=== PATIENT | male | born 1965 | race Caucasian/White ===

== ENCOUNTER 2018-06-07 11:35 | Inpatient (IN) | payer OTHER ==
[2018-06-07 12:41] VITALS: BMI 30.2
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
[2018-06-07] MEDS ORDERED: MAGNESIUM HYDROX 2400MG/30ML ORAL SUSPENSION 30 ML CUP PO PRN (17:07)
[2018-06-07] MEDS ORDERED: IBUPROFEN 400 MG TABLET (FP) PO PRN (17:07)
[2018-06-07] MEDS ORDERED: MAGNESIUM CITRATE 300 ML BOTTLE PO PRN (17:07)
[2018-06-07] MEDS ORDERED: MENTHOL/PHENOL 1 EACH UD MM PRN (17:07)
[2018-06-07] MEDS ORDERED: ACETAMINOPHEN 325 MG TABLET (FP) PO PRN (17:07)
[2018-06-07] MEDS ORDERED: chlordiazePOXIDE HCL 25 MG CAPSULE PO PRN (17:07)
[2018-06-07] MEDS ORDERED: P-EPHED 60MG/TRIPROLIDI 2.5MG TABLET PO PRN (17:07)
[2018-06-07] MEDS ORDERED: MAG HYDROX/AL HYDROX/SIMETH 30 ML UNIT-DOSE CUP PO PRN (17:07)
[2018-06-07] MEDS ORDERED: guaiFENesin/D-METHORPHAN HB 10 ML UNIT-DOSE CUPS PO PRN (17:07)
[2018-06-07] MEDS ORDERED: LOPERAMIDE HCL 2 MG CAPSULE PO PRN (17:07)
[2018-06-07] MEDS ORDERED: hydrOXYzine PAMOATE 50 MG CAPSULE (FP) PO PRN (17:07)
[2018-06-07] MEDS ORDERED: METHADONE HCL 10 MG TABLET (FOR DETOX USE ONLY) PO ONE ×2 (17:30→23:00)
[2018-06-07] MEDS ORDERED: chlordiazePOXIDE HCL 25 MG CAPSULE PO ONE (17:30)
[2018-06-07] MEDS: chlordiazePOXIDE HCL 25 MG CAPSULE PO SCH ×2 (19:59→22:38)
[2018-06-07] MEDS ORDERED: MELATONIN 5 MG TABLETS PO PRN (22:00)
[2018-06-07] MEDS: THIAMINE HCL 100 MG TABLET (FP) PO SCH (22:38)
[2018-06-08] MEDS: chlordiazePOXIDE HCL 25 MG CAPSULE PO SCH ×4 (06:22→22:22)
[2018-06-08] MEDS ORDERED: METHADONE HCL 10 MG TABLET (FOR DETOX USE ONLY) PO SCH (10:00)
[2018-06-08] MEDS: PRENATAL VITAMINS W/ FOLIC ACID TABLET (FP) PO SCH (10:08)
[2018-06-08] MEDS: HYDROCHLOROTHIAZIDE 25 MG TABLET (FP) PO SCH (10:09)
[2018-06-08] MEDS: NICOTINE POLACRILEX 4 MG GUM BC PRN (10:09)
--- NOTE | 2018-06-08 10:12 | PN ---
S CIWA - CIWA Score Nausea/Vomitin-No Nausea/No Vomiting Muscle Tremors: 4-Moderate,w/Arms Extend Anxiety: 4-Mod. Anxious/Guarded Agitation: 4-Moderately Restless Paroxysmal Sweats: 1-Minimal Palms Moist Orientation: 0-Oriented Tacttile Disturbances: 0-None Auditory Disturbances: 0-None Visual Disturbances: 0-None Headache: 0-None Present CIWA-Ar Total Score: 13 BHS COWS - Scale Resting Pulse: 0= [place] 80 or Below Sweatin= Chills/Flushing Restless Observation: 3= Extraneous Movement Pupil Size: 0= Normal to Room Light Bone or Joint Aches: 1= Mild Discomfort Runny Nose/ Eye Tearin= None GI Upset > 30mins: 0= None Tremor Observation of Outstretched Hands: 2= Slight Tremor Visible Yawning Observation: 2= >3x During Session Anxiety or Irritability: 2=Irritable/Anxious Goose Flesh Skin: 0=Smooth Skin COWS Score: 11 S Progress Note (SOAP) Subjective: ANXIETY,SWEATS,FATIGUE. Objective: 06/08/18 10:12 Vital Signs 06/08/18 06/08/18 06/08/18 03:29 06:30 06:46 Temperature 96.9 F L Pulse Rate 59 L Respiratory 18 18 18 Rate Blood Pressure 118/72 06/08/18 09:15 Temperature 97.2 F L Pulse Rate 58 L Respiratory 18 Rate Blood Pressure 108/67 OTHER LABS PENDING Assessment: 06/08/18 10:12 WITHDRAWAL SX Plan: CONTINUE DETOX
[2018-06-08 10:34] LABS: HEMATOCRIT 37.4 % (35.4-49); HEMOGLOBIN 12.3 GM/dL (11.7-16.9); MCH 29.4 pg (25.7-33.7); MEAN CELL VOLUME 89.2 fl (80-96); MEAN PLT VOLUME 9.9 fl (7.5-11.1); PLATELET COUNT 215 K/MM3 (134-434); RDW 13.1 % (11.9-15.9); WHITE BLOOD COUNT 6.5 K/mm3 (4.0-10.0)
[2018-06-08 10:34] LABS: URINE APPEARANCE CLEAR; URINE BILIRUBIN NEGATIVE (<2.0 mg/dL); URINE COLOR LTYELLOW; URINE GLUCOSE (UA) NEGATIVE (NEGATIVE); URINE KETONE NEGATIVE (NEGATIVE); URINE LEUK ESTERASE NEGATIVE (NEGATIVE); URINE NITRITE NEGATIVE (NEGATIVE); URINE PROTEIN NEGATIVE (NEGATIVE); URINE UROBILINOGEN NEGATIVE mg/dL (0.2-1.0)
[2018-06-08 10:42] LABS: ALBUMIN 3.4 g/dl (3.4-5.0); ALK PHOS 73 U/L (45-117); ANION GAP 6 MMOL/L (8-16); BILIRUBIN,TOTAL 0.2 mg/dL (0.2-1.0); BLOOD UREA NITROGEN 21 mg/dL (7-18); CALCIUM 8.7 mg/dL (8.5-10.1); CHLORIDE 104 mmol/L (98-107); CO2 32 mmol/L (21-32); CREATININE 0.9 mg/dL (0.7-1.3); GLUCOSE,RANDOM 117 mg/dL (74-106); POTASSIUM 4.3 mmol/L (3.5-5.1); SGOT/AST 16 U/L (15-37); SGPT/ALT 23 U/L (12-78); SODIUM 142 mmol/L (136-145); TOT PROT 7.1 g/dl (6.4-8.2)
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
[2018-06-08] MEDS ORDERED: PATIENT'S OWN MEDICATION (NON-FORMULARY) (Zolpidem Tartrate [Ambien] 10 MG) PO SCH (22:00)
[2018-06-08] MEDS: THIAMINE HCL 100 MG TABLET (FP) PO SCH (22:22)
[2018-06-08] MEDS: QUEtiapine FUMARATE 25 MG TABLET (FP) PO SCH (22:22)
[2018-06-08] MEDS: ZOLPIDEM TARTRATE 10 MG TABLET (PARK CARE ONLY) PO PRN (22:23)
[2018-06-09] MEDS: chlordiazePOXIDE HCL 25 MG CAPSULE PO SCH ×2 (05:41→10:02)
[2018-06-09] MEDS: PRENATAL VITAMINS W/ FOLIC ACID TABLET (FP) PO SCH (10:01)
[2018-06-09] MEDS: METHADONE HCL 5 MG TABLET (FOR DETOX USE ONLY) PO SCH (10:01)
[2018-06-09] MEDS: NICOTINE POLACRILEX 4 MG GUM BC PRN (10:02)
[2018-06-09] MEDS: HYDROCHLOROTHIAZIDE 25 MG TABLET (FP) PO SCH (10:02)
[2018-06-09] MEDS: LIDOCAINE 5% TOPICAL PATCH TP SCH (11:41)
--- NOTE | 2018-06-09 11:54 | PN ---
S CIWA - CIWA Score Nausea/Vomitin Muscle Tremors: 3 Anxiety: 3 Agitation: 3 Paroxysmal Sweats: 3 Orientation: 0-Oriented Tacttile Disturbances: 1-Very Mild Itch/Numbness Auditory Disturbances: 0-None Visual Disturbances: 0-None Headache: 1-Very Mild CIWA-Ar Total Score: 17 BHS COWS - Scale Resting Pulse: 0= [place] 80 or Below Sweatin= Chills/Flushing Restless Observation: 3= Extraneous Movement Pupil Size: 0= Normal to Room Light Bone or Joint Aches: 2= Severe Diffuse Aches Runny Nose/ Eye Tearin= Runny Nose/Eyes GI Upset > 30mins: 2= Nausea/Diarrhea Tremor Observation of Outstretched Hands: 2= Slight Tremor Visible Yawning Observation: 1= 1-2x During Session Anxiety or Irritability: 2=Irritable/Anxious Goose Flesh Skin: 0=Smooth Skin COWS Score: 15 S Progress Note (SOAP) Subjective: Tremor, back pain, interrupted sleep, body ache, teary eyes Objective: 06/09/18 11:52 Last Vital Signs Temp Pulse Resp BP Pulse Ox 97.2 F L 76 18 121/82 06/09/18 09:19 06/09/18 09:19 06/09/18 09:19 06/09/18 09:19 Laboratory Last Values WBC 6.5 K/mm3 (4.0-10.0) 06/08/18 08:00 RBC 4.20 M/mm3 (4.00-5.60) 06/08/18 08:00 Hgb 12.3 GM/dL (11.7-16.9) 06/08/18 08:00 Hct 37.4 % (35.4-49) 06/08/18 08:00 MCV 89.2 fl (80-96) 06/08/18 08:00 MCH 29.4 pg (25.7-33.7) 06/08/18 08:00 MCHC 33.0 g/dl (32.0-35.9) 06/08/18 08:00 RDW 13.1 % (11.9-15.9) 06/08/18 08:00 Plt Count 215 K/MM3 (134-434) 06/08/18 08:00 MPV 9.9 fl (7.5-11.1) 06/08/18 08:00 Sodium 142 mmol/L (136-145) 06/08/18 08:00 Potassium 4.3 mmol/L (3.5-5.1) 06/08/18 08:00 Chloride 104 mmol/L (98-107) 06/08/18 08:00 Carbon Dioxide 32 mmol/L (21-32) 06/08/18 08:00 Anion Gap 6 MMOL/L (8-16) L 06/08/18 08:00 BUN 21 mg/dL (7-18) H 06/08/18 08:00 Creatinine 0.9 mg/dL (0.7-1.3) 06/08/18 08:00 Creat Clearance w eGFR > 60 (>60) 06/08/18 08:00 Random Glucose 117 mg/dL (74-106) H 06/08/18 08:00 Calcium 8.7 mg/dL (8.5-10.1) 06/08/18 08:00 Total Bilirubin 0.2 mg/dL (0.2-1.0) 06/08/18 08:00 AST 16 U/L (15-37) 06/08/18 08:00 ALT 23 U/L (12-78) 06/08/18 08:00 Alkaline Phosphatase 73 U/L (45-117) 06/08/18 08:00 Total Protein 7.1 g/dl (6.4-8.2) 06/08/18 08:00 Albumin 3.4 g/dl (3.4-5.0) 06/08/18 08:00 Urine Color Ltyellow 06/08/18 08:20 Urine Appearance Clear 06/08/18 08:20 Urine pH 6.0 (5.0-8.0) 06/08/18 08:20 Ur Specific [place] 1.019 (1.001-1.035) 06/08/18 08:20 Urine Protein Negative (NEGATIVE) 06/08/18 08:20 Urine Glucose (UA) Negative (NEGATIVE) 06/08/18 08:20 Urine Ketones Negative (NEGATIVE) 06/08/18 08:20 Urine Blood Negative (NEGATIVE) 06/08/18 08:20 Urine Nitrite Negative (NEGATIVE) 06/08/18 08:20 Urine Bilirubin Negative (<2.0 mg/dL) 06/08/18 08:20 Urine Urobilinogen Negative mg/dL (0.2-1.0) 06/08/18 08:20 Ur Leukocyte Esterase Negative (NEGATIVE) 06/08/18 08:20 RPR Titer Nonreactive (NONREACTIVE) 06/08/18 08:00 HIV 1&2 Antibody Screen Negative 06/08/18 08:00 HIV P24 Antigen Negative 06/08/18 08:00 Labs reviewed Assessment: 06/09/18 11:53 Withdrawal sxs Plan: Continue detox Encouraged PO water hydration
[2018-06-09] MEDS: chlordiazePOXIDE 5 MG CAPSULE PO SCH ×2 (17:26→22:09)
[2018-06-09] MEDS: LIDOCAINE PATCH REMOVAL MC SCH (22:09)
[2018-06-09] MEDS: THIAMINE HCL 100 MG TABLET (FP) PO SCH (22:09)
[2018-06-09] MEDS: ZOLPIDEM TARTRATE 10 MG TABLET (PARK CARE ONLY) PO PRN (22:09)
[2018-06-09] MEDS: QUEtiapine FUMARATE 25 MG TABLET (FP) PO SCH (22:09)
[2018-06-10] MEDS: chlordiazePOXIDE 5 MG CAPSULE PO SCH ×2 (06:07→10:12)
[2018-06-10] MEDS: PRENATAL VITAMINS W/ FOLIC ACID TABLET (FP) PO SCH (10:11)
[2018-06-10] MEDS: METHADONE HCL 5 MG TABLET (FOR DETOX USE ONLY) PO SCH (10:11)
[2018-06-10] MEDS: HYDROCHLOROTHIAZIDE 25 MG TABLET (FP) PO SCH (10:11)
[2018-06-10] MEDS: LIDOCAINE 5% TOPICAL PATCH TP SCH (10:14)
--- NOTE | 2018-06-10 10:39 | PN ---
BHS Progress Note (SOAP) Subjective: BACK ACHE, HOT/COLD SWEATS,TREMORS. Objective: 06/10/18 10:39 Vital Signs 06/10/18 06/10/18 06/10/18 03:19 06:06 06:30 Temperature 96.9 F L Pulse Rate 62 Respiratory 18 20 18 Rate Blood Pressure 108/68 06/10/18 09:39 Temperature 96.8 F L Pulse Rate 78 Respiratory 18 Rate Blood Pressure 104/66 Laboratory Tests 06/08/18 06/08/18 06/08/18 08:00 08:00 08:00 WBC 6.5 RBC 4.20 Hgb 12.3 Hct 37.4 MCV 89.2 MCH 29.4 MCHC 33.0 RDW 13.1 Plt Count 215 MPV 9.9 Sodium 142 Potassium 4.3 Chloride 104 Carbon Dioxide 32 Anion Gap 6 L BUN 21 H Creatinine 0.9 Creat Clearance w eGFR > 60 Random Glucose 117 H Calcium 8.7 Total Bilirubin 0.2 AST 16 ALT 23 Alkaline Phosphatase 73 Total Protein 7.1 Albumin 3.4 Urine Color Urine Appearance Urine pH Ur Specific [place] Urine Protein Urine Glucose (UA) Urine Ketones Urine Blood Urine Nitrite Urine Bilirubin Urine Urobilinogen Ur Leukocyte Esterase RPR Titer HIV 1&2 Antibody Screen Negative HIV P24 Antigen Negative 06/08/18 06/08/18 08:00 08:20 WBC RBC Hgb Hct MCV MCH MCHC RDW Plt Count MPV Sodium Potassium Chloride Carbon Dioxide Anion Gap BUN Creatinine Creat Clearance w eGFR Random Glucose Calcium Total Bilirubin AST ALT Alkaline Phosphatase Total Protein Albumin Urine Color Ltyellow Urine Appearance Clear Urine pH 6.0 Ur Specific [place] 1.019 Urine Protein Negative Urine Glucose (UA) Negative Urine Ketones Negative Urine Blood Negative Urine Nitrite Negative Urine Bilirubin Negative Urine Urobilinogen Negative Ur Leukocyte Esterase Negative RPR Titer Nonreactive HIV 1&2 Antibody Screen HIV P24 Antigen Assessment: 06/10/18 10:39 WITHDRAWAL SX Plan: CONTINUE DETOX MOTRIN PRN
--- NOTE | 2018-06-10 11:25 | EKG ---
Test Reason : Blood Pressure : / mmHG Vent. Rate : 060 BPM Atrial Rate : 060 BPM P-R Int : 132 ms QRS Dur : 086 ms QT Int : 456 ms P-R-T Axes : 040 030 044 degrees QTc Int : 456 ms NORMAL SINUS RHYTHM NORMAL ECG NO PREVIOUS ECGS AVAILABLE Confirmed by LLOYD RATLIFF MD ([id number]) on 06/10/2018 11:25:22 AM Referred By: Confirmed By:LLOYD RATLIFF MD
[2018-06-10] MEDS: NICOTINE POLACRILEX 4 MG GUM BC PRN (11:32)
[2018-06-10] MEDS: chlordiazePOXIDE HCL 10 MG CAPSULE PO SCH ×2 (17:19→22:15)
[2018-06-10] MEDS: THIAMINE HCL 100 MG TABLET (FP) PO SCH (22:15)
[2018-06-10] MEDS: QUEtiapine FUMARATE 25 MG TABLET (FP) PO SCH (22:16)
[2018-06-10] MEDS: ZOLPIDEM TARTRATE 10 MG TABLET (PARK CARE ONLY) PO PRN (22:16)
[2018-06-10] MEDS: LIDOCAINE PATCH REMOVAL MC SCH (23:18)
[2018-06-11] MEDS: chlordiazePOXIDE HCL 10 MG CAPSULE PO SCH ×2 (05:08→10:02)
[2018-06-11] MEDS ORDERED: METHADONE HCL 10 MG TABLET (FOR DETOX USE ONLY) PO SCH (10:00)
[2018-06-11] MEDS: PRENATAL VITAMINS W/ FOLIC ACID TABLET (FP) PO SCH (10:02)
[2018-06-11] MEDS: HYDROCHLOROTHIAZIDE 25 MG TABLET (FP) PO SCH (10:02)
[2018-06-11] MEDS: LIDOCAINE 5% TOPICAL PATCH TP SCH (10:02)
--- NOTE | 2018-06-11 11:45 | PN ---
S Progress Note (SOAP) Subjective: DECREASED ANXIETY, SWEATS, TREMORS. DETOX TAPER PROCEEDING WELL. Objective: 06/11/18 11:44 Vital Signs 06/11/18 06/11/18 06:19 10:02 Temperature 98.1 F 97.3 F L Pulse Rate 60 73 Respiratory 18 18 Rate Blood Pressure 100/55 122/77 Laboratory Tests 06/08/18 06/08/18 06/08/18 08:00 08:00 08:00 WBC 6.5 RBC 4.20 Hgb 12.3 Hct 37.4 MCV 89.2 MCH 29.4 MCHC 33.0 RDW 13.1 Plt Count 215 MPV 9.9 Sodium 142 Potassium 4.3 Chloride 104 Carbon Dioxide 32 Anion Gap 6 L BUN 21 H Creatinine 0.9 Creat Clearance w eGFR > 60 Random Glucose 117 H Calcium 8.7 Total Bilirubin 0.2 AST 16 ALT 23 Alkaline Phosphatase 73 Total Protein 7.1 Albumin 3.4 Urine Color Urine Appearance Urine pH Ur Specific [place] Urine Protein Urine Glucose (UA) Urine Ketones Urine Blood Urine Nitrite Urine Bilirubin Urine Urobilinogen Ur Leukocyte Esterase RPR Titer HIV 1&2 Antibody Screen Negative HIV P24 Antigen Negative 06/08/18 06/08/18 08:00 08:20 WBC RBC Hgb Hct MCV MCH MCHC RDW Plt Count MPV Sodium Potassium Chloride Carbon Dioxide Anion Gap BUN Creatinine Creat Clearance w eGFR Random Glucose Calcium Total Bilirubin AST ALT Alkaline Phosphatase Total Protein Albumin Urine Color Ltyellow Urine Appearance Clear Urine pH 6.0 Ur Specific [place] 1.019 Urine Protein Negative Urine Glucose (UA) Negative Urine Ketones Negative Urine Blood Negative Urine Nitrite Negative Urine Bilirubin Negative Urine Urobilinogen Negative Ur Leukocyte Esterase Negative RPR Titer Nonreactive HIV 1&2 Antibody Screen HIV P24 Antigen Assessment: 06/11/18 11:44 DECREASED WITHDRAWAL SX Plan: CONTINUE DETOX.
[2018-06-11] MEDS: THIAMINE HCL 100 MG TABLET (FP) PO SCH (21:37)
[2018-06-11] MEDS: QUEtiapine FUMARATE 25 MG TABLET (FP) PO SCH (21:37)
[2018-06-11] MEDS: LIDOCAINE PATCH REMOVAL MC SCH (22:48)
[2018-06-12] MEDS ORDERED: METHADONE HCL 5 MG TABLET (FOR DETOX USE ONLY) PO SCH (06:00)
[2018-06-12 06:01] VITALS: BP 101/57; PULSE 61; TEMP 97.2
--- NOTE | 2018-06-12 15:50 | DS ---
[facility] Detox Discharge Summary Admission Date: 06/07/18 Discharge Date: 06/12/18 - History Present History: Alcohol Dependence, Opioid Dependence Additional Comments: DETOX COMPLETED. - Physical Exam Results Vital Signs: Vital Signs Temperature 97.2 F L 06/12/18 06:00 Pulse Rate 61 06/12/18 06:00 Respiratory Rate 18 06/12/18 06:00 Blood Pressure 101/57 06/12/18 06:00 O2 Sat by Pulse Oximetry (%) Pertinent Admission Physical Exam Findings: WITHDRAWAL SX Laboratory Tests 06/08/18 06/08/18 06/08/18 08:00 08:00 08:00 WBC 6.5 RBC 4.20 Hgb 12.3 Hct 37.4 MCV 89.2 MCH 29.4 MCHC 33.0 RDW 13.1 Plt Count 215 MPV 9.9 Sodium 142 Potassium 4.3 Chloride 104 Carbon Dioxide 32 Anion Gap 6 L BUN 21 H Creatinine 0.9 Creat Clearance w eGFR > 60 Random Glucose 117 H Calcium 8.7 Total Bilirubin 0.2 AST 16 ALT 23 Alkaline Phosphatase 73 Total Protein 7.1 Albumin 3.4 Urine Color Urine Appearance Urine pH Ur Specific [place] Urine Protein Urine Glucose (UA) Urine Ketones Urine Blood Urine Nitrite Urine Bilirubin Urine Urobilinogen Ur Leukocyte Esterase RPR Titer HIV 1&2 Antibody Screen Negative HIV P24 Antigen Negative 06/08/18 06/08/18 08:00 08:20 WBC RBC Hgb Hct MCV MCH MCHC RDW Plt Count MPV Sodium Potassium Chloride Carbon Dioxide Anion Gap BUN Creatinine Creat Clearance w eGFR Random Glucose Calcium Total Bilirubin AST ALT Alkaline Phosphatase Total Protein Albumin Urine Color Ltyellow Urine Appearance Clear Urine pH 6.0 Ur Specific [place] 1.019 Urine Protein Negative Urine Glucose (UA) Negative Urine Ketones Negative Urine Blood Negative Urine Nitrite Negative Urine Bilirubin Negative Urine Urobilinogen Negative Ur Leukocyte Esterase Negative RPR Titer Nonreactive HIV 1&2 Antibody Screen HIV P24 Antigen - Treatment Hospital Course: Detox Protocol Followed, Detoxed Safely, Responded well, Discharged Condition Good - Medication Discharge Medications: Ambulatory Orders Hydrochlorothiazide [Hctz -] 25 mg PO DAILY 06/07/18 Quetiapine Fumarate [Seroquel -] 25 mg PO HS 06/07/18 Zolpidem Tartrate [Ambien] 10 mg PO HS 06/07/18 - Diagnosis (1) HTN (hypertension) Status: Chronic Qualifiers: Hypertension type: essential hypertension Qualified Code(s): I10 - Essential (primary) hypertension (2) Alcohol dependence with uncomplicated withdrawal Status: Acute (3) Nicotine dependence Status: Chronic Qualifiers: Nicotine product type: cigarettes Substance use status: in withdrawal Qualified Code(s): F17.213 - Nicotine dependence, cigarettes, with withdrawal (4) Obesity (BMI 30.0-34.9) Status: Chronic (5) Opioid dependence with withdrawal Status: Acute - AMA Did Patient Leave Against Medical Advice: No
== END 2018-06-12 07:17 | disposition home or self-care (01) | DRG 773 ==
LOC: YASAS 11:35 → Y3N 16:41
PROC: HZ2ZZZZ Detoxification Services for Substance Abuse Treatment (ICD-10-PCS; principal; 2018-06-07)
DX: F10.230 Alcohol dependence with withdrawal, uncomplicated (principal); F11.23 Opioid dependence with withdrawal; F17.213 Nicotine dependence, cigarettes, with withdrawal; F43.10 Post-traumatic stress disorder, unspecified; F19.24 Other psychoactive substance dependence with psychoactive substance-induced mood disorder; F31.9 Bipolar disorder, unspecified; F20.9 Schizophrenia, unspecified; G47.00 Insomnia, unspecified; I10 Essential (primary) hypertension; M54.5 Low back pain; G89.29 Other chronic pain; H18.9 Unspecified disorder of cornea; Z87.828 Personal history of other (healed) physical injury and trauma; E66.9 Obesity, unspecified; Z68.30 Body mass index [BMI] 30.0-30.9, adult; Z91.5 Personal history of self-harm
CPT/HCPCS: 36415; 80053; 81003; 85027; 86593; 87389; 93005; 93010

== ENCOUNTER 2018-08-02 13:24 | Inpatient (IN) | payer OTHER ==
[2018-08-02 15:40] VITALS: BMI 30.4
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
[2018-08-02] MEDS ORDERED: IBUPROFEN 400 MG TABLET (FP) PO PRN (18:12)
[2018-08-02] MEDS ORDERED: MAGNESIUM CITRATE 300 ML BOTTLE PO PRN (18:12)
[2018-08-02] MEDS ORDERED: chlordiazePOXIDE HCL 25 MG CAPSULE PO PRN (18:12)
[2018-08-02] MEDS ORDERED: MAG HYDROX/AL HYDROX/SIMETH 30 ML UNIT-DOSE CUP PO PRN (18:12)
[2018-08-02] MEDS ORDERED: ACETAMINOPHEN 325 MG TABLET (FP) PO PRN (18:12)
[2018-08-02] MEDS ORDERED: MENTHOL/PHENOL 1 EACH UD MM PRN (18:12)
[2018-08-02] MEDS ORDERED: MAGNESIUM HYDROX 2400MG/30ML ORAL SUSPENSION 30 ML CUP PO PRN (18:12)
[2018-08-02] MEDS ORDERED: LOPERAMIDE HCL 2 MG CAPSULE PO PRN (18:12)
[2018-08-02] MEDS ORDERED: chlordiazePOXIDE HCL 25 MG CAPSULE PO ONE (18:30)
[2018-08-02] MEDS ORDERED: METHADONE HCL 10 MG TABLET (FOR DETOX USE ONLY) PO ONE ×2 (18:45→23:00)
[2018-08-02] MEDS ORDERED: MELATONIN 5 MG TABLETS PO PRN (22:00)
[2018-08-02] MEDS: chlordiazePOXIDE HCL 25 MG CAPSULE PO SCH (22:19)
[2018-08-02] MEDS: THIAMINE HCL 100 MG TABLET (FP) PO SCH (22:19)
[2018-08-02 23:27] LABS: URINE APPEARANCE TURBID; URINE BILIRUBIN NEGATIVE (<2.0 mg/dL); URINE COLOR YELLOW; URINE GLUCOSE (UA) NEGATIVE (NEGATIVE); URINE KETONE NEGATIVE (NEGATIVE); URINE LEUK ESTERASE NEGATIVE (NEGATIVE); URINE NITRITE NEGATIVE (NEGATIVE); URINE PROTEIN NEGATIVE (NEGATIVE)
[2018-08-03] MEDS: chlordiazePOXIDE HCL 25 MG CAPSULE PO SCH ×4 (05:58→22:34)
[2018-08-03] MEDS ORDERED: METHADONE HCL 10 MG TABLET (FOR DETOX USE ONLY) PO SCH (10:00)
[2018-08-03 10:16] LABS: HEMATOCRIT 38.4 % (35.4-49); HEMOGLOBIN 13.1 GM/dL (11.7-16.9); MCH 30.3 pg (25.7-33.7); PLATELET COUNT 147 K/MM3 (134-434); RBC 4.31 M/mm3 (4.00-5.60); WHITE BLOOD COUNT 6.1 K/mm3 (4.0-10.0)
[2018-08-03] MEDS: PRENATAL VITAMINS W/ FOLIC ACID TABLET (FP) PO SCH (10:39)
[2018-08-03 11:02] LABS: ALBUMIN 3.4 g/dl (3.4-5.0); ALK PHOS 51 U/L (45-117); ANION GAP 10 MMOL/L (8-16); BILIRUBIN,TOTAL 0.3 mg/dL (0.2-1); BLOOD UREA NITROGEN 16 mg/dL (7-18); CALCIUM 8.5 mg/dL (8.5-10.1); CHLORIDE 106 mmol/L (98-107); CO2 27 mmol/L (21-32); CREATININE 0.9 mg/dL (0.55-1.3); GLUCOSE,RANDOM 95 mg/dL (74-106); POTASSIUM 4.2 mmol/L (3.5-5.1); SGOT/AST 14 U/L (15-37); SGPT/ALT 22 U/L (13-61); SODIUM 143 mmol/L (136-145); TOT PROT 6.3 g/dl (6.4-8.2)
--- NOTE | 2018-08-03 11:39 | PN ---
S CIWA - CIWA Score Nausea/Vomitin-No Nausea/No Vomiting Muscle Tremors: 1-None Visible, but Webb Anxiety: 2 Agitation: 2 Paroxysmal Sweats: 2 Orientation: 0-Oriented Tacttile Disturbances: 0-None Auditory Disturbances: 0-None Visual Disturbances: 0-None Headache: 0-None Present CIWA-Ar Total Score: 7 S COWS - Scale Resting Pulse: 0= [place] 80 or Below Sweatin=Flushed/Facial Moisture Restless Observation: 1= Difficult to Sit Still Pupil Size: 0= Normal to Room Light Bone or Joint Aches: 0= None Runny Nose/ Eye Tearin= None GI Upset > 30mins: 0= None Tremor Observation of Outstretched Hands: 1= Tremor Webb, Not Seen Yawning Observation: 0= None Anxiety or Irritability: 2=Irritable/Anxious Goose Flesh Skin: 0=Smooth Skin COWS Score: 6 S Progress Note (SOAP) Subjective: PATIENT C/O ANXIETY, RESTLESS, CHILLS AND SWEATING. Objective: 08/03/18 11:38 Vital Signs Temperature 98.2 F 08/03/18 09:38 Pulse Rate 63 08/03/18 09:38 Respiratory Rate 18 08/03/18 09:38 Blood Pressure 109/67 08/03/18 09:38 O2 Sat by Pulse Oximetry (%) Laboratory Tests 08/02/18 08/03/18 08/03/18 21:31 08:00 08:00 WBC 6.1 RBC 4.31 Hgb 13.1 Hct 38.4 MCV 89.0 MCH 30.3 MCHC 34.0 RDW 15.0 D Plt Count 147 D MPV 11.0 D Sodium 143 Potassium 4.2 Chloride 106 Carbon Dioxide 27 Anion Gap 10 BUN 16 Creatinine 0.9 Creat Clearance w eGFR > 60 Random Glucose 95 Calcium 8.5 Total Bilirubin 0.3 AST 14 L ALT 22 Alkaline Phosphatase 51 Total Protein 6.3 L Albumin 3.4 Urine Color Yellow Urine Appearance Turbid Urine pH 5.0 Ur Specific [place] 1.030 Urine Protein Negative Urine Glucose (UA) Negative Urine Ketones Negative Urine Blood Negative Urine Nitrite Negative Urine Bilirubin Negative Urine Urobilinogen 2.0 Ur Leukocyte Esterase Negative PE: ALERT AND ORIENTED SKIN WARM AND MOIST EXT MILD TREMORS FELT, NO EDEMA, FULL ROM AMB AD ALEXANDRO Assessment: 08/03/18 11:39 WITHDRAWAL SYNDROME Plan: CONTINUE DETOX ORDERED ENCOURAGE ORAL FLUIDS CONTINUE TO MONITOR CLINICALLY
--- NOTE | 2018-08-03 12:25 | EKG ---
Test Reason : Blood Pressure : / mmHG Vent. Rate : 074 BPM Atrial Rate : 074 BPM P-R Int : 126 ms QRS Dur : 080 ms QT Int : 388 ms P-R-T Axes : 018 037 046 degrees QTc Int : 430 ms NORMAL SINUS RHYTHM NORMAL ECG WHEN COMPARED WITH ECG OF 07-JUN-2018 19:31, NO SIGNIFICANT CHANGE WAS FOUND Confirmed by MARIAH BRADLEY MD ([id number]) on 08/03/2018 12:24:49 PM Referred By: Confirmed By:MARIAH BRADLEY MD
[2018-08-03] MEDS: NICOTINE POLACRILEX 2 MG GUM BC PRN (13:03)
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
[2018-08-03] MEDS: THIAMINE HCL 100 MG TABLET (FP) PO SCH (22:34)
[2018-08-04] MEDS: chlordiazePOXIDE HCL 25 MG CAPSULE PO SCH ×3 (05:22→17:42)
--- NOTE | 2018-08-04 10:34 | PN ---
[facility] CIWA - CIWA Score Nausea/Vomitin-No Nausea/No Vomiting Muscle Tremors: 3 Anxiety: 2 Agitation: 2 Paroxysmal Sweats: 1-Minimal Palms Moist Orientation: 0-Oriented Tacttile Disturbances: 0-None Auditory Disturbances: 0-None Visual Disturbances: 0-None Headache: 0-None Present CIWA-Ar Total Score: 8 [facility] COWS - Scale Resting Pulse: 0= [place] 80 or Below Sweatin= Chills/Flushing Restless Observation: 1= Difficult to Sit Still Pupil Size: 0= Normal to Room Light Bone or Joint Aches: 1= Mild Discomfort Runny Nose/ Eye Tearin= Nasal Congestion GI Upset > 30mins: 1= Stomach Cramp Tremor Observation of Outstretched Hands: 2= Slight Tremor Visible Yawning Observation: 1= 1-2x During Session Anxiety or Irritability: 1=Feels Anxious/Irritable Goose Flesh Skin: 0=Smooth Skin COWS Score: 9 S Progress Note (SOAP) Subjective: sweat tremor trouble sleep at night anxiety restlessnes Objective: 08/04/18 10:35 Vital Signs Temperature 97.7 F 08/04/18 09:29 Pulse Rate 64 08/04/18 09:29 Respiratory Rate 16 08/04/18 09:29 Blood Pressure 133/81 08/04/18 09:29 O2 Sat by Pulse Oximetry (%) Laboratory Last Values WBC 6.1 K/mm3 (4.0-10.0) 08/03/18 08:00 RBC 4.31 M/mm3 (4.00-5.60) 08/03/18 08:00 Hgb 13.1 GM/dL (11.7-16.9) 08/03/18 08:00 Hct 38.4 % (35.4-49) 08/03/18 08:00 MCV 89.0 fl (80-96) 08/03/18 08:00 MCH 30.3 pg (25.7-33.7) 08/03/18 08:00 MCHC 34.0 g/dl (32.0-35.9) 08/03/18 08:00 RDW 15.0 % (11.9-15.9) D 08/03/18 08:00 Plt Count 147 K/MM3 (134-434) D 08/03/18 08:00 MPV 11.0 fl (7.5-11.1) D 08/03/18 08:00 Sodium 143 mmol/L (136-145) 08/03/18 08:00 Potassium 4.2 mmol/L (3.5-5.1) 08/03/18 08:00 Chloride 106 mmol/L (98-107) 08/03/18 08:00 Carbon Dioxide 27 mmol/L (21-32) 08/03/18 08:00 Anion Gap 10 MMOL/L (8-16) 08/03/18 08:00 BUN 16 mg/dL (7-18) 08/03/18 08:00 Creatinine 0.9 mg/dL (0.55-1.3) 08/03/18 08:00 Creat Clearance w eGFR > 60 (>60) 08/03/18 08:00 Random Glucose 95 mg/dL (74-106) 08/03/18 08:00 Calcium 8.5 mg/dL (8.5-10.1) 08/03/18 08:00 Total Bilirubin 0.3 mg/dL (0.2-1) 08/03/18 08:00 AST 14 U/L (15-37) L 08/03/18 08:00 ALT 22 U/L (13-61) 08/03/18 08:00 Alkaline Phosphatase 51 U/L (45-117) 08/03/18 08:00 Total Protein 6.3 g/dl (6.4-8.2) L 08/03/18 08:00 Albumin 3.4 g/dl (3.4-5.0) 08/03/18 08:00 Urine Color Yellow 08/02/18 21:31 Urine Appearance Turbid 08/02/18 21: Urine pH 5.0 (5.0-8.0) 08/02/18 21:31 Ur Specific [place] 1.030 (1.010-1.035) 08/02/18 21: Urine Protein Negative (NEGATIVE) 08/02/18 21: Urine Glucose (UA) Negative (NEGATIVE) 08/02/18 21: Urine Ketones Negative (NEGATIVE) 08/02/18 21: Urine Blood Negative (NEGATIVE) 08/02/18 21: Urine Nitrite Negative (NEGATIVE) 08/02/18 21:31 Urine Bilirubin Negative (<2.0 mg/dL) 08/02/18 21:31 Urine Urobilinogen 2.0 mg/dL (0.2-1.0) 08/02/18 21:31 Ur Leukocyte Esterase Negative (NEGATIVE) 08/02/18 21:31 RPR Titer Nonreactive (NONREACTIVE) 08/03/18 08:00 lab noted Assessment: 08/04/18 10:35 withdrawal sx Plan: continue detox
[2018-08-04] MEDS: PRENATAL VITAMINS W/ FOLIC ACID TABLET (FP) PO SCH (10:37)
[2018-08-04] MEDS: METHADONE HCL 5 MG TABLET (FOR DETOX USE ONLY) PO SCH (10:39)
[2018-08-04] MEDS: THIAMINE HCL 100 MG TABLET (FP) PO SCH (22:07)
[2018-08-04] MEDS: chlordiazePOXIDE 5 MG CAPSULE PO SCH (22:07)
[2018-08-05] MEDS: chlordiazePOXIDE 5 MG CAPSULE PO SCH ×3 (05:49→17:53)
[2018-08-05] MEDS: PRENATAL VITAMINS W/ FOLIC ACID TABLET (FP) PO SCH (10:20)
[2018-08-05] MEDS: METHADONE HCL 5 MG TABLET (FOR DETOX USE ONLY) PO SCH (10:21)
[2018-08-05] MEDS: NICOTINE POLACRILEX 2 MG GUM BC PRN (11:49)
--- NOTE | 2018-08-05 12:26 | PN ---
[facility] Progress Note (SOAP) Subjective: sweat tremor restlessness body aches joints pain back pain Objective: 08/05/18 12:25 Vital Signs Temperature 98.1 F 08/05/18 09:19 Pulse Rate 72 08/05/18 09:19 Respiratory Rate 20 08/05/18 09:19 Blood Pressure 120/66 08/05/18 09:19 O2 Sat by Pulse Oximetry (%) Laboratory Last Values WBC 6.1 K/mm3 (4.0-10.0) 08/03/18 08:00 RBC 4.31 M/mm3 (4.00-5.60) 08/03/18 08:00 Hgb 13.1 GM/dL (11.7-16.9) 08/03/18 08:00 Hct 38.4 % (35.4-49) 08/03/18 08:00 MCV 89.0 fl (80-96) 08/03/18 08:00 MCH 30.3 pg (25.7-33.7) 08/03/18 08:00 MCHC 34.0 g/dl (32.0-35.9) 08/03/18 08:00 RDW 15.0 % (11.9-15.9) D 08/03/18 08:00 Plt Count 147 K/MM3 (134-434) D 08/03/18 08:00 MPV 11.0 fl (7.5-11.1) D 08/03/18 08:00 Sodium 143 mmol/L (136-145) 08/03/18 08:00 Potassium 4.2 mmol/L (3.5-5.1) 08/03/18 08:00 Chloride 106 mmol/L (98-107) 08/03/18 08:00 Carbon Dioxide 27 mmol/L (21-32) 08/03/18 08:00 Anion Gap 10 MMOL/L (8-16) 08/03/18 08:00 BUN 16 mg/dL (7-18) 08/03/18 08:00 Creatinine 0.9 mg/dL (0.55-1.3) 08/03/18 08:00 Creat Clearance w eGFR > 60 (>60) 08/03/18 08:00 Random Glucose 95 mg/dL (74-106) 08/03/18 08:00 Calcium 8.5 mg/dL (8.5-10.1) 08/03/18 08:00 Total Bilirubin 0.3 mg/dL (0.2-1) 08/03/18 08:00 AST 14 U/L (15-37) L 08/03/18 08:00 ALT 22 U/L (13-61) 08/03/18 08:00 Alkaline Phosphatase 51 U/L (45-117) 08/03/18 08:00 Total Protein 6.3 g/dl (6.4-8.2) L 08/03/18 08:00 Albumin 3.4 g/dl (3.4-5.0) 08/03/18 08:00 Urine Color Yellow 08/02/18 21: Urine Appearance Turbid 08/02/18 21: Urine pH 5.0 (5.0-8.0) 08/02/18 21: Ur Specific [place] 1.030 (1.010-1.035) 08/02/18 21:31 Urine Protein Negative (NEGATIVE) 08/02/18 21: Urine Glucose (UA) Negative (NEGATIVE) 08/02/18 21: Urine Ketones Negative (NEGATIVE) 08/02/18 21: Urine Blood Negative (NEGATIVE) 08/02/18 21: Urine Nitrite Negative (NEGATIVE) 08/02/18 21: Urine Bilirubin Negative (<2.0 mg/dL) 08/02/18 21: Urine Urobilinogen 2.0 mg/dL (0.2-1.0) 08/02/18 21: Ur Leukocyte Esterase Negative (NEGATIVE) 08/02/18 21: RPR Titer Nonreactive (NONREACTIVE) 08/03/18 08:00 lab noted Assessment: 08/05/18 12:26 withdrawal sx Plan: continue detox
[2018-08-05] MEDS: THIAMINE HCL 100 MG TABLET (FP) PO SCH (22:08)
[2018-08-05] MEDS: chlordiazePOXIDE HCL 10 MG CAPSULE PO SCH (22:08)
[2018-08-06] MEDS: chlordiazePOXIDE HCL 10 MG CAPSULE PO SCH ×3 (06:07→17:51)
[2018-08-06] MEDS ORDERED: METHADONE HCL 10 MG TABLET (FOR DETOX USE ONLY) PO SCH (10:00)
[2018-08-06] MEDS: PRENATAL VITAMINS W/ FOLIC ACID TABLET (FP) PO SCH (11:03)
--- NOTE | 2018-08-06 13:32 | DS ---
[facility] Detox Discharge Summary Admission Date: 08/02/18 Discharge Date: 08/06/18 - History Present History: Alcohol Dependence, Opioid Dependence Additional Comments: 52 years old male admitted on 08/02/18 for alcohol and opiate withdrawal sx insists to leave the detox unit with his roommate date of 04/18/69 patient is alert oriented x 3 no acute distress denies suicidal denies homocidal no self destructive behavior Pertinent Past History: patient agrees to consider revelation - Physical Exam Results Vital Signs: Vital Signs Temperature 96.6 F L 08/06/18 09:42 Pulse Rate 89 08/06/18 09:42 Respiratory Rate 18 08/06/18 09:42 Blood Pressure 124/83 08/06/18 09:42 O2 Sat by Pulse Oximetry (%) Pertinent Admission Physical Exam Findings: alcohol and opiate withdrawal sx Vital Signs Temperature 96.6 F L 08/06/18 09:42 Pulse Rate 89 08/06/18 09:42 Respiratory Rate 18 08/06/18 09:42 Blood Pressure 124/83 08/06/18 09:42 O2 Sat by Pulse Oximetry (%) Laboratory Last Values WBC 6.1 K/mm3 (4.0-10.0) 08/03/18 08:00 RBC 4.31 M/mm3 (4.00-5.60) 08/03/18 08:00 Hgb 13.1 GM/dL (11.7-16.9) 08/03/18 08:00 Hct 38.4 % (35.4-49) 08/03/18 08:00 MCV 89.0 fl (80-96) 08/03/18 08:00 MCH 30.3 pg (25.7-33.7) 08/03/18 08:00 MCHC 34.0 g/dl (32.0-35.9) 08/03/18 08:00 RDW 15.0 % (11.9-15.9) D 08/03/18 08:00 Plt Count 147 K/MM3 (134-434) D 08/03/18 08:00 MPV 11.0 fl (7.5-11.1) D 08/03/18 08:00 Sodium 143 mmol/L (136-145) 08/03/18 08:00 Potassium 4.2 mmol/L (3.5-5.1) 08/03/18 08:00 Chloride 106 mmol/L (98-107) 08/03/18 08:00 Carbon Dioxide 27 mmol/L (21-32) 08/03/18 08:00 Anion Gap 10 MMOL/L (8-16) 08/03/18 08:00 BUN 16 mg/dL (7-18) 08/03/18 08:00 Creatinine 0.9 mg/dL (0.55-1.3) 08/03/18 08:00 Creat Clearance w eGFR > 60 (>60) 08/03/18 08:00 Random Glucose 95 mg/dL (74-106) 08/03/18 08:00 Calcium 8.5 mg/dL (8.5-10.1) 08/03/18 08:00 Total Bilirubin 0.3 mg/dL (0.2-1) 08/03/18 08:00 AST 14 U/L (15-37) L 08/03/18 08:00 ALT 22 U/L (13-61) 08/03/18 08:00 Alkaline Phosphatase 51 U/L (45-117) 08/03/18 08:00 Total Protein 6.3 g/dl (6.4-8.2) L 08/03/18 08:00 Albumin 3.4 g/dl (3.4-5.0) 08/03/18 08:00 Urine Color Yellow 08/02/18 21: Urine Appearance Turbid 08/02/18 21: Urine pH 5.0 (5.0-8.0) 08/02/18 21: Ur Specific [place] 1.030 (1.010-1.035) 08/02/18 21: Urine Protein Negative (NEGATIVE) 08/02/18 21: Urine Glucose (UA) Negative (NEGATIVE) 08/02/18 21: Urine Ketones Negative (NEGATIVE) 08/02/18 21: Urine Blood Negative (NEGATIVE) 08/02/18: Urine Nitrite Negative (NEGATIVE) 08/02/18 21: Urine Bilirubin Negative (<2.0 mg/dL) 08/02/18 21: Urine Urobilinogen 2.0 mg/dL (0.2-1.0) 08/02/18 21: Ur Leukocyte Esterase Negative (NEGATIVE) 08/02/18 21:31 RPR Titer Nonreactive (NONREACTIVE) 08/03/18 08:00 lab noted - Treatment Hospital Course: Detox Protocol Followed, Responded well Patient has Accepted a Rehab Referral to: kathya - Medication Discharge Medications: Ambulatory Orders NK [No Known Home Medication] 08/02/18 - Diagnosis (1) Alcohol dependence with uncomplicated withdrawal Current Visit: Yes Status: Acute (2) Opioid dependence with withdrawal Current Visit: Yes Status: Acute (3) Nicotine dependence Current Visit: Yes Status: Acute Qualifiers: Nicotine product type: cigarettes Substance use status: in withdrawal Qualified Code(s): F17.213 - Nicotine dependence, cigarettes, with withdrawal (4) HTN (hypertension) Current Visit: Yes Status: Chronic Qualifiers: Hypertension type: essential hypertension Qualified Code(s): I10 - Essential (primary) hypertension - AMA Did Patient Leave Against Medical Advice: Yes
[2018-08-06] MEDS: THIAMINE HCL 100 MG TABLET (FP) PO SCH (22:31)
[2018-08-07] MEDS ORDERED: METHADONE HCL 5 MG TABLET (FOR DETOX USE ONLY) PO SCH (06:00)
[2018-08-07 08:02] VITALS: BP 105/63; PULSE 62; TEMP 98.1
[2018-08-07] MEDS: NICOTINE POLACRILEX 2 MG GUM BC PRN (10:31)
[2018-08-07] MEDS: PRENATAL VITAMINS W/ FOLIC ACID TABLET (FP) PO SCH (10:31)
--- NOTE | 2018-08-07 12:56 | DS ---
[facility] Detox Discharge Summary Admission Date: 08/02/18 Discharge Date: 08/07/18 - History Present History: Alcohol Dependence, Opioid Dependence Additional Comments: 52 years old male admitted on 08/02/18 for alcohol and opiate withdrawal sx completed detox regimen tolerated well denies withdrawal sx alert oriented x 3 no acute distress aftercare revelation - Physical Exam Results Vital Signs: Vital Signs Temperature 98.1 F 08/07/18 08:02 Pulse Rate 62 08/07/18 08:02 Respiratory Rate 20 08/07/18 08:02 Blood Pressure 105/63 08/07/18 08:02 O2 Sat by Pulse Oximetry (%) Pertinent Admission Physical Exam Findings: alcohol and opaite withdrawal st Vital Signs Temperature 98.1 F 08/07/18 08:02 Pulse Rate 62 08/07/18 08:02 Respiratory Rate 20 08/07/18 08:02 Blood Pressure 105/63 08/07/18 08:02 O2 Sat by Pulse Oximetry (%) Laboratory Last Values WBC 6.1 K/mm3 (4.0-10.0) 08/03/18 08:00 RBC 4.31 M/mm3 (4.00-5.60) 08/03/18 08:00 Hgb 13.1 GM/dL (11.7-16.9) 08/03/18 08:00 Hct 38.4 % (35.4-49) 08/03/18 08:00 MCV 89.0 fl (80-96) 08/03/18 08:00 MCH 30.3 pg (25.7-33.7) 08/03/18 08:00 MCHC 34.0 g/dl (32.0-35.9) 08/03/18 08:00 RDW 15.0 % (11.9-15.9) D 08/03/18 08:00 Plt Count 147 K/MM3 (134-434) D 08/03/18 08:00 MPV 11.0 fl (7.5-11.1) D 08/03/18 08:00 Sodium 143 mmol/L (136-145) 08/03/18 08:00 Potassium 4.2 mmol/L (3.5-5.1) 08/03/18 08:00 Chloride 106 mmol/L (98-107) 08/03/18 08:00 Carbon Dioxide 27 mmol/L (21-32) 08/03/18 08:00 Anion Gap 10 MMOL/L (8-16) 08/03/18 08:00 BUN 16 mg/dL (7-18) 08/03/18 08:00 Creatinine 0.9 mg/dL (0.55-1.3) 08/03/18 08:00 Creat Clearance w eGFR > 60 (>60) 08/03/18 08:00 Random Glucose 95 mg/dL (74-106) 08/03/18 08:00 Calcium 8.5 mg/dL (8.5-10.1) 08/03/18 08:00 Total Bilirubin 0.3 mg/dL (0.2-1) 08/03/18 08:00 AST 14 U/L (15-37) L 08/03/18 08:00 ALT 22 U/L (13-61) 08/03/18 08:00 Alkaline Phosphatase 51 U/L (45-117) 08/03/18 08:00 Total Protein 6.3 g/dl (6.4-8.2) L 08/03/18 08:00 Albumin 3.4 g/dl (3.4-5.0) 08/03/18 08:00 Urine Color Yellow 08/02/18 21: Urine Appearance Turbid 08/02/18 21: Urine pH 5.0 (5.0-8.0) 08/02/18 21:31 Ur Specific [place] 1.030 (1.010-1.035) 08/02/18 21:31 Urine Protein Negative (NEGATIVE) 08/02/18 21: Urine Glucose (UA) Negative (NEGATIVE) 08/02/18 21:31 Urine Ketones Negative (NEGATIVE) 08/02/18 21: Urine Blood Negative (NEGATIVE) 08/02/18 21: Urine Nitrite Negative (NEGATIVE) 08/02/18 21: Urine Bilirubin Negative (<2.0 mg/dL) 08/02/18 21: Urine Urobilinogen 2.0 mg/dL (0.2-1.0) 08/02/18 21:31 Ur Leukocyte Esterase Negative (NEGATIVE) 08/02/18 21: RPR Titer Nonreactive (NONREACTIVE) 08/03/18 08:00 lab noted - Treatment Hospital Course: Detox Protocol Followed, Detoxed Safely, Responded well, Discharged Condition Good, Rehab Referral Accepted Patient has Accepted a Rehab Referral to: kathya - Medication Discharge Medications: Ambulatory Orders NK [No Known Home Medication] 08/02/18 - Diagnosis (1) Alcohol dependence with uncomplicated withdrawal Status: Acute (2) Opioid dependence with withdrawal Status: Acute (3) Nicotine dependence Status: Acute Qualifiers: Nicotine product type: cigarettes Substance use status: in withdrawal Qualified Code(s): F17.213 - Nicotine dependence, cigarettes, with withdrawal (4) HTN (hypertension) Status: Chronic Qualifiers: Hypertension type: essential hypertension Qualified Code(s): I10 - Essential (primary) hypertension - AMA Did Patient Leave Against Medical Advice: No
== END 2018-08-07 12:28 | disposition other institution (70) | DRG 773 ==
LOC: YASAS 13:24 → Y6N 17:14
PROC: HZ2ZZZZ Detoxification Services for Substance Abuse Treatment (ICD-10-PCS; principal; 2018-08-02)
PROC: HZ2ZZZZ Detoxification Services for Substance Abuse Treatment (ICD-10-PCS; 2018-08-02)
DX: F11.23 Opioid dependence with withdrawal (principal); F10.230 Alcohol dependence with withdrawal, uncomplicated; F14.20 Cocaine dependence, uncomplicated; F12.10 Cannabis abuse, uncomplicated; F17.213 Nicotine dependence, cigarettes, with withdrawal; F19.24 Other psychoactive substance dependence with psychoactive substance-induced mood disorder; I10 Essential (primary) hypertension; H54.40 Blindness, one eye, unspecified eye; E66.9 Obesity, unspecified; Z68.30 Body mass index [BMI] 30.0-30.9, adult; Z91.19 Patient's noncompliance with other medical treatment and regimen; Z91.5 Personal history of self-harm
CPT/HCPCS: 36415; 80053; 81003; 85027; 86593; 93005; 93010

== ENCOUNTER 2018-08-07 12:34 | Inpatient (IN) | payer OTHER ==
--- NOTE | 2018-08-07 12:51 | HP ---
[facility] Rehab Assess/Revision - Admission History Admitted to Rehab from: [facility] Date of Admission to Rehab: 08/07/18 - Findings Detox History & Physical reviewed: Yes Concur with findings: Yes Comments/Additional Findings: trasnferred from detox to rehab admission as per protocol Inpatient Rehab Admission - Initial Determination Are CD services needed?: Yes Free of communicable disease: Yes Not in need of hospitalization: Yes - Rehab Admission Criteria Previous failed treatment: Yes Poor recovery environment: Yes Comorbidities: Yes Lacks judgement: No Patient is meeting Inpatient Rehab admission criteria:: Yes
[2018-08-07] MEDS ORDERED: MAG HYDROX/AL HYDROX/SIMETH 30 ML UNIT-DOSE CUP PO PRN (12:52)
[2018-08-07] MEDS ORDERED: guaiFENesin/D-METHORPHAN HB 10 ML UNIT-DOSE CUPS PO PRN (12:52)
[2018-08-07] MEDS ORDERED: MAGNESIUM CITRATE 300 ML BOTTLE PO PRN (12:52)
[2018-08-07] MEDS ORDERED: NICOTINE POLACRILEX 2 MG GUM BUC PRN (12:52)
[2018-08-07] MEDS ORDERED: NICOTINE 14 MG/24 HOURS TOPICAL PATCH TD PRN (12:52)
[2018-08-07] MEDS ORDERED: ACETAMINOPHEN 325 MG TABLET (FP) PO PRN (12:52)
[2018-08-07] MEDS ORDERED: P-EPHED 60MG/TRIPROLIDI 2.5MG TABLET PO PRN (12:52)
[2018-08-07] MEDS ORDERED: MAGNESIUM HYDROX 2400MG/30ML ORAL SUSPENSION 30 ML CUP PO PRN (12:52)
[2018-08-07] MEDS ORDERED: MENTHOL/PHENOL 1 EACH UD MM PRN (12:52)
[2018-08-07] MEDS ORDERED: LOPERAMIDE HCL 2 MG CAPSULE PO PRN (12:52)
[2018-08-07] MEDS ORDERED: IBUPROFEN 400 MG TABLET (FP) PO PRN (12:52)
[2018-08-07 13:40] VITALS: BMI 32.5
[2018-08-07] MEDS: THIAMINE HCL 100 MG TABLET (FP) PO SCH (21:56)
[2018-08-07] MEDS ORDERED: MELATONIN 5 MG TABLETS PO PRN (22:00)
[2018-08-08] MEDS ORDERED: PRENATAL VITAMINS W/ FOLIC ACID TABLET (FP) PO SCH (10:00)
[2018-08-08] MEDS ORDERED: CYCLOBENZAPRINE HCL 10 MG TABLET (FP) PO PRN (13:24)
--- NOTE | 2018-08-08 13:25 | PN ---
[facility] Progress Note Note: Vital Signs Temperature 97.4 F L 08/08/18 06:58 Pulse Rate 74 08/08/18 09:30 Respiratory Rate 18 08/08/18 09:30 Blood Pressure 126/70 08/08/18 09:30 O2 Sat by Pulse Oximetry (%) Patient c/o of cold sweats chills, completed opid detox at [facility]. Reports was in [facility] at [facility] which also has a suboxone program Patient currently stable, no distress, anxious ambulatory skin tact mild protracted withdrawal sx Plan: felxeril prn vistrail prn increase fluids patient to follow up with counselor to link to [facility] upon d/c
[2018-08-08] MEDS: hydrOXYzine PAMOATE 50 MG CAPSULE (FP) PO PRN (14:38)
[2018-08-08] MEDS: THIAMINE HCL 100 MG TABLET (FP) PO SCH (22:47)
[2018-08-09] MEDS: hydrOXYzine PAMOATE 50 MG CAPSULE (FP) PO PRN (02:24)
[2018-08-09 07:08] VITALS: BP 122/73; PULSE 72; TEMP 97.8
--- NOTE | 2018-08-09 08:56 | PN ---
[facility] Progress Note Note: Patient decided to sign out today AMA despite strong recommendations to complete stabilization.He will address his issues on outpatient basis.See staff noted for details.
== END 2018-08-09 09:30 | disposition left against medical advice (07) | DRG 770 ==
LOC: YASAS 12:34 → Y3W 12:37
PROVIDERS: ADMIT Psychiatry & Neurology Psychiatry; ATTEND Psychiatry & Neurology Psychiatry
PROC: HZ42ZZZ Group Counseling for Substance Abuse Treatment, Cognitive-Behavioral (ICD-10-PCS; principal; 2018-08-07)
DX: F11.20 Opioid dependence, uncomplicated (principal); F10.20 Alcohol dependence, uncomplicated; F17.210 Nicotine dependence, cigarettes, uncomplicated; I10 Essential (primary) hypertension; M54.5 Low back pain

== ENCOUNTER 2018-11-03 08:43 | Inpatient (IN) | payer OTHER ==
[2018-11-03 10:23] VITALS: BMI 30.4
--- NOTE | 2018-11-03 10:36 | HP ---
COWS - Scale Resting Pulse: 1= [place] 81-100 Sweatin= Chills/Flushing Restless Observation: 3= Extraneous Movement Pupil Size: 1= Pupils >than Normal Bone or Joint Aches: 2= Severe Diffuse Aches Runny Nose/ Eye Tearin= Runny Nose/Eyes GI Upset > 30mins: 3= Vomiting/Diarrhea Tremor Observation: 2= Slight Tremor Visible Yawning Observation: 2= >3x During Session Anxiety or Irritability: 2=Irritable/Anxious Goose Flesh Skin: 0=Smooth Skin COWS Score: 19 CIWA Score - Admission Criteria [facility]ASAS Guidelines: Admission for Medically Managed Detox: Requires at least one of the followin. CIWA greater than 12 2. Seizures within the past 24 hours 3. Delirium tremens within the past 24 hours 4. Hallucinations within the past 24 hours 5. Acute intervention needed for co occurring medical disorder 6. Acute intervention needed for co occurring psychiatric disorder 7. Severe withdrawal that cannot be handled at a lower level of care (continued vomiting, continued diarrhea, abnormal vital signs) requiring intravenous medication and/or fluids 8. Admission ROS [facility] - [facility] Chief Complaint: i needhelp to stop using heroin and cocaine Allergies/Adverse Reactions: Allergies Allergy/AdvReac Type Severity Reaction Status Date / Time No Known Allergies Allergy Verified 11/03/18 11:17 History of Present Illness: this 53 years old male with heroin and cocaine dependence,seeking detox, withdrawal symptom,seen in [place] last night, last detox [facility] 08/02/18 to 08/07/18,rehab 08/07/18 to 08/09/18 hypertension no med hepatitis c treated longest period of sobriety 4 years Exam Limitations: No Limitations - Ebola screening Have you traveled outside of the country in the last 21 days: No (N) Have you had contact with anyone from an Ebola affected area: No Have you been sick,other than usual withdrawal symptoms: No Do you have a fever: No - Review of Systems Constitutional: Chills, Loss of Appetite, Malaise, Night Sweats, Changes in sleep, Weakness, Unintentional Wgt. Loss EENT: reports: Tearing, Nose Congestion Respiratory: reports: No Symptoms reported Cardiac: reports: No Symptoms Reported GI: reports: Diarrhea, Nausea, Vomiting, Abdominal cramping : reports: No Symptoms Reported Musculoskeletal: reports: Back Pain, Joint Pain, Muscle Pain Integumentary: reports: Dryness Neuro: reports: Headache, Tremors Endocrine: reports: No Symptoms Reported Hematology: reports: No Symptoms Reported Psychiatric: reports: No Sypmtoms Reported, Judgement Intact, Mood/Affect Appropiate, Orientated x3 Other Systems: Reviewed and Negative Patient History - Patient Medical History Hx Anemia: No Hx Asthma: No Hx Chronic Obstructive Pulmonary Disease (COPD): No Hx Cancer: No Hx Cardiac Disorders: No Hx Congestive Heart Failure: No Hx Hypertension: Yes (nomed) Hx Hypercholesterolemia: No Hx Pacemaker: No HX Cerebrovascular Accident: No Hx Seizures: No Hx Dementia: No Hx Diabetes: No Hx Gastrointestinal Disorders: No Hx Liver Disease: No Hx Genitourinary Disorders: No Hx Sexually Transmitted Disorders: No Hx Renal Disease (ESRD): No Hx Thyroid Disease: No Hx Human Immunodeficiency Virus (HIV): No (2018 negative) Hx Hepatitis C: No Hx Depression: No Hx Suicide Attempt: No Hx Bipolar Disorder: Yes (no med) Hx Schizophrenia: Yes (no med) Other Medical History: no suicidal,no homicidal - Patient Surgical History Past Surgical History: No Hx Neurologic Surgery: No Hx Cataract Extraction: No Hx Cardiac Surgery: No Hx Lung Surgery: No Hx Breast Surgery: No Hx Breast Biopsy: No Hx Abdominal Surgery: No Hx Appendectomy: No Hx Cholecystectomy: No Hx Genitourinary Surgery: No Hx Section: No Hx Orthopedic Surgery: No Anesthesia Reaction: No - PPD History Previous Implant?: Yes Documented Results: Negative w/proof Date: 06/09/18 Results: 0 mm PPD to be Administered?: No - Smoking Cessation Smoking history: Never smoked Have you smoked in the past 12 months: No Hx Chewing Tobacco Use: No - Substance & Tx. History Hx Alcohol Use: No Substance Use Type: Cocaine, Heroin Hx Substance Use Treatment: Yes ([facility] 08/02/18 to 08/07/18,rehab 08/02/18 to 04/17) - Substances Abused Heroin Route: Injection Frequency: Daily Amount used: 6 bags Age of first use: 17 Date of Last Use: 11/02/18 Cocaine Route: Injection Frequency: Daily Amount used: 200$ Age of first use: 17 Date of Last Use: 11/02/18 Family Disease History - Family Disease History Family Disease History: Diabetes: Father (), Mother (), Sister ( two - living ), Heart Disease: Sister, Other: Father, Mother, Brother (six - living - healthy), Sister, Daughter ( in MVA) Admission Physical Exam [facility] - Vital Signs Vital Signs: Vital Signs - 24 hr 11/03/18 10:20 Temperature 98.6 F Pulse Rate 86 Respiratory 18 Rate Blood Pressure 118/67 - Physical General Appearance: Yes: Moderate Distress, Tremorous, Irritable, Sweating, Anxious HEENTM: Yes: Normal ENT Inspection, FELI, Pharynx Normal Respiratory: Yes: Lungs Clear, Normal Breath Sounds, No Respiratory Distress Neck: Yes: Within Normal Limits, Supple, Trachea in good position Breast: Yes: Within Normal Limits Cardiology: Yes: Within Normal Limits, Regular Rhythm, Regular Rate, S1, S2 Abdominal: Yes: Within Normal Limits, Normal Bowel Sounds, Non Tender, Soft Genitourinary: Yes: Within Normal Limits Back: Yes: Muscle Spasm Musculoskeletal: Yes: full range of Motion, Back pain, Muscle Pain Extremities: Yes: Normal Range of Motion, Non-Tender, Tremors Neurological: Yes: chuck splitter II-XII NML intact, Fully Oriented, Alert, Motor Strength 5/5 Integumentary: Yes: Dry, Track Tobias Lymphatic: Yes: Within Normal Limits - Diagnostic (1) Opioid dependence with withdrawal Current Visit: No Status: Acute (2) Insomnia Current Visit: No Status: Acute (3) Cocaine dependence Current Visit: No Status: Chronic Qualifiers: Substance use status: uncomplicated Qualified Code(s): F14.20 - Cocaine dependence, uncomplicated (4) HTN (hypertension) Current Visit: No Status: Chronic Qualifiers: Hypertension type: essential hypertension Qualified Code(s): I10 - Essential (primary) hypertension (5) Lower back pain Current Visit: No Status: Chronic Qualifiers: Chronicity: chronic (6) Weight loss Current Visit: Yes Status: Acute Cleared for Admission [facility] - Detox or Rehab [facility] Level of Care: Medically Managed Detox Regimen/Protocol: Methadone [facility] Breath Alcohol Content Breath Alcohol Content: 0 Urine Drug Screen - Results Drug Screen Negative: No Urine Drug Screen Results: THC-Marijuana, FREDDIE-Cocaine, OPI-Opiates, FEN-Fentanyl
[2018-11-03] MEDS ORDERED: MAGNESIUM HYDROX 2400MG/30ML ORAL SUSPENSION 30 ML CUP PO PRN (10:45)
[2018-11-03] MEDS ORDERED: MAG HYDROX/AL HYDROX/SIMETH 30 ML UNIT-DOSE CUP PO PRN (10:45)
[2018-11-03] MEDS ORDERED: IBUPROFEN 400 MG TABLET (FP) PO PRN (10:45)
[2018-11-03] MEDS ORDERED: P-EPHED 60MG/TRIPROLIDI 2.5MG TABLET PO PRN (10:45)
[2018-11-03] MEDS ORDERED: LOPERAMIDE HCL 2 MG CAPSULE PO PRN (10:45)
[2018-11-03] MEDS ORDERED: MAGNESIUM CITRATE 300 ML BOTTLE PO PRN (10:45)
[2018-11-03] MEDS ORDERED: MENTHOL/PHENOL 1 EACH UD MM PRN (10:45)
[2018-11-03] MEDS ORDERED: guaiFENesin/D-METHORPHAN HB 10 ML UNIT-DOSE CUPS PO PRN (10:45)
[2018-11-03] MEDS ORDERED: ACETAMINOPHEN 325 MG TABLET (FP) PO PRN (10:45)
[2018-11-03] MEDS ORDERED: METHADONE HCL 10 MG TABLET (FOR DETOX USE ONLY) PO ONE ×2 (12:00→23:00)
[2018-11-03] MEDS: CYCLOBENZAPRINE HCL 10 MG TABLET (FP) PO PRN (12:35)
[2018-11-03] MEDS: diazePAM 5 MG TABLET PO PRN ×2 (12:36→22:40)
[2018-11-03] MEDS ORDERED: MELATONIN 5 MG TABLETS PO PRN (22:00)
[2018-11-03] MEDS: THIAMINE HCL 100 MG TABLET (FP) PO SCH (22:38)
[2018-11-03] MEDS: cloNIDine HCL 0.1 MG TABLET PO SCH (22:38)
[2018-11-04] MEDS ORDERED: METHADONE HCL 10 MG TABLET (FOR DETOX USE ONLY) PO ONE (10:00)
[2018-11-04 10:07] LABS: HEMATOCRIT 37.4 % (35.4-49); MCH 30.4 pg (25.7-33.7); MCHC 34.7 g/dl (32.0-35.9); MEAN CELL VOLUME 87.6 fl (80-96); MEAN PLT VOLUME 10.1 fl (7.5-11.1); PLATELET COUNT 194 K/MM3 (134-434); RBC 4.27 M/mm3 (4.00-5.60); RDW 14.7 % (11.9-15.9); WHITE BLOOD COUNT 3.8 K/mm3 (4.0-10.0)
[2018-11-04 10:38] LABS: ALBUMIN 3.1 g/dl (3.4-5.0); ALK PHOS 57 U/L (45-117); ANION GAP 7 MMOL/L (8-16); BILIRUBIN,TOTAL 0.4 mg/dL (0.2-1); BLOOD UREA NITROGEN 16 mg/dL (7-18); CALCIUM 8.4 mg/dL (8.5-10.1); CHLORIDE 103 mmol/L (98-107); CO2 29 mmol/L (21-32); CREATININE 1.1 mg/dL (0.55-1.3); GLUCOSE,RANDOM 101 mg/dL (74-106); POTASSIUM 4.4 mmol/L (3.5-5.1); SGOT/AST 67 U/L (15-37); SGPT/ALT 73 U/L (13-61); SODIUM 138 mmol/L (136-145); TOT PROT 6.5 g/dl (6.4-8.2)
[2018-11-04] MEDS: PRENATAL VITAMINS W/ FOLIC ACID TABLET (FP) PO SCH (10:39)
[2018-11-04] MEDS: diazePAM 5 MG TABLET PO PRN ×2 (10:40→22:23)
[2018-11-04] MEDS: cloNIDine HCL 0.1 MG TABLET PO SCH ×2 (10:41→22:24)
--- NOTE | 2018-11-04 13:21 | PN ---
[facility] COWS - Scale Resting Pulse: 0= [place] 80 or Below Sweatin= Chills/Flushing Restless Observation: 1= Difficult to Sit Still Pupil Size: 0= Normal to Room Light Bone or Joint Aches: 2= Severe Diffuse Aches Runny Nose/ Eye Tearin= None GI Upset > 30mins: 2= Nausea/Diarrhea Tremor Observation of Outstretched Hands: 2= Slight Tremor Visible Yawning Observation: 0= None Anxiety or Irritability: 2=Irritable/Anxious Goose Flesh Skin: 3=Piloerection COWS Score: 13 [facility] Progress Note (SOAP) Subjective: Sweating, Tremors, Diarrhea, Body Aches. Objective: PATIENT A & O X 3. IN NO ACUTE DISTRESS. 11/04/18 13:19 Vital Signs Temperature 97.5 F L 11/04/18 13:10 Pulse Rate 67 11/04/18 13:10 Respiratory Rate 18 11/04/18 13:10 Blood Pressure 115/54 L 11/04/18 13:10 O2 Sat by Pulse Oximetry (%) Laboratory Tests 11/04/18 11/04/18 11/04/18 07:00 07:00 07:00 WBC 3.8 L RBC 4.27 Hgb 13.0 Hct 37.4 MCV 87.6 MCH 30.4 MCHC 34.7 RDW 14.7 Plt Count 194 D MPV 10.1 Sodium 138 Potassium 4.4 Chloride 103 Carbon Dioxide 29 Anion Gap 7 L BUN 16 Creatinine 1.1 Creat Clearance w eGFR > 60 Random Glucose 101 Calcium 8.4 L Total Bilirubin 0.4 AST 67 H ALT 73 H Alkaline Phosphatase 57 Total Protein 6.5 Albumin 3.1 L RPR Titer Nonreactive LABS NOTED. Assessment: 11/04/18 13:20 WITHDRAWAL SYMPTOMS. Plan: CONTINUE DETOX. INCREASE DAILY PO FLUID INTAKE. PRN IMMODIUM FOR DIARRHEA.
[2018-11-04] MEDS: THIAMINE HCL 100 MG TABLET (FP) PO SCH (22:23)
--- NOTE | 2018-11-05 09:28 | PN ---
S CIWA - CIWA Score Nausea/Vomitin Muscle Tremors: 2 Anxiety: 2 Agitation: 2 Paroxysmal Sweats: 1-Minimal Palms Moist Orientation: 0-Oriented Tacttile Disturbances: 1-Very Mild Itch/Numbness Auditory Disturbances: 1-Very Mild Visual Disturbances: 0-None Headache: 2-Mild CIWA-Ar Total Score: 13 [facility] COWS - Scale Resting Pulse: 0= [place] 80 or Below Sweatin= Chills/Flushing Restless Observation: 3= Extraneous Movement Pupil Size: 1= Pupils >than Normal Bone or Joint Aches: 2= Severe Diffuse Aches Runny Nose/ Eye Tearin= Nasal Congestion GI Upset > 30mins: 2= Nausea/Diarrhea Tremor Observation of Outstretched Hands: 2= Slight Tremor Visible Yawning Observation: 1= 1-2x During Session Anxiety or Irritability: 2=Irritable/Anxious Goose Flesh Skin: 0=Smooth Skin COWS Score: 15 [facility] Progress Note (SOAP) Subjective: alert,irritable,anxious,interrupted sleep,tremor,pain in the body and back Objective: 11/05/18 09:26 Vital Signs Temperature 98.2 F 11/05/18 09:15 Pulse Rate 59 L 11/05/18 09:15 Respiratory Rate 18 11/05/18 09:15 Blood Pressure 101/52 L 11/05/18 09:15 O2 Sat by Pulse Oximetry (%) Laboratory Last Values WBC 3.8 K/mm3 (4.0-10.0) L 11/04/18 07:00 RBC 4.27 M/mm3 (4.00-5.60) 11/04/18 07:00 Hgb 13.0 GM/dL (11.7-16.9) 11/04/18 07:00 Hct 37.4 % (35.4-49) 11/04/18 07:00 MCV 87.6 fl (80-96) 11/04/18 07:00 MCH 30.4 pg (25.7-33.7) 11/04/18 07:00 MCHC 34.7 g/dl (32.0-35.9) 11/04/18 07:00 RDW 14.7 % (11.9-15.9) 11/04/18 07:00 Plt Count 194 K/MM3 (134-434) D 11/04/18 07:00 MPV 10.1 fl (7.5-11.1) 11/04/18 07:00 Sodium 138 mmol/L (136-145) 11/04/18 07:00 Potassium 4.4 mmol/L (3.5-5.1) 11/04/18 07:00 Chloride 103 mmol/L (98-107) 11/04/18 07:00 Carbon Dioxide 29 mmol/L (21-32) 11/04/18 07:00 Anion Gap 7 MMOL/L (8-16) L 11/04/18 07:00 BUN 16 mg/dL (7-18) 11/04/18 07:00 Creatinine 1.1 mg/dL (0.55-1.3) 11/04/18 07:00 Creat Clearance w eGFR > 60 (>60) 11/04/18 07:00 Random Glucose 101 mg/dL (74-106) 11/04/18 07:00 Calcium 8.4 mg/dL (8.5-10.1) L 11/04/18 07:00 Total Bilirubin 0.4 mg/dL (0.2-1) 11/04/18 07:00 AST 67 U/L (15-37) H 11/04/18 07:00 ALT 73 U/L (13-61) H 11/04/18 07:00 Alkaline Phosphatase 57 U/L (45-117) 11/04/18 07:00 Total Protein 6.5 g/dl (6.4-8.2) 11/04/18 07:00 Albumin 3.1 g/dl (3.4-5.0) L 11/04/18 07:00 RPR Titer Nonreactive (NONREACTIVE) 11/04/18 07:00 Assessment: 11/05/18 09:26 withdrawal symptom Plan: continue detox
[2018-11-05] MEDS ORDERED: METHADONE HCL 5 MG TABLET (FOR DETOX USE ONLY) PO ONE (10:00)
[2018-11-05] MEDS: cloNIDine HCL 0.1 MG TABLET PO SCH ×2 (10:25→22:51)
[2018-11-05] MEDS: PRENATAL VITAMINS W/ FOLIC ACID TABLET (FP) PO SCH (10:25)
[2018-11-05] MEDS: THIAMINE HCL 100 MG TABLET (FP) PO SCH (22:48)
[2018-11-05] MEDS: diazePAM 5 MG TABLET PO PRN (22:49)
[2018-11-06] MEDS ORDERED: METHADONE HCL 5 MG TABLET (FOR DETOX USE ONLY) PO ONE (10:00)
[2018-11-06] MEDS: CYCLOBENZAPRINE HCL 10 MG TABLET (FP) PO PRN (10:41)
[2018-11-06] MEDS: cloNIDine HCL 0.1 MG TABLET PO SCH ×3 (10:41→23:10)
[2018-11-06] MEDS: diazePAM 5 MG TABLET PO PRN (10:41)
[2018-11-06] MEDS: PRENATAL VITAMINS W/ FOLIC ACID TABLET (FP) PO SCH (10:41)
--- NOTE | 2018-11-06 16:55 | PN ---
[facility] Progress Note (SOAP) Subjective: Body Aches, Sweating, Tremors. Objective: PATIENT A & O X 2 (UNCERTAIN ABOUT CURRENT DAY / DATE). IN NO ACUTE DISTRESS. 11/06/18 16:53 Vital Signs Temperature 98.0 F 11/06/18 12:49 Pulse Rate 59 L 11/06/18 12:49 Respiratory Rate 18 11/06/18 12:49 Blood Pressure 105/52 L 11/06/18 12:49 O2 Sat by Pulse Oximetry (%) Laboratory Tests 11/04/18 11/04/18 11/04/18 07:00 07:00 07:00 WBC 3.8 L RBC 4.27 Hgb 13.0 Hct 37.4 MCV 87.6 MCH 30.4 MCHC 34.7 RDW 14.7 Plt Count 194 D MPV 10.1 Sodium 138 Potassium 4.4 Chloride 103 Carbon Dioxide 29 Anion Gap 7 L BUN 16 Creatinine 1.1 Creat Clearance w eGFR > 60 Random Glucose 101 Calcium 8.4 L Total Bilirubin 0.4 AST 67 H ALT 73 H Alkaline Phosphatase 57 Total Protein 6.5 Albumin 3.1 L RPR Titer Nonreactive LABS NOTED. Assessment: 11/06/18 16:54 WITHDRAWAL SYMPTOMS. Plan: CONTINUE DETOX. INCREASE DAILY PO FLUID INTAKE.
[2018-11-06] MEDS: hydrOXYzine PAMOATE 50 MG CAPSULE (FP) PO PRN (17:26)
[2018-11-06] MEDS: THIAMINE HCL 100 MG TABLET (FP) PO SCH (23:10)
[2018-11-07] MEDS ORDERED: METHADONE HCL 10 MG TABLET (FOR DETOX USE ONLY) PO ONE (10:00)
[2018-11-07] MEDS: cloNIDine HCL 0.1 MG TABLET PO SCH ×2 (10:56→22:16)
[2018-11-07] MEDS: PRENATAL VITAMINS W/ FOLIC ACID TABLET (FP) PO SCH (10:56)
[2018-11-07] MEDS ORDERED: TRIMETHOBENZAMIDE HCL 200MG/2ML INJ IM PRN (13:09)
--- NOTE | 2018-11-07 14:58 | PN ---
[facility] Progress Note (SOAP) Subjective: Body Aches, Vomiting, diarrhea. Objective: PATIENT A & O X 3, OBSERVED AMBULATING ON UNIT. IN NO ACUTE DISTRESS. 11/07/18 14:56 Vital Signs Temperature 98.2 F 11/07/18 13:52 Pulse Rate 69 11/07/18 13:52 Respiratory Rate 16 11/07/18 13:52 Blood Pressure 101/55 L 11/07/18 13:52 O2 Sat by Pulse Oximetry (%) Laboratory Tests 11/04/18 11/04/18 11/04/18 07:00 07:00 07:00 WBC 3.8 L RBC 4.27 Hgb 13.0 Hct 37.4 MCV 87.6 MCH 30.4 MCHC 34.7 RDW 14.7 Plt Count 194 D MPV 10.1 Sodium 138 Potassium 4.4 Chloride 103 Carbon Dioxide 29 Anion Gap 7 L BUN 16 Creatinine 1.1 Creat Clearance w eGFR > 60 Random Glucose 101 Calcium 8.4 L Total Bilirubin 0.4 AST 67 H ALT 73 H Alkaline Phosphatase 57 Total Protein 6.5 Albumin 3.1 L RPR Titer Nonreactive LABS NOTED. Assessment: 11/07/18 14:56 WITHDRAWAL SYMPTOMS. Plan: CONTINUE DETOX. INCREASE DAILY PO FLUID INTAKE. PRN IMMODIUM PO FOR DIARRHEA. PRN TIGAN IM FOR VOMITING. PATIENT SCHEDULED FOR D/C TOMORROW.
[2018-11-07] MEDS: CYCLOBENZAPRINE HCL 10 MG TABLET (FP) PO PRN (22:16)
[2018-11-07] MEDS: hydrOXYzine PAMOATE 50 MG CAPSULE (FP) PO PRN (22:17)
[2018-11-07] MEDS: THIAMINE HCL 100 MG TABLET (FP) PO SCH (23:19)
[2018-11-08] MEDS ORDERED: METHADONE HCL 5 MG TABLET (FOR DETOX USE ONLY) PO ONE (06:00)
[2018-11-08 06:29] VITALS: PULSE 59
[2018-11-08 09:10] VITALS: BP 118/71; TEMP 98.4
--- NOTE | 2018-11-08 09:12 | DS ---
[facility] Detox Discharge Summary Admission Date: 11/03/18 Discharge Date: 11/08/18 - History Present History: Alcohol Dependence, Cannabis Dependence, Cocaine Dependence, Opioid Dependence - Physical Exam Results Vital Signs: Vital Signs Temperature 98.4 F 11/08/18 09:09 Pulse Rate 59 L 11/08/18 09:09 Respiratory Rate 18 11/08/18 09:09 Blood Pressure 118/71 11/08/18 09:09 O2 Sat by Pulse Oximetry (%) - Treatment Hospital Course: Detox Protocol Followed, Detoxed Safely, Responded well, Discharged Condition Good, Rehab Referral Accepted - Medication Discharge Medications: Ambulatory Orders NK [No Known Home Medication] 08/02/18 - Diagnosis (1) Weight loss Current Visit: Yes Status: Acute (2) Alcohol dependence with uncomplicated withdrawal Current Visit: Yes Status: Chronic (3) Insomnia Current Visit: No Status: Acute (4) Nicotine dependence Current Visit: Yes Status: Chronic Qualifiers: Nicotine product type: cigarettes Substance use status: uncomplicated Qualified Code(s): F17.210 - Nicotine dependence, cigarettes, uncomplicated (5) Non-compliant patient Current Visit: No Status: Acute (6) Opioid dependence with withdrawal Current Visit: Yes Status: Chronic (7) Post traumatic stress disorder (PTSD) Current Visit: No Status: Acute (8) Substance induced mood disorder Current Visit: No Status: Acute (9) Cannabis abuse, uncomplicated Current Visit: Yes Status: Chronic (10) Cocaine dependence Current Visit: Yes Status: Chronic Qualifiers: Substance use status: uncomplicated Qualified Code(s): F14.20 - Cocaine dependence, uncomplicated (11) Corneal abnormality Current Visit: No Status: Chronic (12) HTN (hypertension) Current Visit: Yes Status: Chronic Qualifiers: Hypertension type: essential hypertension Qualified Code(s): I10 - Essential (primary) hypertension (13) Lower back pain Current Visit: Yes Status: Chronic Qualifiers: Chronicity: chronic Back pain laterality: unspecified (14) Obesity (BMI 30.0-34.9) Current Visit: No Status: Chronic - AMA Did Patient Leave Against Medical Advice: No (referred to [facility] rehab)
== END 2018-11-08 10:50 | disposition home or self-care (01) | DRG 773 ==
LOC: YASAS 08:43 → Y6N 11:51
PROVIDERS: ADMIT Neuromusculoskeletal Medicine & OMM; ATTEND Neuromusculoskeletal Medicine & OMM
PROC: HZ2ZZZZ Detoxification Services for Substance Abuse Treatment (ICD-10-PCS; principal; 2018-11-03)
DX: F11.23 Opioid dependence with withdrawal (principal); F10.230 Alcohol dependence with withdrawal, uncomplicated; F14.20 Cocaine dependence, uncomplicated; F12.10 Cannabis abuse, uncomplicated; F17.210 Nicotine dependence, cigarettes, uncomplicated; F43.10 Post-traumatic stress disorder, unspecified; F19.24 Other psychoactive substance dependence with psychoactive substance-induced mood disorder; I10 Essential (primary) hypertension; G47.00 Insomnia, unspecified; M54.5 Low back pain; G89.29 Other chronic pain; H18.899 Other specified disorders of cornea, unspecified eye; E66.9 Obesity, unspecified; Z68.30 Body mass index [BMI] 30.0-30.9, adult; Z91.19 Patient's noncompliance with other medical treatment and regimen
CPT/HCPCS: 36415; 80053; 85027; 86593; J0735

== ENCOUNTER 2019-03-30 14:33 | Inpatient (IN) | payer OTHER ==
[2019-03-30 15:40] VITALS: BMI 29.5
--- NOTE | 2019-03-30 19:59 | HP ---
COWS - Scale Resting Pulse: 0= [place] 80 or Below Sweatin=Flushed/Facial Moisture Restless Observation: 1= Difficult to Sit Still Pupil Size: 1= Pupils >than Normal Bone or Joint Aches: 4=Acute Joint/Muscle Pain Runny Nose/ Eye Tearin= Runny Nose/Eyes GI Upset > 30mins: 2= Nausea/Diarrhea (diarrhea) Tremor Observation: 2= Slight Tremor Visible Yawning Observation: 1= 1-2x During Session Anxiety or Irritability: 4=Extreme Anxiety Goose Flesh Skin: 0=Smooth Skin COWS Score: 19 CIWA Score Nausea/Vomitin-Mild Nausea/No Vomiting Muscle Tremors: 4-Moderate,w/Arms Extend Anxiety: 4-Mod. Anxious/Guarded Agitation: 4-Moderately Restless Paroxysmal Sweats: 3 Orientation: 0-Oriented Tacttile Disturbances: 0-None Auditory Disturbances: 0-None Visual Disturbances: 0-None Headache: 4-Moderately Severe CIWA-Ar Total Score: 20 - Admission Criteria OASAS Guidelines: Admission for Medically Managed Detox: Requires at least one of the followin. CIWA greater than 12 2. Seizures within the past 24 hours 3. Delirium tremens within the past 24 hours 4. Hallucinations within the past 24 hours 5. Acute intervention needed for co occurring medical disorder 6. Acute intervention needed for co occurring psychiatric disorder 7. Severe withdrawal that cannot be handled at a lower level of care (continued vomiting, continued diarrhea, abnormal vital signs) requiring intravenous medication and/or fluids 8. Admission ROS [facility] Chief Complaint: Heroin and alcohol withdrawal symptoms Allergies/Adverse Reactions: Allergies Allergy/AdvReac Type Severity Reaction Status Date / Time No Known Allergies Allergy Verified 03/30/19 15:36 History of Present Illness: 53 years old male with a long history of alcohol and Heroin dependence is seeking admission to detox. Patient has been in previous detox multiple times and reports 3 years of sobriety. He has history of hypertension, depression and anxiety. He denies suicide attempt and suicidal ideation at this time. Exam Limitations: No Limitations - Ebola screening Have you traveled outside of the country in the last 21 days: No (N) Have you had contact with anyone from an Ebola affected area: No Do you have a fever: No - Review of Systems Constitutional: Chills, Loss of Appetite, Malaise, Night Sweats, Changes in sleep, Weakness EENT: reports: Nose Congestion Respiratory: reports: No Symptoms reported Cardiac: reports: No Symptoms Reported GI: reports: Diarrhea, Poor Appetite, Poor Fluid Intake, Abdominal cramping : reports: No Symptoms Reported Musculoskeletal: reports: Back Pain, Joint Pain, Muscle Pain Integumentary: reports: Dryness, Flushing Neuro: reports: Headache, Tremors Endocrine: reports: No Symptoms Reported Hematology: reports: No Symptoms Reported Psychiatric: reports: Anxious, Depressed Other Systems: Reviewed and Negative Patient History - Patient Medical History Hx Anemia: No Hx Asthma: No Hx Chronic Obstructive Pulmonary Disease (COPD): No Hx Cancer: No Hx Cardiac Disorders: No Hx Congestive Heart Failure: No Hx Hypertension: Yes (Not on medication) Hx Hypercholesterolemia: No Hx Pacemaker: No HX Cerebrovascular Accident: No Hx Seizures: No Hx Dementia: No Hx Diabetes: No Hx Gastrointestinal Disorders: No Hx Liver Disease: No Hx Genitourinary Disorders: No Hx Sexually Transmitted Disorders: No Hx Renal Disease (ESRD): No Hx Thyroid Disease: No Hx Human Immunodeficiency Virus (HIV): No (Negative 2017) Hx Hepatitis C: No Hx Depression: No Hx Suicide Attempt: No Hx Bipolar Disorder: Yes (Not on medicatyion) Hx Schizophrenia: Yes (Not on medication) Other Medical History: Anxiety - Not on medication - Patient Surgical History Past Surgical History: No Hx Neurologic Surgery: No Hx Cataract Extraction: No Hx Cardiac Surgery: No Hx Lung Surgery: No Hx Abdominal Surgery: No Hx Appendectomy: No Hx Cholecystectomy: No Hx Genitourinary Surgery: No Hx Section: No Hx Orthopedic Surgery: No Anesthesia Reaction: No - PPD History Previous Implant?: Yes Documented Results: Negative w/proof Implanted On Prior [facility] Admission?: Yes Date: 06/09/18 Results: 0 mm PPD to be Administered?: No - Reproductive History Patient is a Female of Child Bearing Age (11 -55 yrs old): No (male) - Smoking Cessation Smoking history: Current every day smoker Have you smoked in the past 12 months: Yes Aproximately how many cigarettes per day: 5 Hx Chewing Tobacco Use: No Initiated information on smoking cessation: Yes 'Breaking Loose' booklet given: 03/30/19 - Substance & Tx. History Hx Alcohol Use: Yes Hx Substance Use: Yes Substance Use Type: Alcohol, Cocaine, Heroin, Marijuana, Opiates Hx Substance Use Treatment: Yes ([facility]) - Substances abused Alcohol Substance route: Oral Frequency: Daily Amount used: vodka- 3 pts Age of first use: 19 Date of last use: 03/29/19 Heroin Substance route: Inhalation Frequency: Daily Amount used: 7 bags Age of first use: 23 Date of last use: 03/29/19 Crack Substance route: Smoking Frequency: Daily Amount used: $200 Age of first use: 22 Date of last use: 03/29/19 Marijuana/Hashish Substance route: Smoking Frequency: Daily Amount used: $5 Age of first use: 19 Date of last use: 03/29/19 Family Disease History - Family Disease History Family Disease History: Diabetes: Father (), Mother (), Sister ( two - living ), Heart Disease: Sister, Other: Father, Mother, Brother (six - living - healthy), Sister, Daughter ( in MVA) Admission Physical Exam [facility] - Vital Signs Vital Signs: Vital Signs - 24 hr 03/30/19 03/30/19 15:36 18:43 Temperature 97.6 F 97.6 F Pulse Rate 59 L 59 L Respiratory 18 18 Rate Blood Pressure 127/85 127/85 - Physical General Appearance: Yes: Moderate Distress, Tremorous, Irritable, Anxious HEENTM: Yes: Within Normal Limits Respiratory: Yes: Lungs Clear, Normal Breath Sounds, No Respiratory Distress Neck: Yes: Supple Breast: Yes: Breast Exam Deferred Cardiology: Yes: Regular Rhythm, Regular Rate Abdominal: Yes: Normal Bowel Sounds Genitourinary: Yes: Within Normal Limits Back: Yes: Normal Inspection Musculoskeletal: Yes: Within Normal Limits Extremities: Yes: Tremors Neurological: Yes: Alert, Normal Mood/Affect Integumentary: Yes: Warm Lymphatic: Yes: Within Normal Limits Cleared for Admission [facility] - Detox or Rehab [facility] Level of Care: Medically Managed Detox Regimen/Protocol: Methadone/Librium Breathalyzer - Breathalyzer Breathalyzer: 0 Urine Drug Screen - Test Device Lot number: [id number] Expiration date: 11/28/20 - Control Is test valid?: Yes - Results Drug screen NEGATIVE: No Urine drug screen results: THC-Marijuana, FREDDIE-Cocaine, FEN-Fentanyl, MOP-Opiates , BZO-Benzodiazepines Inpatient Rehab Admission - Rehab Decision to Admit Inpatient rehab admission?: No
[2019-03-30] MEDS ORDERED: MENTHOL/PHENOL 1 EACH UD MM PRN (20:06)
[2019-03-30] MEDS ORDERED: NICOTINE POLACRILEX 2 MG GUM BUC PRN (20:06)
[2019-03-30] MEDS ORDERED: chlordiazePOXIDE HCL 25 MG CAPSULE PO PRN (20:06)
[2019-03-30] MEDS ORDERED: IBUPROFEN 400 MG TABLET (FP) PO PRN (20:06)
[2019-03-30] MEDS ORDERED: BISMUTH SUBSALICYLATE 524 MG/30 ML UD PO PRN (20:06)
[2019-03-30] MEDS ORDERED: MAGNESIUM HYDROX 2400MG/30ML ORAL SUSPENSION 30 ML CUP PO PRN (20:06)
[2019-03-30] MEDS ORDERED: MAGNESIUM CITRATE 300 ML BOTTLE PO PRN (20:06)
[2019-03-30] MEDS ORDERED: cloNIDine HCL 0.1 MG TABLET PO PRN (20:06)
[2019-03-30] MEDS ORDERED: hydrOXYzine PAMOATE 25 MG CAPSULE (FP) PO PRN (20:06)
[2019-03-30] MEDS ORDERED: MELATONIN 5 MG TABLETS PO PRN (20:06)
[2019-03-30] MEDS ORDERED: METHOCARBAMOL 500 MG TABLET PO PRN (20:06)
[2019-03-30] MEDS ORDERED: MAG HYDROX/AL HYDROX/SIMETH 30 ML UNIT-DOSE CUP PO PRN (20:06)
[2019-03-30] MEDS ORDERED: ACETAMINOPHEN 325 MG TABLET (FP) PO PRN ×2 (20:06)
[2019-03-30] MEDS ORDERED: THIAMINE HCL 100 MG TABLET (FP) PO SCH (22:00)
[2019-03-30] MEDS: chlordiazePOXIDE HCL 25 MG CAPSULE PO SCH (22:52)
[2019-03-30] MEDS ORDERED: METHADONE HCL 10 MG TABLET (FOR DETOX USE ONLY) PO ONE (23:00)
[2019-03-31] MEDS: chlordiazePOXIDE HCL 25 MG CAPSULE PO SCH ×2 (05:13→10:03)
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
[2019-03-31 09:20] VITALS: BP 109/75; PULSE 55; TEMP 96.3
[2019-03-31] MEDS ORDERED: PRENATAL VITAMINS W/ FOLIC ACID TABLET (FP) PO SCH (10:00)
[2019-03-31] MEDS ORDERED: METHADONE HCL 10 MG TABLET (FOR DETOX USE ONLY) PO ONE (10:00)
[2019-03-31] MEDS ORDERED: NICOTINE 14 MG/24 HOURS TOPICAL PATCH TD SCH (10:00)
[2019-03-31 10:31] LABS: HEMATOCRIT 36.8 % (35.4-49); HEMOGLOBIN 12.4 GM/dL (11.7-16.9); MCH 30.2 pg (25.7-33.7); MCHC 33.6 g/dl (32.0-35.9); MEAN CELL VOLUME 89.9 fl (80-96); MEAN PLT VOLUME 10.9 fl (7.5-11.1); PLATELET COUNT 108 K/MM3 (134-434); RDW 15.8 % (11.9-15.9); WHITE BLOOD COUNT 6.8 K/mm3 (4.0-10.0)
[2019-03-31 10:59] LABS: ALBUMIN 3.3 g/dl (3.4-5.0); BILIRUBIN,TOTAL 0.3 mg/dL (0.2-1); BLOOD UREA NITROGEN 16.8 mg/dL (7-18); CALCIUM 8.6 mg/dL (8.5-10.1); CREATININE 0.9 mg/dL (0.55-1.3); POTASSIUM 4.2 mmol/L (3.5-5.1); TOT PROT 6.2 g/dl (6.4-8.2)
--- NOTE | 2019-03-31 16:47 | EKG ---
Test Reason : Blood Pressure : / mmHG Vent. Rate : 051 BPM Atrial Rate : 051 BPM P-R Int : 140 ms QRS Dur : 086 ms QT Int : 450 ms P-R-T Axes : 038 024 024 degrees QTc Int : 414 ms SINUS BRADYCARDIA OTHERWISE NORMAL ECG WHEN COMPARED WITH ECG OF 02-AUG-2018 19:24, NO SIGNIFICANT CHANGE WAS FOUND Confirmed by LLOYD RATLIFF MD ([id number]) on 03/31/2019 4:46:46 PM Referred By: Confirmed By:LLOYD RATLIFF MD
--- NOTE | 2019-03-31 18:01 | PN ---
S CIWA - CIWA Score Nausea/Vomitin-No Nausea/No Vomiting Muscle Tremors: 2 Anxiety: 3 Agitation: 3 Paroxysmal Sweats: 2 Orientation: 0-Oriented Tacttile Disturbances: 2-Mild Itch/Numbness/Burn Auditory Disturbances: 2-Mild Harshness/Frighten Visual Disturbances: 0-None Headache: 0-None Present CIWA-Ar Total Score: 14 BHS COWS - Scale Resting Pulse: 0= [place] 80 or Below Sweatin= Chills/Flushing Restless Observation: 1= Difficult to Sit Still Pupil Size: 0= Normal to Room Light Bone or Joint Aches: 2= Severe Diffuse Aches Runny Nose/ Eye Tearin= None GI Upset > 30mins: 0= None Tremor Observation of Outstretched Hands: 2= Slight Tremor Visible Yawning Observation: 1= 1-2x During Session Anxiety or Irritability: 2=Irritable/Anxious Goose Flesh Skin: 3=Piloerection COWS Score: 12 BHS Progress Note (SOAP) Subjective: Tremors, Sweating, Body Aches, Anxious. Objective: PATIENT A & O X 3, OBSERVED AMBULATING ON UNIT UNASSISTED. IN NO ACUTE DISTRESS. 03/31/19 18:00 Vital Signs Temperature 96.3 F L 03/31/19 09:20 Pulse Rate 55 L 03/31/19 09:20 Respiratory Rate 18 03/31/19 09:20 Blood Pressure 109/75 03/31/19 09:20 O2 Sat by Pulse Oximetry (%) Laboratory Tests 03/31/19 03/31/19 03/31/19 07:00 07:00 07:00 WBC 6.8 RBC 4.10 Hgb 12.4 Hct 36.8 MCV 89.9 MCH 30.2 MCHC 33.6 RDW 15.8 Plt Count 108 L D MPV 10.9 Sodium 141 Potassium 4.2 Chloride 108 H Carbon Dioxide 29 Anion Gap 3 L BUN 16.8 Creatinine 0.9 Est GFR (CKD-EPI)AfAm 113.41 Est GFR (CKD-EPI)NonAf 97.85 Random Glucose 96 Calcium 8.6 Total Bilirubin 0.3 AST 14 L ALT 16 Alkaline Phosphatase 74 Total Protein 6.2 L Albumin 3.3 L RPR Titer Nonreactive LABS NOTED. Assessment: 03/31/19 18:00 WITHDRAWAL SYMPTOMS. Plan: CONTINUE DETOX.
--- NOTE | 2019-03-31 18:03 | DS ---
[facility] Detox Discharge Summary Admission Date: 03/30/19 Discharge Date: 03/31/19 - History Present History: Alcohol Dependence, Cannabis Dependence, Cocaine Dependence, Opioid Dependence Additional Comments: DESPITE EFFORTS BY PIT HOIST OPERATOR AND BY NURSING STAFF TO ADDRESS PATIENT'S MEDICAL NEEDS / CONCERNS, PATIENT DOES NOT WISH TO REMAIN TO COMPLETE DETOX REGIMEN. RISKS OF LEAVING DETOX UNIT AGAINST MEDICAL ADVICE AND PRIOR TO COMPLETION OF DETOX REGIMEN EXPLAINED TO PATIENT. PATIENT ADVISED TO GO IMMEDIATELY TO NEAREST ER SHOULD ANY INTOLERABLE WITHDRAWAL / DETOX SYMPTOMS DEVELOP AT ANY TIME. PATIENT VERBALIZED UNDERSTANDING OF ALL INFORMATION / RECOMMENDATIONS PRESENTED TO HIM PRIOR TO DEPARTURE FROM DETOX UNIT. PATIENT LEFT DETOX UNIT IN STABLE MEDICAL CONDITION. Pertinent Past History: HTN, Depression, Anxiety, Bipolar Disorder, Schizoaffective Disorder, Post- Traumatic Stress Disorder, Nicotine Dependence, History Of Corneal Abnormality, History Of Lower Back Pain. - Physical Exam Results Vital Signs: Vital Signs Temperature 96.3 F L 03/31/19 09:20 Pulse Rate 55 L 03/31/19 09:20 Respiratory Rate 18 03/31/19 09:20 Blood Pressure 109/75 03/31/19 09:20 O2 Sat by Pulse Oximetry (%) Pertinent Admission Physical Exam Findings: WITHDRAWAL SYMPTOMS. Laboratory Tests 03/31/19 03/31/19 03/31/19 07:00 07:00 07:00 WBC 6.8 RBC 4.10 Hgb 12.4 Hct 36.8 MCV 89.9 MCH 30.2 MCHC 33.6 RDW 15.8 Plt Count 108 L D MPV 10.9 Sodium 141 Potassium 4.2 Chloride 108 H Carbon Dioxide 29 Anion Gap 3 L BUN 16.8 Creatinine 0.9 Est GFR (CKD-EPI)AfAm 113.41 Est GFR (CKD-EPI)NonAf 97.85 Random Glucose 96 Calcium 8.6 Total Bilirubin 0.3 AST 14 L ALT 16 Alkaline Phosphatase 74 Total Protein 6.2 L Albumin 3.3 L RPR Titer Nonreactive LABS NOTED. - Treatment Hospital Course: Detoxed Safely - Medication Discharge Medications: Ambulatory Orders NK [No Known Home Medication] 08/02/18 - Diagnosis (1) Post traumatic stress disorder (PTSD) Status: Chronic (2) Schizoaffective disorder Status: Chronic Qualifiers: Schizoaffective disorder type: unspecified Qualified Code(s): F25.9 - Schizoaffective disorder, unspecified (3) Bipolar disorder Status: Ruled-out Qualifiers: Active/Remission status: remission status unspecified Qualified Code(s): F31.9 - Bipolar disorder, unspecified (4) Alcohol dependence with uncomplicated withdrawal Status: Acute (5) Cannabis dependence Status: Acute (6) Cocaine dependence Status: Acute Qualifiers: Substance use status: uncomplicated Qualified Code(s): F14.20 - Cocaine dependence, uncomplicated (7) Opioid dependence with withdrawal Status: Acute (8) Corneal abnormality Status: Chronic (9) HTN (hypertension) Status: Chronic Qualifiers: Hypertension type: essential hypertension Qualified Code(s): I10 - Essential (primary) hypertension (10) Lower back pain Status: Chronic Qualifiers: Chronicity: chronic Back pain laterality: unspecified Sciatica presence: unspecified whether sciatica present Qualified Code(s): M54.5 - Low back pain ; G89.29 - Other chronic pain (11) Nicotine dependence Status: Chronic Qualifiers: Nicotine product type: cigarettes Substance use status: uncomplicated Qualified Code(s): F17.210 - Nicotine dependence, cigarettes, uncomplicated (12) Obesity (BMI 30.0-34.9) Status: Chronic - AMA Did Patient Leave Against Medical Advice: Yes (PATIENT DID NOT WISH TO REMAIN TO COMPLETE DETOX REGIMEN.)
[2019-03-31] MEDS ORDERED: chlordiazePOXIDE HCL 25 MG CAPSULE PO SCH (23:00)
[2019-04-01] MEDS ORDERED: METHADONE HCL 10 MG TABLET (FOR DETOX USE ONLY) PO ONE (10:00)
[2019-04-01] MEDS ORDERED: chlordiazePOXIDE HCL 10 MG CAPSULE PO SCH (23:00)
[2019-04-01] MEDS ORDERED: chlordiazePOXIDE HCL 10 MG CAPSULE PO PRN (23:00)
[2019-04-02] MEDS ORDERED: METHADONE HCL 10 MG TABLET (FOR DETOX USE ONLY) PO ONE (10:00)
[2019-04-02] MEDS ORDERED: chlordiazePOXIDE HCL 10 MG CAPSULE PO SCH (23:00)
[2019-04-03] MEDS ORDERED: METHADONE HCL 5 MG TABLET (FOR DETOX USE ONLY) PO ONE (06:00)
== END 2019-03-31 11:46 | disposition left against medical advice (07) | DRG 770 ==
LOC: YASAS 14:33 → Y3N 18:50
PROVIDERS: ADMIT Surgery; ATTEND Surgery
PROC: HZ2ZZZZ Detoxification Services for Substance Abuse Treatment (ICD-10-PCS; principal; 2019-03-30)
DX: F11.23 Opioid dependence with withdrawal (principal); F10.230 Alcohol dependence with withdrawal, uncomplicated; F14.20 Cocaine dependence, uncomplicated; F12.20 Cannabis dependence, uncomplicated; F17.210 Nicotine dependence, cigarettes, uncomplicated; F43.10 Post-traumatic stress disorder, unspecified; F25.9 Schizoaffective disorder, unspecified; F31.9 Bipolar disorder, unspecified; I10 Essential (primary) hypertension; M54.5 Low back pain; G89.29 Other chronic pain; E66.9 Obesity, unspecified; Z68.29 Body mass index [BMI] 29.0-29.9, adult
CPT/HCPCS: 36415; 80053; 85027; 86593; 93005; 93010; J0735

== ENCOUNTER 2019-09-13 19:00 | Inpatient (IN) | payer OTHER ==
[2019-09-14] MEDS ORDERED: MENTHOL/PHENOL 1 EACH UD MM PRN (00:24)
[2019-09-14] MEDS ORDERED: MAG HYDROX/AL HYDROX/SIMETH 30 ML UNIT-DOSE CUP PO PRN (00:24)
[2019-09-14] MEDS ORDERED: MAGNESIUM CITRATE 300 ML BOTTLE PO PRN (00:24)
[2019-09-14] MEDS ORDERED: guaiFENesin 200 MG/10 ML 10 ML UNIT-DOSE CUPS PO PRN (00:24)
[2019-09-14] MEDS ORDERED: LOPERAMIDE HCL 2 MG CAPSULE PO PRN (00:24)
[2019-09-14] MEDS ORDERED: IBUPROFEN 400 MG TABLET (FP) PO PRN (00:24)
[2019-09-14] MEDS ORDERED: P-EPHED 60MG/TRIPROLIDI 2.5MG TABLET PO PRN (00:24)
[2019-09-14] MEDS ORDERED: MAGNESIUM HYDROX 2400MG/30ML ORAL SUSPENSION 30 ML CUP PO PRN (00:24)
[2019-09-14] MEDS ORDERED: ACETAMINOPHEN 325 MG TABLET (FP) PO PRN (00:24)
--- NOTE | 2019-09-14 00:25 | HP ---
[facility] Rehab Assess/Revision - Admission History Admitted to Rehab from: [facility]ond[facility] Pe[facility] Date of Admission to Rehab: 09/13/2019 - Vital signs Vital Signs: Vital Signs Period Temp Pulse Resp BP Sys/Rodgers Pulse Ox Last 24 Hr 98.2 F 62 18 153/96 - Findings Detox History & Physical reviewed: Yes Concur with findings: Yes Inpatient Rehab Admission - Rehab Decision to Admit Inpatient rehab admission?: Yes - Initial Determination Are CD services needed?: Yes Free of communicable disease: Yes Not in need of hospitalization: Yes - Rehab Admission Criteria Previous failed treatment: Yes Poor recovery environment: Yes Comorbidities: Yes Lacks judgement: No Patient is meeting Inpatient Rehab admission criteria:: Yes
[2019-09-14] MEDS: PRENATAL VITAMINS W/ FOLIC ACID TABLET (FP) PO SCH (09:56)
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
[2019-09-14] MEDS: THIAMINE HCL 100 MG TABLET (FP) PO SCH (21:25)
[2019-09-14] MEDS: MELATONIN 5 MG TABLETS PO PRN (21:25)
[2019-09-14] MEDS ORDERED: SUVOREXANT 10 MG TABLET PO PRN (22:00)
[2019-09-15] MEDS: PRENATAL VITAMINS W/ FOLIC ACID TABLET (FP) PO SCH (10:06)
[2019-09-15] MEDS: THIAMINE HCL 100 MG TABLET (FP) PO SCH (22:02)
--- NOTE | 2019-09-16 10:20 | PN ---
[facility] Progress Note Note: Patient admitted to rehab. Last 3 admissions reviewed: no concerns about patient safety noted. Orders, home medications, problem list reviewed. Stable; will continue to monitor. Vital Signs Period Temp Pulse Resp BP Sys/Rodgers Pulse Ox Last 24 Hr 98 F 54 18-18 146/85
[2019-09-16] MEDS: PRENATAL VITAMINS W/ FOLIC ACID TABLET (FP) PO SCH (10:42)
[2019-09-16] MEDS: THIAMINE HCL 100 MG TABLET (FP) PO SCH (21:03)
[2019-09-16] MEDS: MELATONIN 5 MG TABLETS PO PRN (21:03)
[2019-09-17] MEDS: PRENATAL VITAMINS W/ FOLIC ACID TABLET (FP) PO SCH (10:03)
[2019-09-17] MEDS: THIAMINE HCL 100 MG TABLET (FP) PO SCH (21:43)
[2019-09-17] MEDS: MELATONIN 5 MG TABLETS PO PRN (21:48)
[2019-09-18] MEDS: PRENATAL VITAMINS W/ FOLIC ACID TABLET (FP) PO SCH (10:30)
[2019-09-18] MEDS: MELATONIN 5 MG TABLETS PO PRN (21:04)
[2019-09-18] MEDS: THIAMINE HCL 100 MG TABLET (FP) PO SCH (21:04)
[2019-09-19] MEDS: PRENATAL VITAMINS W/ FOLIC ACID TABLET (FP) PO SCH (09:47)
--- NOTE | 2019-09-19 11:31 | PN ---
BHS COWS - Scale Resting Pulse: 0= [place] 80 or Below Sweatin= Chills/Flushing Restless Observation: 0= Sits Still Pupil Size: 0= Normal to Room Light Bone or Joint Aches: 2= Severe Diffuse Aches Runny Nose/ Eye Tearin= Runny Nose/Eyes GI Upset > 30mins: 0= None Tremor Observation of Outstretched Hands: 0= None Yawning Observation: 0= None Anxiety or Irritability: 1=Feels Anxious/Irritable Goose Flesh Skin: 0=Smooth Skin COWS Score: 6 BHS Progress Note (SOAP) Subjective: Others' Prescriptions Patient Name: Lance Pacheco Date: 1965 Address: [address] [place] [id number] Sex: Male Rx Written Rx Dispensed Drug Quantity Days Supply Prescriber Name 01/14/2019 01/14/2019 oxycodone-acetaminophen 5-325 mg tab 15 4 [facility] Patient Name: Lance Avery Date: 1965 Address: [address] [place] [address] Sex: Male Rx Written Rx Dispensed Drug Quantity Days Supply Prescriber Name 12/11/2018 12/11/2018 buprenorphine-naloxone 2-0.5 mg sl film 2 2 Roderick Barrera MD 12/11/2018 12/11/2018 buprenorphine-naloxone 2-0.5 mg sl film 1 1 Roderick Barrera MD 12/11/2018 12/11/2018 buprenorphine-naloxone 2-0.5 mg sl film 4 2 Roderick Barrera MD 12/11/2018 12/11/2018 buprenorphine-naloxone 2-0.5 mg sl film 3 1 Roderick Barrera MD Patient is currently in Rehab for Opiod dependence. States sniffing one bundle daily. Completed detox at [facility] on 09/14/19. Requesting to start suboxone MAT as he was treated with suboxone in past. Istop reviewed. Last date he received suboxone 12/11/2018 as noted above. Patient c/o opiod cravings, chills, night sweats and muscle cramps. Objective: 09/19/19 11:44 Vital Signs Temperature 97.5 F L 09/19/19 07:26 Pulse Rate 56 L 09/19/19 07:26 Respiratory Rate 18 09/19/19 07:26 Blood Pressure 141/90 09/19/19 07:26 O2 Sat by Pulse Oximetry (%) PE: alert and oriented x 3 skin warm, + facial/forehead moisture +perrla, eoms intact bl car s1s2, rrr resp cta bl ext full rom, amb ad licha no tremors mildly restless, denies si/hi Assessment: 09/19/19 11:46 suboxone mat opiod dependence Plan: Patient connected to [facility] will start Suboxone 2mg sl bid continue rehab services and monitor clinically
[2019-09-19] MEDS: BUPRENORPHINE/NALOXONE 2 MG/0.5 MG FILM PACKET SL SCH ×2 (12:34→21:22)
[2019-09-19] MEDS: THIAMINE HCL 100 MG TABLET (FP) PO SCH (21:21)
[2019-09-19] MEDS: MELATONIN 5 MG TABLETS PO PRN (21:21)
[2019-09-20] MEDS: PRENATAL VITAMINS W/ FOLIC ACID TABLET (FP) PO SCH (09:54)
[2019-09-20] MEDS: BUPRENORPHINE/NALOXONE 2 MG/0.5 MG FILM PACKET SL SCH ×2 (09:54→21:40)
[2019-09-20] MEDS: NICOTINE 21 MG/24 HOURS TOPICAL PATCH TD SCH (14:46)
[2019-09-20] MEDS: THIAMINE HCL 100 MG TABLET (FP) PO SCH (21:38)
[2019-09-20] MEDS: NICOTINE POLACRILEX 2 MG GUM BUC PRN (21:41)
[2019-09-21] MEDS: NICOTINE POLACRILEX 2 MG GUM BUC PRN ×3 (06:17→21:55)
[2019-09-21] MEDS: NICOTINE 21 MG/24 HOURS TOPICAL PATCH TD SCH (09:34)
[2019-09-21] MEDS: PRENATAL VITAMINS W/ FOLIC ACID TABLET (FP) PO SCH (09:34)
[2019-09-21] MEDS: BUPRENORPHINE/NALOXONE 2 MG/0.5 MG FILM PACKET SL SCH ×2 (09:34→21:55)
[2019-09-21] MEDS: THIAMINE HCL 100 MG TABLET (FP) PO SCH (21:55)
[2019-09-21] MEDS: MELATONIN 5 MG TABLETS PO PRN (21:55)
[2019-09-22 07:03] VITALS: BP 122/75; PULSE 66; TEMP 98
--- NOTE | 2019-09-22 09:33 | DS ---
[facility] Rehab Discharge Summary - [facility] Rehab Discharge Summary Admission Date: 09/13/19 Discharge Date: 09/22/19 - History Present History: Cannabis dependence, Cocaine dependence, Opioid dependence Pertinent Past History: 53 year old with opioid dependence without withdrawals. He denies alcohol use. He is using up to 1 bundle of heroin daily, just relapsed 6 months ago due to stress at home and problems. He just overdose yesterday and given narcan at the emergency room at [facility]. He wants to enter detox to stop and decrease his risk of . He smokes 1ppd for many years, smoked today. PMH: None Psurg:None He is domiciled and has family support systems. 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 Patient will go to [facility] for aftercare) Hospital Course: patient attended groups, has 1:1 with counselor, was seen by psychiatric service , was adherent to his medication regimen and treatment plan. Started on suboxone. - Medication Discharge Medications: Ambulatory Orders Naloxone HCl [Narcan] 4 mg NS ASDIR PRN #1 spray 09/09/19 - Medication-Assisted Treatment (MAT) Medication Prescribed: Buprenorphine ([facility]) - Discharge Instructions Diet, activity, other medical instructions: Diet: as tolerated Activity: as tolerated Other medical instructions: Please follow up with aftercare - Diagnosis (1) Alcohol dependence with uncomplicated withdrawal Status: Chronic (2) Cannabis dependence Status: Chronic (3) Cocaine dependence Status: Chronic Qualifiers: Substance use status: uncomplicated Qualified Code(s): F14.20 - Cocaine dependence, uncomplicated - Follow-up Referral Minutes to complete discharge: 20 - AMA Did Patient Leave Against Medical Advice: No
[2019-09-22] MEDS: BUPRENORPHINE/NALOXONE 2 MG/0.5 MG FILM PACKET SL SCH (09:48)
[2019-09-22] MEDS: PRENATAL VITAMINS W/ FOLIC ACID TABLET (FP) PO SCH (09:48)
[2019-09-22] MEDS: NICOTINE 21 MG/24 HOURS TOPICAL PATCH TD SCH (09:48)
[2019-09-22] MEDS: NICOTINE POLACRILEX 2 MG GUM BUC PRN (09:49)
== END 2019-09-22 10:00 | disposition home or self-care (01) | DRG 772 ==
LOC: YASAS 19:00 → Y3W 19:06
PROVIDERS: ADMIT Neuromusculoskeletal Medicine & OMM; ATTEND Neuromusculoskeletal Medicine & OMM
PROC: HZ42ZZZ Group Counseling for Substance Abuse Treatment, Cognitive-Behavioral (ICD-10-PCS; principal; 2019-09-13)
DX: F11.20 Opioid dependence, uncomplicated (principal); F10.20 Alcohol dependence, uncomplicated; F14.20 Cocaine dependence, uncomplicated; F12.20 Cannabis dependence, uncomplicated; F17.210 Nicotine dependence, cigarettes, uncomplicated; F43.10 Post-traumatic stress disorder, unspecified; F19.24 Other psychoactive substance dependence with psychoactive substance-induced mood disorder; F19.282 Other psychoactive substance dependence with psychoactive substance-induced sleep disorder; I10 Essential (primary) hypertension; H54.40 Blindness, one eye, unspecified eye; M54.5 Low back pain; E66.9 Obesity, unspecified; Z68.29 Body mass index [BMI] 29.0-29.9, adult

== ENCOUNTER 2019-11-01 13:29 | Inpatient (IN) | payer OTHER ==
[2019-11-01 16:49] VITALS: BMI 31.9
--- NOTE | 2019-11-01 17:59 | HP ---
"CIWA Score Nausea/Vomitin-Mild Nausea/No Vomiting Muscle Tremors: 1-None Visible, but [place] Anxiety: 3 Agitation: 3 Paroxysmal Sweats: 2 Orientation: 0-Oriented Tacttile Disturbances: 0-None Auditory Disturbances: 0-None Visual Disturbances: 0-None Headache: 2-Mild CIWA-Ar Total Score: 12 - Admission Criteria OASAS Guidelines: Admission for Medically Managed Detox: Requires at least one of the followin. CIWA greater than 12 2. Seizures within the past 24 hours 3. Delirium tremens within the past 24 hours 4. Hallucinations within the past 24 hours 5. Acute intervention needed for co occurring medical disorder 6. Acute intervention needed for co occurring psychiatric disorder 7. Severe withdrawal that cannot be handled at a lower level of care (continued vomiting, continued diarrhea, abnormal vital signs) requiring intravenous medication and/or fluids 8. 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 History of Recent Travel: No Admission [facility] Allergies/Adverse Reactions: Allergies Allergy/AdvReac Type Severity Reaction Status Date / Time No Known Allergies Allergy Verified 11/01/19 16:40 History of Present Illness: This report was requested by: Angela Guerra | Reference #: [id number] Others' Prescriptions Patient Name: Lance Pacheco Date: 1965 Address: [address] [place] [id number] Sex: Male Rx Written Rx Dispensed Drug Quantity Days Supply Prescriber Name 10/27/2019 10/27/2019 buprenorphine-naloxone 4-1 mg sl film 30 30 David, Ranti A 10/24/2019 10/24/2019 buprenorphine-naloxone 4-1 mg sl film 3 3 David, Ranti A Patient Name: Lance Pacheco Date: 1965 Address: [address] [place] [address] Sex: Male Rx Written Rx Dispensed Drug Quantity Days Supply Prescriber Name 01/14/2019 01/14/2019 oxycodone-acetaminophen 5-325 mg tab 15 4 [facility] Patient Name: Lance Avery Date: 1965 Address: [address] [place] [address] Sex: Male Rx Written Rx Dispensed Drug Quantity Days Supply Prescriber Name 12/11/2018 12/11/2018 buprenorphine-naloxone 2-0.5 mg sl film 2 2 Roderick Barrera MD 12/11/2018 12/11/2018 buprenorphine-naloxone 2-0.5 mg sl film 1 1 Roderick Barrera MD 12/11/2018 12/11/2018 buprenorphine-naloxone 2-0.5 mg sl film 4 2 Roderick Barrera MD 12/11/2018 12/11/2018 buprenorphine-naloxone 2-0.5 mg sl film 3 1 Roderick Barrera MD 12/11/2018 12/11/2018 buprenorphine-naloxone 2-0.5 mg sl film 2 1 Roderick Barrera MD 12/09/2018 12/09/2018 buprenorphine-naloxone 8-2 mg sl film 30 15 Roderick Barrera MD 11/21/2018 11/23/2018 suboxone 8 mg-2 mg sl film 30 15 Roderick Barrera MD 11/11/2018 11/11/2018 suboxone 8 mg-2 mg sl film 30 15 Roderick Barrera MD 11/11/2018 11/11/2018 suboxone 8 mg-2 mg sl film 2 1 Roderick Barrera MD pt here requesting detox from eteoh use, reprots blackout yesterday , taken to [facility] . reports relapse on heroin , cocaine, etoh 4 weeks ago , restarted in Suboxone program since 10/24/2019 as noted above . Denies being given narcan yesterday . PMHX : htn, hep c s/p tx w/ interferon , l eye blind, r hand ORIF . 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 )) Neuro: reports: See HPI Endocrine: reports: No Symptoms Reported Hematology: reports: No Symptoms Reported Psychiatric: reports: Orientated x3, Agitated Patient History - Patient Medical History Hx Anemia: No Hx Asthma: No Hx Chronic Obstructive Pulmonary Disease (COPD): No Hx Cancer: No Hx Cardiac Disorders: No Hx Congestive Heart Failure: No Hx Hypertension: No Hx Hypercholesterolemia: No Hx Pacemaker: No HX Cerebrovascular Accident: No Hx Seizures: No Hx Dementia: No Hx Diabetes: No Hx Gastrointestinal Disorders: Yes (Pt has a hx of GERD.) Hx Liver Disease: No Hx Genitourinary Disorders: No Hx Sexually Transmitted Disorders: No Hx Renal Disease (ESRD): No Hx Thyroid Disease: No Hx Human Immunodeficiency Virus (HIV): No (Negative 2018) Hx Hepatitis C: No Hx Depression: Yes Hx Suicide Attempt: No Hx Bipolar Disorder: Yes (Not on medicatyion) Hx Schizophrenia: No - Patient Surgical History Past Surgical History: No Hx Neurologic Surgery: No Hx Cataract Extraction: No Hx Cardiac Surgery: No Hx Lung Surgery: No Hx Breast Surgery: No Hx Breast Biopsy: No Hx Abdominal Surgery: No Hx Appendectomy: No Hx Cholecystectomy: No Hx Genitourinary Surgery: No Hx Section: No Hx Orthopedic Surgery: No Anesthesia Reaction: No - PPD History Date: 09/10/19 Results: 0 mm - Smoking Cessation Smoking history: Current every day smoker Have you smoked in the past 12 months: Yes Aproximately how many cigarettes per day: 5 Hx Chewing Tobacco Use: No Initiated information on smoking cessation: Yes 'Breaking Loose' booklet given: 11/01/19 - Substances abused Cocaine Substance route: Inhalation Frequency: 1-2 times per week Amount used: 1 to 2 grams Age of first use: 19 Date of last use: 11/25/19 Heroin Substance route: Inhalation Frequency: Daily Amount used: 4 to 5 bags .today 10 bags Age of first use: 26 Date of last use: 11/25/19 Admission Physical Exam [facility] - Vital Signs Vital Signs: Vital Signs - 24 hr 11/01/19 11/01/19 16:41 17:00 Temperature 98.2 F 98.2 F Pulse Rate 73 73 Respiratory 16 16 Rate Blood Pressure 118/75 118/75 - Physical General Appearance: Yes: Mild Distress HEENTM: Yes: Normocephalic, Normal Voice, Other (left eye blind) Respiratory: Yes: Chest Non-Tender, Lungs Clear, Normal Breath Sounds, No Respiratory Distress, No Accessory Muscle Use Neck: Yes: No masses,lesions,Nodules, Trachea in good position Cardiology: Yes: Regular Rhythm, Regular Rate, S1, S2 Abdominal: Yes: Hernia (umbilical) Musculoskeletal: Yes: Gait Steady Neurological: Yes: Fully Oriented, Alert, Motor Strength 5/5, Normal Mood/Affect Integumentary: Yes: Warm, Rash (left hand superficial IVth finger right hand scarring form prior ORIF) - Diagnostic (1) Opioid dependence on agonist therapy Current Visit: Yes Status: Acute (2) Alcohol dependence with uncomplicated withdrawal Current Visit: Yes Status: Chronic (3) Cocaine dependence Current Visit: Yes Status: Chronic Qualifiers: Substance use status: uncomplicated Qualified Code(s): F14.20 - Cocaine dependence, uncomplicated Breathalyzer - Breathalyzer Breathalyzer: 0 Urine Drug Screen - Test Device Lot number: [id number] Expiration date: 08/25/21 - Control Is test valid?: Yes - Results Drug screen NEGATIVE: No Urine drug screen results: FREDDIE-Cocaine, FEN-Fentanyl, MOP-Opiates, BUP-Suboxone Inpatient Rehab Admission - Rehab Decision to Admit Inpatient rehab admission?: No"
[2019-11-01] MEDS ORDERED: hydrOXYzine PAMOATE 25 MG CAPSULE (FP) PO PRN (18:10)
[2019-11-01] MEDS ORDERED: METHOCARBAMOL 500 MG TABLET PO PRN (18:10)
[2019-11-01] MEDS ORDERED: MAGNESIUM HYDROX 2400MG/30ML ORAL SUSPENSION 30 ML CUP PO PRN (18:10)
[2019-11-01] MEDS ORDERED: MENTHOL/PHENOL 1 EACH UD MM PRN (18:10)
[2019-11-01] MEDS ORDERED: ACETAMINOPHEN 325 MG TABLET (FP) PO PRN ×2 (18:10)
[2019-11-01] MEDS ORDERED: BISMUTH SUBSALICYLATE 524 MG/30 ML UD PO PRN (18:10)
[2019-11-01] MEDS ORDERED: MAGNESIUM CITRATE 300 ML BOTTLE PO PRN (18:10)
[2019-11-01] MEDS ORDERED: MAG HYDROX/AL HYDROX/SIMETH 30 ML UNIT-DOSE CUP PO PRN (18:10)
[2019-11-01] MEDS ORDERED: IBUPROFEN 400 MG TABLET (FP) PO PRN (18:10)
[2019-11-01] MEDS ORDERED: chlordiazePOXIDE HCL 10 MG CAPSULE PO PRN (18:13)
[2019-11-01] MEDS: ASPIRIN 81 MG CHEWABLE TABLETS PO SCH (18:52)
[2019-11-01] MEDS: THIAMINE HCL 100 MG TABLET (FP) PO SCH (22:17)
[2019-11-01] MEDS: chlordiazePOXIDE HCL 25 MG CAPSULE PO SCH (22:17)
[2019-11-01] MEDS: MELATONIN 5 MG TABLETS PO PRN (22:18)
[2019-11-01] MEDS: NICOTINE POLACRILEX 2 MG GUM BUC PRN (22:18)
[2019-11-01] MEDS: SILVER SULFADIAZINE 1% TOP CREAM 50 GM JAR TP SCH (23:55)
[2019-11-02] MEDS: chlordiazePOXIDE HCL 25 MG CAPSULE PO SCH ×3 (06:00→22:18)
[2019-11-02] MEDS: BUPRENORPHINE/NALOXONE 4 MG/1 MG FILM PACKET SL SCH (10:32)
[2019-11-02] MEDS: ASPIRIN 81 MG CHEWABLE TABLETS PO SCH (10:33)
[2019-11-02] MEDS: SILVER SULFADIAZINE 1% TOP CREAM 50 GM JAR TP SCH (10:33)
[2019-11-02] MEDS: PRENATAL VITAMINS W/ FOLIC ACID TABLET (FP) PO SCH (10:33)
[2019-11-02 12:06] LABS: HEMATOCRIT 37.7 % (35.4-49); HEMOGLOBIN 12.8 GM/dL (11.7-16.9); MCH 30.5 pg (25.7-33.7); MEAN CELL VOLUME 89.7 fl (80-96); PLATELET COUNT 133 K/MM3 (134-434); RDW 14.2 % (11.9-15.9); WHITE BLOOD COUNT 5.6 K/mm3 (4.0-10.0)
[2019-11-02 12:17] LABS: ALBUMIN 3.4 g/dl (3.4-5.0); BILIRUBIN,TOTAL 0.7 mg/dL (0.2-1); BLOOD UREA NITROGEN 20.3 mg/dL (7-18); CALCIUM 8.7 mg/dL (8.5-10.1); CREATININE 0.8 mg/dL (0.55-1.3); POTASSIUM 3.9 mmol/L (3.5-5.1); TOT PROT 6.6 g/dl (6.4-8.2)
[2019-11-02] MEDS: NICOTINE POLACRILEX 2 MG GUM BUC PRN (14:31)
--- NOTE | 2019-11-02 14:56 | EKG ---
Test Reason : Blood Pressure : / mmHG Vent. Rate : 076 BPM Atrial Rate : 076 BPM P-R Int : 136 ms QRS Dur : 086 ms QT Int : 426 ms P-R-T Axes : -06 023 031 degrees QTc Int : 479 ms NORMAL SINUS RHYTHM NONSPECIFIC ST ABNORMALITY BORDERLINE ECG Confirmed by MD ANA CRISTINA, TESS ([id number]) on 11/02/2019 2:55:42 PM Referred By: Michael Beltrán Confirmed By:TESS DE LA PAZ MD
--- NOTE | 2019-11-02 20:05 | PN ---
S CIWA - CIWA Score Nausea/Vomitin-No Nausea/No Vomiting Muscle Tremors: 2 Anxiety: 2 Agitation: 1-Slight > Activity Paroxysmal Sweats: 3 Orientation: 0-Oriented Tacttile Disturbances: 0-None Auditory Disturbances: 0-None Visual Disturbances: 0-None Headache: 3-Moderate CIWA-Ar Total Score: 11 [facility] Progress Note (SOAP) Subjective: Patient admitted for alcohol withdrawal sx. He c/o anxiety, shakes, sweats and headache. Objective: 11/02/19 20:03 Laboratory Tests 11/02/19 11/02/19 11/02/19 07:20 07:20 07:20 WBC 5.6 RBC 4.20 Hgb 12.8 Hct 37.7 MCV 89.7 MCH 30.5 MCHC 34.0 RDW 14.2 Plt Count 133 L D MPV 10.0 D Sodium 139 Potassium 3.9 Chloride 103 Carbon Dioxide 30 Anion Gap 6 L BUN 20.3 H Creatinine 0.8 Est GFR (CKD-EPI)AfAm 118.20 Est GFR (CKD-EPI)NonAf 101.99 Random Glucose 122 H Calcium 8.7 Total Bilirubin 0.7 AST 56 H ALT 31 Alkaline Phosphatase 67 Total Protein 6.6 Albumin 3.4 RPR Titer Nonreactive Vital Signs Period Temp Pulse Resp BP Sys/Rodgers Pulse Ox Last 24 Hr 97.1 F-97.7 F 62-94 16-18 110-139/76-81 PE alert and oriented x3 skin warm, mild moisture to trunk car s1s2 resp cta b ext full rom, amb ad licha +tremors anxious Assessment: 11/02/19 20:04 etoh withdrawal sx Plan: continue detox encourage fluids monitor
[2019-11-02] MEDS: THIAMINE HCL 100 MG TABLET (FP) PO SCH (22:18)
[2019-11-03] MEDS: chlordiazePOXIDE 5 MG CAPSULE PO SCH ×3 (05:30→22:17)
[2019-11-03] MEDS: BUPRENORPHINE/NALOXONE 4 MG/1 MG FILM PACKET SL SCH (10:27)
[2019-11-03] MEDS: PRENATAL VITAMINS W/ FOLIC ACID TABLET (FP) PO SCH (10:27)
[2019-11-03] MEDS: ASPIRIN 81 MG CHEWABLE TABLETS PO SCH (10:27)
[2019-11-03] MEDS: SILVER SULFADIAZINE 1% TOP CREAM 50 GM JAR TP SCH (10:29)
--- NOTE | 2019-11-03 11:27 | PN ---
S CIWA - CIWA Score Nausea/Vomitin-No Nausea/No Vomiting Muscle Tremors: 3 Anxiety: 2 Agitation: 2 Paroxysmal Sweats: 2 Orientation: 0-Oriented Tacttile Disturbances: 0-None Auditory Disturbances: 0-None Visual Disturbances: 0-None Headache: 0-None Present CIWA-Ar Total Score: 9 S Progress Note (SOAP) Subjective: agitation anxiety sweats irritable muscle spasms Objective: 11/03/19 11:26 Vital Signs Temperature 97.9 F 11/03/19 09:20 Pulse Rate 73 11/03/19 09:20 Respiratory Rate 18 11/03/19 09:20 Blood Pressure 143/92 11/03/19 09:20 O2 Sat by Pulse Oximetry (%) Laboratory Tests 11/02/19 11/02/19 11/02/19 07:20 07:20 07:20 WBC 5.6 RBC 4.20 Hgb 12.8 Hct 37.7 MCV 89.7 MCH 30.5 MCHC 34.0 RDW 14.2 Plt Count 133 L D MPV 10.0 D Sodium 139 Potassium 3.9 Chloride 103 Carbon Dioxide 30 Anion Gap 6 L BUN 20.3 H Creatinine 0.8 Est GFR (CKD-EPI)AfAm 118.20 Est GFR (CKD-EPI)NonAf 101.99 Random Glucose 122 H Calcium 8.7 Total Bilirubin 0.7 AST 56 H ALT 31 Alkaline Phosphatase 67 Total Protein 6.6 Albumin 3.4 RPR Titer Nonreactive aaox3 ambulating no acute distress Assessment: 11/03/19 11:27 withdrawals Plan: continue detox increase fluids flexiril 10mg tid prn
[2019-11-03] MEDS: CYCLOBENZAPRINE HCL 10 MG TABLET (FP) PO PRN (13:25)
[2019-11-03] MEDS: THIAMINE HCL 100 MG TABLET (FP) PO SCH (22:17)
[2019-11-04] MEDS ORDERED: chlordiazePOXIDE HCL 10 MG CAPSULE PO PRN
[2019-11-04] MEDS: chlordiazePOXIDE HCL 10 MG CAPSULE PO SCH ×3 (05:18→22:03)
[2019-11-04] MEDS ORDERED: cloNIDine HCL 0.1 MG TABLET PO ONE (08:51)
[2019-11-04] MEDS: BUPRENORPHINE/NALOXONE 4 MG/1 MG FILM PACKET SL SCH (10:26)
[2019-11-04] MEDS: PRENATAL VITAMINS W/ FOLIC ACID TABLET (FP) PO SCH (10:26)
[2019-11-04] MEDS: ASPIRIN 81 MG CHEWABLE TABLETS PO SCH (10:26)
[2019-11-04] MEDS: SILVER SULFADIAZINE 1% TOP CREAM 50 GM JAR TP SCH (10:27)
[2019-11-04] MEDS ORDERED: LISINOPRIL 10 MG TABLET (FP) PO ONE (10:39)
--- NOTE | 2019-11-04 11:12 | PN ---
S CIWA - CIWA Score Nausea/Vomitin-No Nausea/No Vomiting Muscle Tremors: 2 Anxiety: 2 Agitation: 1-Slight > Activity Paroxysmal Sweats: 1-Minimal Palms Moist Orientation: 0-Oriented Tacttile Disturbances: 0-None Auditory Disturbances: 0-None Visual Disturbances: 0-None Headache: 0-None Present CIWA-Ar Total Score: 6 [facility] Progress Note (SOAP) Subjective: sweats chills Objective: 11/04/19 11:07 Vital Signs Temperature 96.9 F L 11/04/19 08:42 Pulse Rate 69 11/04/19 08:42 Respiratory Rate 18 11/04/19 08:42 Blood Pressure 151/94 11/04/19 08:42 O2 Sat by Pulse Oximetry (%) aaox3 ambulating no acute distress pt states he has a h/o of HTN; has not been taking his medication in a while. Assessment: 11/04/19 11:08 mild withdrawals Plan: continue detox pt states he used to take lisinopril 10mg. will order medication for HTN pt encouraged to see his PCP and f/u after detox. pt in agreement monitor BP d/c in am
[2019-11-04] MEDS: THIAMINE HCL 100 MG TABLET (FP) PO SCH (22:03)
[2019-11-04] MEDS: MELATONIN 5 MG TABLETS PO PRN (22:05)
[2019-11-05] MEDS ORDERED: chlordiazePOXIDE HCL 10 MG CAPSULE PO ONE (05:00)
--- NOTE | 2019-11-05 08:58 | DS ---
[facility] Detox Discharge Summary Admission Date: 11/01/19 Discharge Date: 11/05/19 - History Present History: Alcohol Dependence, Cocaine Dependence, Opioid Dependence - Physical Exam Results Vital Signs: Vital Signs Temperature 97.7 F 11/05/19 07:02 Pulse Rate 64 11/05/19 07:02 Respiratory Rate 18 11/05/19 07:02 Blood Pressure 138/90 11/05/19 07:02 O2 Sat by Pulse Oximetry (%) Pertinent Admission Physical Exam Findings: Vital Signs Temperature 97.7 F 11/05/19 07:02 Pulse Rate 64 11/05/19 07:02 Respiratory Rate 18 11/05/19 07:02 Blood Pressure 138/90 11/05/19 07:02 O2 Sat by Pulse Oximetry (%) Laboratory Tests 11/02/19 11/02/19 11/02/19 07:20 07:20 07:20 WBC 5.6 RBC 4.20 Hgb 12.8 Hct 37.7 MCV 89.7 MCH 30.5 MCHC 34.0 RDW 14.2 Plt Count 133 L D MPV 10.0 D Sodium 139 Potassium 3.9 Chloride 103 Carbon Dioxide 30 Anion Gap 6 L BUN 20.3 H Creatinine 0.8 Est GFR (CKD-EPI)AfAm 118.20 Est GFR (CKD-EPI)NonAf 101.99 Random Glucose 122 H Calcium 8.7 Total Bilirubin 0.7 AST 56 H ALT 31 Alkaline Phosphatase 67 Total Protein 6.6 Albumin 3.4 RPR Titer Nonreactive aaox3 ambulating no acute distress +BS all four quadrants lung assessed CTA d/c approx 30-35min to complete - Treatment Hospital Course: Detox Protocol Followed, Detoxed Safely, Responded well, Discharged Condition Good, Rehab Referral Accepted Patient has [facility]ed [facility] - Medication Discharge Medications: Ambulatory Orders NK [No Known Home Medication] 11/01/19 - Diagnosis (1) Alcohol dependence with uncomplicated withdrawal Current Visit: Yes Status: Chronic (2) Cocaine dependence Current Visit: Yes Status: Chronic Qualifiers: Substance use status: uncomplicated Qualified Code(s): F14.20 - Cocaine dependence, uncomplicated (3) Insomnia Current Visit: No Status: Acute (4) Opioid dependence Current Visit: Yes Status: Chronic Qualifiers: Substance use status: uncomplicated Qualified Code(s): F11.20 - Opioid dependence, uncomplicated (5) Substance induced mood disorder Current Visit: No Status: Acute (6) Substance-induced sleep disorder Current Visit: No Status: Acute (7) Cannabis dependence Current Visit: Yes Status: Chronic (8) 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 (9) HTN (hypertension) Current Visit: Yes Status: Chronic Qualifiers: Hypertension type: essential hypertension Qualified Code(s): I10 - Essential (primary) hypertension (10) Lower back pain Current Visit: Yes Status: Chronic Qualifiers: Chronicity: chronic Back pain laterality: unspecified Sciatica presence: unspecified whether sciatica present Qualified Code(s): M54.5 - Low back pain ; G89.29 - Other chronic pain (11) Nicotine dependence Current Visit: Yes Status: Chronic Qualifiers: Nicotine product type: cigarettes Substance use status: uncomplicated Qualified Code(s): F17.210 - Nicotine dependence, cigarettes, uncomplicated (12) Obesity (BMI 30.0-34.9) Current Visit: No Status: Chronic (13) Post traumatic stress disorder (PTSD) Current Visit: No Status: Chronic (14) Schizoaffective disorder Current Visit: No Status: Chronic Qualifiers: Schizoaffective disorder type: unspecified Qualified Code(s): F25.9 - Schizoaffective disorder, unspecified (15) Substance induced mood disorder Current Visit: No Status: Chronic (16) Bipolar disorder Current Visit: No Status: Ruled-out Qualifiers: Active/Remission status: remission status unspecified Qualified Code(s): F31.9 - Bipolar disorder, unspecified - AMA Did Patient Leave Against Medical Advice: No
[2019-11-05] MEDS ORDERED: LISINOPRIL 10 MG TABLET (FP) PO SCH (10:00)
[2019-11-05] MEDS: BUPRENORPHINE/NALOXONE 4 MG/1 MG FILM PACKET SL SCH (10:56)
[2019-11-05] MEDS: ASPIRIN 81 MG CHEWABLE TABLETS PO SCH (10:56)
[2019-11-05] MEDS: PRENATAL VITAMINS W/ FOLIC ACID TABLET (FP) PO SCH (10:56)
[2019-11-05] MEDS: SILVER SULFADIAZINE 1% TOP CREAM 50 GM JAR TP SCH (10:57)
--- NOTE | 2019-11-05 14:53 | HP ---
[facility] Re[facility] Assess/Revision - Vital signs Vital Signs: Vital Signs Period Temp Pulse Resp BP Sys/Rodgers Pulse Ox Last 24 Hr 97.7 F-98.4 F 63-73 18-19 136-152/81-94 Inpatient Rehab Admission - Rehab Decision to Admit Inpatient rehab admission?: Yes - Initial Determination Are CD services needed?: Yes Free of communicable disease: Yes Not in need of hospitalization: Yes - Rehab Admission Criteria Previous failed treatment: Yes Poor recovery environment: Yes Comorbidities: Yes Lacks judgement: No Patient is meeting Inpatient Rehab admission criteria:: Yes
[2019-11-05 17:09] VITALS: BP 139/78; PULSE 75; TEMP 98.1
[2019-11-05] MEDS: MELATONIN 5 MG TABLETS PO PRN (21:48)
[2019-11-05] MEDS: THIAMINE HCL 100 MG TABLET (FP) PO SCH (21:48)
[2019-11-05] MEDS: CYCLOBENZAPRINE HCL 10 MG TABLET (FP) PO PRN (21:49)
== END 2019-11-05 10:30 | disposition other institution (70) | DRG 773 ==
LOC: YASAS 13:29 → Y6N 18:13
PROVIDERS: ADMIT Allergy & Immunology; ATTEND Allergy & Immunology
PROC: HZ2ZZZZ Detoxification Services for Substance Abuse Treatment (ICD-10-PCS; principal; 2019-11-01)
DX: F11.23 Opioid dependence with withdrawal (principal); F10.230 Alcohol dependence with withdrawal, uncomplicated; F14.20 Cocaine dependence, uncomplicated; F12.20 Cannabis dependence, uncomplicated; F17.210 Nicotine dependence, cigarettes, uncomplicated; F19.24 Other psychoactive substance dependence with psychoactive substance-induced mood disorder; F19.282 Other psychoactive substance dependence with psychoactive substance-induced sleep disorder; F43.10 Post-traumatic stress disorder, unspecified; F25.9 Schizoaffective disorder, unspecified; F31.9 Bipolar disorder, unspecified; I10 Essential (primary) hypertension; M54.5 Low back pain; G89.29 Other chronic pain; G47.00 Insomnia, unspecified; H18.899 Other specified disorders of cornea, unspecified eye; E66.9 Obesity, unspecified; Z68.32 Body mass index [BMI] 32.0-32.9, adult
CPT/HCPCS: 36415; 80053; 85027; 86593; 93005; 93010

== ENCOUNTER 2019-11-05 23:04 | Inpatient (IN) | payer OTHER ==
[2019-11-06] MEDS ORDERED: MAGNESIUM CITRATE 300 ML BOTTLE PO PRN (02:59)
[2019-11-06] MEDS ORDERED: MAGNESIUM HYDROX 2400MG/30ML ORAL SUSPENSION 30 ML CUP PO PRN (02:59)
[2019-11-06] MEDS ORDERED: ACETAMINOPHEN 325 MG TABLET (FP) PO PRN (02:59)
[2019-11-06] MEDS ORDERED: LOPERAMIDE HCL 2 MG CAPSULE PO PRN (02:59)
[2019-11-06] MEDS ORDERED: MENTHOL/PHENOL 1 EACH UD MM PRN (02:59)
[2019-11-06] MEDS ORDERED: P-EPHED 60MG/TRIPROLIDI 2.5MG TABLET PO PRN (02:59)
[2019-11-06] MEDS ORDERED: MAG HYDROX/AL HYDROX/SIMETH 30 ML UNIT-DOSE CUP PO PRN (02:59)
[2019-11-06] MEDS ORDERED: guaiFENesin 200 MG/10 ML 10 ML UNIT-DOSE CUPS PO PRN (02:59)
--- NOTE | 2019-11-06 03:01 | HP ---
[facility] Rehab Assess/Revision - Admission History Admitted to Rehab from: [address] - Vital signs Vital Signs: Vital Signs Period Temp Pulse Resp BP Sys/Rodgers Pulse Ox Last 24 Hr 98.1 F 79 18 138/91 - Findings Detox History & Physical reviewed: Yes Concur with findings: Yes Inpatient Rehab Admission - Rehab Decision to Admit Inpatient rehab admission?: Yes - Initial Determination Are CD services needed?: No Free of communicable disease: Yes Not in need of hospitalization: Yes - Rehab Admission Criteria Previous failed treatment: Yes Poor recovery environment: Yes Comorbidities: Yes Lacks judgement: No Patient is meeting Inpatient Rehab admission criteria:: Yes
[2019-11-06] MEDS: PRENATAL VITAMINS W/ FOLIC ACID TABLET (FP) PO SCH (10:17)
--- NOTE | 2019-11-06 10:48 | PN ---
[facility] Progress Note (SOAP) Subjective: Patient requesting suboxone 4mg/daily. PMHx:pt relapsed on heroin, cocaine, etoh 4 weeks ago, restarted in Suboxone program since 10/24/[address] Leahy upon discharge, with confirmation in [facility] (please see admission H & P). Assessment: opioid medically assisted treatment with suboxone 11/06/19 10:47 Plan: Will start suboxone 4mg/daily.
[2019-11-06] MEDS: BUPRENORPHINE/NALOXONE 4 MG/1 MG FILM PACKET SL SCH (11:55)
[2019-11-06] MEDS: NICOTINE POLACRILEX 2 MG GUM BUC PRN ×2 (17:54→21:14)
[2019-11-06] MEDS: THIAMINE HCL 100 MG TABLET (FP) PO SCH (21:14)
[2019-11-06] MEDS: MELATONIN 5 MG TABLETS PO PRN (21:15)
[2019-11-07] MEDS: BUPRENORPHINE/NALOXONE 4 MG/1 MG FILM PACKET SL SCH (09:31)
[2019-11-07] MEDS: PRENATAL VITAMINS W/ FOLIC ACID TABLET (FP) PO SCH (09:31)
[2019-11-07] MEDS: NICOTINE POLACRILEX 2 MG GUM BUC PRN ×3 (10:17→22:21)
--- NOTE | 2019-11-07 12:44 | CONSULT ---
[facility] Psychiatric Consult - Data Date of interview: 11/07/19 Admission source: 6N Identifying data: Mr Avery is a 54 years old male, father of 4 children, unemployed receiving SSI, domiciled seeking detox treatment for alcohol, opioid, cocaine and cannabis Substance Abuse History: Reports history of alcohol, heroin, crack cocaine and marijuana use. 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 Patient is on Suboxone 4 mg/day. Smokes 5 cigarettes daily Psychiatric History: Patient is known for multiple previous admission to this facility. Historical narrative remains consistent. Reports that his first psychiatric contact was at age 19 when he was admitted to [facility] for hearing voices and feeling paranoid. He said that during his 2 weeks stay, he was diagnosed with Bipolar/Schizoprenia and PTSD and started on psychotropic medications. Reports 3 subsequent psychiatric hospitalizations all at [facility]. 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 Reports that up to approximetely 7 months ago he was receiving outpatient psychiatric treatment at [facility] where he was seeing both a therapist and a psychiatrist. Reports he stopped taking medications more than 7 months ago because he has hepatitis C and his primary care physician warns him about taking these medications that don't help him anyway. Claims that medications he was on include Seroquel, Ambien etc. Denies previous suicidal attempt. At present, denies exeriencing psychotic, manic or depressive symptoms, S/H ideations. However, reports sleeping poorly. Requests to take Seroquel to address both psychioatric and sleeping issues Physical/Sexual Abuse/Trauma History: Denies emotional, physical or sexual abuse as well as DV relationship Additional Comment: Reports history of one previous arrests in 2006 for assaulting a [place] trooper. 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 Mental Status Exam - Mental Status Exam Alert and Oriented to: Time, Place, Person Cognitive Function: Fair Patient Appearance: Disheveled Mood: Hopeful, Euthymic Patient Behavior: Cooperative Speech Pattern: Clear Voice Loudness: Normal Thought Process: Intact, Goal Oriented Thought Disorder: Not Present Hallucinations: Denies Suicidal Ideation: Denies Insight/Judgement: Fair Sleep: Poorly Appetite: Good Muscle strength/Tone: Normal Gait/Station: Normal Psychiatric Findings - Problem List ([place] 1, 2,3) (1) Post traumatic stress disorder (PTSD) Current Visit: No Status: Chronic (2) Schizoaffective disorder Current Visit: No Status: Chronic Qualifiers: Schizoaffective disorder type: unspecified Qualified Code(s): F25.9 - Schizoaffective disorder, unspecified (3) Bipolar disorder Current Visit: No Status: Ruled-out Qualifiers: Active/Remission status: remission status unspecified Qualified Code(s): F31.9 - Bipolar disorder, unspecified (4) Substance-induced sleep disorder Current Visit: No Status: Acute (5) Alcohol dependence Current Visit: Yes Status: Acute (6) Cocaine dependence Current Visit: No Status: Acute Qualifiers: Substance use status: uncomplicated Qualified Code(s): F14.20 - Cocaine dependence, uncomplicated (7) Cannabis dependence Current Visit: No Status: Acute (8) Opioid dependence on agonist therapy Current Visit: Yes Status: Chronic (9) Nicotine dependence Current Visit: No Status: Chronic Qualifiers: Nicotine product type: cigarettes Substance use status: uncomplicated Qualified Code(s): F17.210 - Nicotine dependence, cigarettes, uncomplicated (10) HTN (hypertension) Current Visit: No Status: Chronic Qualifiers: Hypertension type: essential hypertension Qualified Code(s): I10 - Essential (primary) hypertension (11) Lower back pain Current Visit: No Status: Chronic Qualifiers: Chronicity: chronic Back pain laterality: unspecified Sciatica presence: unspecified whether sciatica present Qualified Code(s): M54.5 - Low back pain ; G89.29 - Other chronic pain (12) Obesity (BMI 30.0-34.9) Current Visit: No Status: Chronic (13) Hepatitis C Current Visit: Yes Status: Resolved - Initial Treatment Plan Initial Treatment Plan: 1) Start Seroquel 100 mg po HS and Belsomra 10 mg po HS prn for insomnia. 2) Continue inpatient detoxification
[2019-11-07] MEDS: QUEtiapine FUMARATE 100 MG TABLET (FP) PO SCH (21:33)
[2019-11-07] MEDS: MELATONIN 5 MG TABLETS PO PRN (21:33)
[2019-11-07] MEDS: THIAMINE HCL 100 MG TABLET (FP) PO SCH (21:33)
[2019-11-07] MEDS ORDERED: SUVOREXANT 10 MG TABLET PO PRN (22:00)
[2019-11-08] MEDS: BUPRENORPHINE/NALOXONE 4 MG/1 MG FILM PACKET SL SCH (09:52)
[2019-11-08] MEDS: PRENATAL VITAMINS W/ FOLIC ACID TABLET (FP) PO SCH (09:52)
[2019-11-08] MEDS: NICOTINE POLACRILEX 2 MG GUM BUC PRN ×2 (16:53→21:16)
[2019-11-08] MEDS: THIAMINE HCL 100 MG TABLET (FP) PO SCH (21:16)
[2019-11-08] MEDS: MELATONIN 5 MG TABLETS PO PRN (21:16)
[2019-11-08] MEDS: QUEtiapine FUMARATE 100 MG TABLET (FP) PO SCH (21:16)
[2019-11-09] MEDS: NICOTINE POLACRILEX 2 MG GUM BUC PRN ×3 (06:54→21:27)
[2019-11-09] MEDS: BUPRENORPHINE/NALOXONE 4 MG/1 MG FILM PACKET SL SCH (09:48)
[2019-11-09] MEDS: PRENATAL VITAMINS W/ FOLIC ACID TABLET (FP) PO SCH (09:48)
[2019-11-09] MEDS: MELATONIN 5 MG TABLETS PO PRN (21:27)
[2019-11-09] MEDS: QUEtiapine FUMARATE 100 MG TABLET (FP) PO SCH (21:27)
[2019-11-09] MEDS: THIAMINE HCL 100 MG TABLET (FP) PO SCH (21:27)
[2019-11-10] MEDS: BUPRENORPHINE/NALOXONE 4 MG/1 MG FILM PACKET SL SCH (09:42)
[2019-11-10] MEDS: PRENATAL VITAMINS W/ FOLIC ACID TABLET (FP) PO SCH (09:42)
[2019-11-10] MEDS: NICOTINE POLACRILEX 2 MG GUM BUC PRN ×3 (09:44→21:23)
[2019-11-10] MEDS: THIAMINE HCL 100 MG TABLET (FP) PO SCH (21:23)
[2019-11-10] MEDS: QUEtiapine FUMARATE 100 MG TABLET (FP) PO SCH (21:23)
[2019-11-10] MEDS: MELATONIN 5 MG TABLETS PO PRN (21:23)
[2019-11-10] MEDS ORDERED: SUVOREXANT 10 MG TABLET PO PRN (22:00)
[2019-11-11] MEDS: PRENATAL VITAMINS W/ FOLIC ACID TABLET (FP) PO SCH (09:43)
[2019-11-11] MEDS: BUPRENORPHINE/NALOXONE 4 MG/1 MG FILM PACKET SL SCH (09:43)
[2019-11-11] MEDS: NICOTINE POLACRILEX 2 MG GUM BUC PRN ×2 (09:44→21:27)
[2019-11-11] MEDS ORDERED: BUPRENORPHINE/NALOXONE 4 MG/1 MG FILM PACKET SL SCH (11:14)
[2019-11-11] MEDS: QUEtiapine FUMARATE 100 MG TABLET (FP) PO SCH (21:27)
[2019-11-11] MEDS: THIAMINE HCL 100 MG TABLET (FP) PO SCH (21:27)
[2019-11-11] MEDS: MELATONIN 5 MG TABLETS PO PRN (21:27)
[2019-11-12] MEDS: NICOTINE POLACRILEX 2 MG GUM BUC PRN ×4 (06:47→21:37)
[2019-11-12] MEDS ORDERED: COLLOIDAL OATMEAL 1 BAR EACH TP PRN (09:35)
[2019-11-12] MEDS: PRENATAL VITAMINS W/ FOLIC ACID TABLET (FP) PO SCH (10:20)
[2019-11-12] MEDS: HYDROCORTISONE 1% TOPICAL OINT 30 GM TUBE TP PRN (10:20)
[2019-11-12] MEDS: BUPRENORPHINE/NALOXONE 4 MG/1 MG FILM PACKET SL SCH (10:20)
[2019-11-12] MEDS: THIAMINE HCL 100 MG TABLET (FP) PO SCH (21:37)
[2019-11-12] MEDS: MELATONIN 5 MG TABLETS PO PRN (21:37)
[2019-11-12] MEDS: QUEtiapine FUMARATE 100 MG TABLET (FP) PO SCH (21:37)
[2019-11-13] MEDS: PRENATAL VITAMINS W/ FOLIC ACID TABLET (FP) PO SCH (09:31)
[2019-11-13] MEDS: BUPRENORPHINE/NALOXONE 4 MG/1 MG FILM PACKET SL SCH (09:31)
[2019-11-13] MEDS: NICOTINE POLACRILEX 2 MG GUM BUC PRN ×2 (09:32→21:30)
[2019-11-13] MEDS: MELATONIN 5 MG TABLETS PO PRN (21:30)
[2019-11-13] MEDS: THIAMINE HCL 100 MG TABLET (FP) PO SCH (21:30)
[2019-11-13] MEDS: QUEtiapine FUMARATE 100 MG TABLET (FP) PO SCH (21:30)
[2019-11-13] MEDS ORDERED: SUVOREXANT 10 MG TABLET PO PRN ×2 (22:00)
[2019-11-14] MEDS: BUPRENORPHINE/NALOXONE 4 MG/1 MG FILM PACKET SL SCH (10:17)
[2019-11-14] MEDS: PRENATAL VITAMINS W/ FOLIC ACID TABLET (FP) PO SCH (10:17)
[2019-11-14] MEDS: NICOTINE POLACRILEX 2 MG GUM BUC PRN ×3 (10:18→21:13)
[2019-11-14] MEDS: MELATONIN 5 MG TABLETS PO PRN (21:13)
[2019-11-14] MEDS: QUEtiapine FUMARATE 100 MG TABLET (FP) PO SCH (21:13)
[2019-11-14] MEDS: THIAMINE HCL 100 MG TABLET (FP) PO SCH (21:13)
[2019-11-15] MEDS: BUPRENORPHINE/NALOXONE 4 MG/1 MG FILM PACKET SL SCH (10:03)
[2019-11-15] MEDS: PRENATAL VITAMINS W/ FOLIC ACID TABLET (FP) PO SCH (10:03)
[2019-11-15] MEDS: NICOTINE POLACRILEX 2 MG GUM BUC PRN ×2 (10:04→21:43)
[2019-11-15] MEDS: QUEtiapine FUMARATE 100 MG TABLET (FP) PO SCH (21:42)
[2019-11-15] MEDS: THIAMINE HCL 100 MG TABLET (FP) PO SCH (21:42)
[2019-11-15] MEDS: MELATONIN 5 MG TABLETS PO PRN (21:43)
[2019-11-16] MEDS: PRENATAL VITAMINS W/ FOLIC ACID TABLET (FP) PO SCH (09:41)
[2019-11-16] MEDS: BUPRENORPHINE/NALOXONE 4 MG/1 MG FILM PACKET SL SCH (09:41)
--- NOTE | 2019-11-16 14:03 | PN ---
[facility] Progress Note Note: Psychiatric nurse practitioner note: Belsomra 10mg PRN HS renewed. Verbal consent given.
[2019-11-16] MEDS: NICOTINE POLACRILEX 2 MG GUM BUC PRN ×2 (16:51→21:27)
[2019-11-16] MEDS: THIAMINE HCL 100 MG TABLET (FP) PO SCH (21:26)
[2019-11-16] MEDS: QUEtiapine FUMARATE 100 MG TABLET (FP) PO SCH (21:26)
[2019-11-16] MEDS: MELATONIN 5 MG TABLETS PO PRN (21:26)
[2019-11-16] MEDS ORDERED: SUVOREXANT 10 MG TABLET PO PRN (22:00)
[2019-11-16] MEDS: IBUPROFEN 400 MG TABLET (FP) PO PRN (22:48)
--- NOTE | 2019-11-17 09:47 | PN ---
[facility] Progress Note Note: Pt c/o george swollen feet for the last 6 days. No pain, redness. O: Vital Signs - 24 hr 11/17/19 11/17/19 11/17/19 00:24 03:24 07:08 Temperature 97.3 F L Pulse Rate 72 Respiratory 18 18 18 Rate Blood Pressure 128/86 lungs clear Heart RRR good DP pulses a/p: George edema of feet- new onset- no evidence of DVT, CHF. d/w pt to keep feet up when sitting /sleeping
[2019-11-17] MEDS: BUPRENORPHINE/NALOXONE 4 MG/1 MG FILM PACKET SL SCH (09:48)
[2019-11-17] MEDS: PRENATAL VITAMINS W/ FOLIC ACID TABLET (FP) PO SCH (09:48)
[2019-11-17] MEDS: IBUPROFEN 400 MG TABLET (FP) PO PRN ×2 (09:48→21:18)
[2019-11-17] MEDS: NICOTINE POLACRILEX 2 MG GUM BUC PRN ×2 (09:49→16:36)
[2019-11-17] MEDS: MELATONIN 5 MG TABLETS PO PRN (21:17)
[2019-11-17] MEDS: THIAMINE HCL 100 MG TABLET (FP) PO SCH (21:17)
[2019-11-17] MEDS: QUEtiapine FUMARATE 100 MG TABLET (FP) PO SCH (21:17)
[2019-11-18] MEDS: BUPRENORPHINE/NALOXONE 4 MG/1 MG FILM PACKET SL SCH (09:38)
[2019-11-18] MEDS: PRENATAL VITAMINS W/ FOLIC ACID TABLET (FP) PO SCH (09:38)
[2019-11-18] MEDS: NICOTINE POLACRILEX 2 MG GUM BUC PRN ×2 (09:38→21:10)
[2019-11-18] MEDS: IBUPROFEN 400 MG TABLET (FP) PO PRN ×2 (09:39→21:11)
[2019-11-18] MEDS: MELATONIN 5 MG TABLETS PO PRN (21:10)
[2019-11-18] MEDS: THIAMINE HCL 100 MG TABLET (FP) PO SCH (21:10)
[2019-11-18] MEDS: QUEtiapine FUMARATE 100 MG TABLET (FP) PO SCH (21:10)
[2019-11-19] MEDS: PRENATAL VITAMINS W/ FOLIC ACID TABLET (FP) PO SCH (10:07)
[2019-11-19] MEDS: BUPRENORPHINE/NALOXONE 4 MG/1 MG FILM PACKET SL SCH (10:09)
[2019-11-19] MEDS: IBUPROFEN 400 MG TABLET (FP) PO PRN (10:09)
[2019-11-19] MEDS: NICOTINE POLACRILEX 2 MG GUM BUC PRN ×2 (10:11→21:26)
[2019-11-19] MEDS: MELATONIN 5 MG TABLETS PO PRN (21:25)
[2019-11-19] MEDS: THIAMINE HCL 100 MG TABLET (FP) PO SCH (21:25)
[2019-11-19] MEDS: QUEtiapine FUMARATE 100 MG TABLET (FP) PO SCH (21:25)
[2019-11-19] MEDS ORDERED: SUVOREXANT 10 MG TABLET PO PRN (22:00)
[2019-11-20] MEDS: PRENATAL VITAMINS W/ FOLIC ACID TABLET (FP) PO SCH (09:50)
[2019-11-20] MEDS: IBUPROFEN 400 MG TABLET (FP) PO PRN (09:51)
[2019-11-20] MEDS: BUPRENORPHINE/NALOXONE 4 MG/1 MG FILM PACKET SL SCH (09:51)
[2019-11-20] MEDS: NICOTINE POLACRILEX 2 MG GUM BUC PRN (09:53)
[2019-11-20] MEDS: THIAMINE HCL 100 MG TABLET (FP) PO SCH (21:21)
[2019-11-20] MEDS: QUEtiapine FUMARATE 100 MG TABLET (FP) PO SCH (21:21)
[2019-11-20] MEDS: MELATONIN 5 MG TABLETS PO PRN (21:22)
[2019-11-21] MEDS: PRENATAL VITAMINS W/ FOLIC ACID TABLET (FP) PO SCH (10:18)
[2019-11-21] MEDS: BUPRENORPHINE/NALOXONE 4 MG/1 MG FILM PACKET SL SCH (10:20)
[2019-11-21] MEDS: IBUPROFEN 400 MG TABLET (FP) PO PRN ×2 (10:22→21:25)
[2019-11-21] MEDS: MELATONIN 5 MG TABLETS PO PRN (21:24)
[2019-11-21] MEDS: THIAMINE HCL 100 MG TABLET (FP) PO SCH (21:24)
[2019-11-21] MEDS: QUEtiapine FUMARATE 100 MG TABLET (FP) PO SCH (21:24)
[2019-11-21] MEDS: NICOTINE POLACRILEX 2 MG GUM BUC PRN (21:25)
[2019-11-22] MEDS: NICOTINE POLACRILEX 2 MG GUM BUC PRN ×3 (06:45→21:14)
[2019-11-22] MEDS: BUPRENORPHINE/NALOXONE 4 MG/1 MG FILM PACKET SL SCH (09:40)
[2019-11-22] MEDS: IBUPROFEN 400 MG TABLET (FP) PO PRN ×2 (09:41→21:14)
[2019-11-22] MEDS: PRENATAL VITAMINS W/ FOLIC ACID TABLET (FP) PO SCH (09:41)
--- NOTE | 2019-11-22 16:32 | PN ---
[facility] Progress Note Note: Psychiatry Attending's note : Renewal of suvorexant. Called by NICA [place]. Chart reviewed. Medication confirmed. No report of side effects. Effective response. Belsomra 10 mg po hs prn. Resumed.
[2019-11-22] MEDS: QUEtiapine FUMARATE 100 MG TABLET (FP) PO SCH (21:13)
[2019-11-22] MEDS: THIAMINE HCL 100 MG TABLET (FP) PO SCH (21:13)
[2019-11-22] MEDS: MELATONIN 5 MG TABLETS PO PRN (21:13)
[2019-11-22] MEDS ORDERED: SUVOREXANT 10 MG TABLET PO PRN (22:00)
[2019-11-23] MEDS: BUPRENORPHINE/NALOXONE 4 MG/1 MG FILM PACKET SL SCH (09:33)
[2019-11-23] MEDS: PRENATAL VITAMINS W/ FOLIC ACID TABLET (FP) PO SCH (09:33)
[2019-11-23] MEDS: NICOTINE POLACRILEX 2 MG GUM BUC PRN ×2 (09:34→21:25)
[2019-11-23] MEDS: IBUPROFEN 400 MG TABLET (FP) PO PRN ×2 (09:34→21:25)
[2019-11-23] MEDS: THIAMINE HCL 100 MG TABLET (FP) PO SCH (21:24)
[2019-11-23] MEDS: MELATONIN 5 MG TABLETS PO PRN (21:24)
[2019-11-23] MEDS: QUEtiapine FUMARATE 100 MG TABLET (FP) PO SCH (21:25)
[2019-11-24] MEDS: PRENATAL VITAMINS W/ FOLIC ACID TABLET (FP) PO SCH (10:25)
[2019-11-24] MEDS: IBUPROFEN 400 MG TABLET (FP) PO PRN ×2 (10:27→21:34)
[2019-11-24] MEDS: NICOTINE POLACRILEX 2 MG GUM BUC PRN ×2 (10:28→21:37)
[2019-11-24] MEDS: BUPRENORPHINE/NALOXONE 4 MG/1 MG FILM PACKET SL SCH (12:08)
[2019-11-24] MEDS: THIAMINE HCL 100 MG TABLET (FP) PO SCH (21:31)
[2019-11-24] MEDS: QUEtiapine FUMARATE 100 MG TABLET (FP) PO SCH (21:31)
[2019-11-25] MEDS: NICOTINE POLACRILEX 2 MG GUM BUC PRN ×3 (07:40→21:28)
[2019-11-25] MEDS: PRENATAL VITAMINS W/ FOLIC ACID TABLET (FP) PO SCH (09:51)
[2019-11-25] MEDS: BUPRENORPHINE/NALOXONE 4 MG/1 MG FILM PACKET SL SCH (09:51)
[2019-11-25] MEDS: HYDROCORTISONE 1% TOPICAL OINT 30 GM TUBE TP PRN (09:52)
[2019-11-25] MEDS ORDERED: PT OWN MED DRAWER 7, Y5N ONE (09:53)
[2019-11-25] MEDS: IBUPROFEN 400 MG TABLET (FP) PO PRN ×2 (09:53→21:27)
[2019-11-25] MEDS: MELATONIN 5 MG TABLETS PO PRN (21:27)
[2019-11-25] MEDS: QUEtiapine FUMARATE 100 MG TABLET (FP) PO SCH (21:27)
[2019-11-25] MEDS: THIAMINE HCL 100 MG TABLET (FP) PO SCH (21:27)
[2019-11-25] MEDS ORDERED: SUVOREXANT 10 MG TABLET PO PRN (22:00)
[2019-11-26] MEDS: PRENATAL VITAMINS W/ FOLIC ACID TABLET (FP) PO SCH (10:01)
[2019-11-26] MEDS: BUPRENORPHINE/NALOXONE 4 MG/1 MG FILM PACKET SL SCH (10:01)
[2019-11-26] MEDS: NICOTINE POLACRILEX 2 MG GUM BUC PRN ×3 (10:01→21:12)
[2019-11-26] MEDS: IBUPROFEN 400 MG TABLET (FP) PO PRN ×2 (10:02→21:11)
[2019-11-26] MEDS: MELATONIN 5 MG TABLETS PO PRN (21:11)
[2019-11-26] MEDS: THIAMINE HCL 100 MG TABLET (FP) PO SCH (21:11)
[2019-11-26] MEDS: QUEtiapine FUMARATE 100 MG TABLET (FP) PO SCH (21:11)
[2019-11-27 06:57] VITALS: BP 143/79; PULSE 65; TEMP 97.5
[2019-11-27] MEDS: BUPRENORPHINE/NALOXONE 4 MG/1 MG FILM PACKET SL SCH (10:03)
[2019-11-27] MEDS: IBUPROFEN 400 MG TABLET (FP) PO PRN ×2 (10:03→21:27)
[2019-11-27] MEDS: PRENATAL VITAMINS W/ FOLIC ACID TABLET (FP) PO SCH (10:03)
[2019-11-27] MEDS: NICOTINE POLACRILEX 2 MG GUM BUC PRN ×3 (10:04→21:28)
[2019-11-27] MEDS: THIAMINE HCL 100 MG TABLET (FP) PO SCH (21:27)
[2019-11-27] MEDS: MELATONIN 5 MG TABLETS PO PRN (21:28)
[2019-11-27] MEDS: QUEtiapine FUMARATE 100 MG TABLET (FP) PO SCH (21:28)
[2019-11-28] MEDS ORDERED: PT OWN MED DRAWER 7, Y5N ONE (09:22)
[2019-11-28] MEDS: BUPRENORPHINE/NALOXONE 4 MG/1 MG FILM PACKET SL SCH (09:32)
[2019-11-28] MEDS: PRENATAL VITAMINS W/ FOLIC ACID TABLET (FP) PO SCH (09:33)
[2019-11-28] MEDS: NICOTINE POLACRILEX 2 MG GUM BUC PRN (09:35)
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
[2019-11-28] MEDS ORDERED: SUVOREXANT 10 MG TABLET PO PRN (22:00)
== END 2019-11-28 09:38 | disposition home or self-care (01) | DRG 772 ==
LOC: YASAS 23:04 → Y3W 23:06
PROVIDERS: ADMIT Allergy & Immunology; ATTEND Allergy & Immunology
PROC: HZ42ZZZ Group Counseling for Substance Abuse Treatment, Cognitive-Behavioral (ICD-10-PCS; principal; 2019-11-05)
DX: F10.20 Alcohol dependence, uncomplicated (principal); F11.20 Opioid dependence, uncomplicated; F14.20 Cocaine dependence, uncomplicated; F12.20 Cannabis dependence, uncomplicated; F17.210 Nicotine dependence, cigarettes, uncomplicated; F19.282 Other psychoactive substance dependence with psychoactive substance-induced sleep disorder; F25.9 Schizoaffective disorder, unspecified; F43.10 Post-traumatic stress disorder, unspecified; M54.5 Low back pain; H54.62 Unqualified visual loss, left eye, normal vision right eye; R60.0 Localized edema; Z86.19 Personal history of other infectious and parasitic diseases; E66.9 Obesity, unspecified; Z68.32 Body mass index [BMI] 32.0-32.9, adult; Z87.828 Personal history of other (healed) physical injury and trauma
CPT/HCPCS: 36415; 87389

== ENCOUNTER 2020-05-10 10:07 | Inpatient (IN) | payer OTHER ==
--- NOTE | 2020-05-10 10:46 | BHS.RME ---
Substance Use & Tx History - Substance Use History Heroin Substance amount: 6 bags Frequency of use: Daily Substance route: Injection (ex: intravenous or skin popping) Date of Last Use: 05/05/20 (First use age 19 y. No OD. NO Narcan at home) Cocaine- Powder Substance amount: $100-$600 Frequency of use: Less than 3 times per week Substance route: Injection (ex: intravenous or skin popping) Date of Last Use: 05/05/20 (First use age 19 y) Nicotine Substance amount: one pack Frequency of use: Daily Substance route: Smoking Date of Last Use: 05/10/20 (First use age 19 y) - Last Treatment Date of last treatment: November 2019 Treatment type: Substance Use Disorder (BENITO) Where was last treatment: Detox Physical/Psych/Mental Status - Behavior General Behavior: Increased activity (restlessness, agitation) Eye Contact: Normal - Cooperativeness Cooperativeness: Cooperative - Thinking Thought Processes: Tight Thought content: Future oriented - Physical Health Problems Is patient presently having any pain?: No Does patient presently have any injuries (include location): No Does patient currently have a fever: No COWS - Scale Resting Pulse: 0= [place] 80 or Below Sweatin= No chills or Flushing Restless Observation: 0= Sits Still Pupil Size: 0= Normal to Room Light Bone or Joint Aches: 0= None Runny Nose/ Eye Tearin= None GI Upset > 30mins: 0= None Tremor Observation: 0= None Yawning Observation: 0= None Anxiety or Irritability: 0= None Goose Flesh Skin: 0=Smooth Skin COWS Score: 0
[2020-05-10 11:06] VITALS: BMI 33.9
[2020-05-10] MEDS ORDERED: LOPERAMIDE HCL 2 MG CAPSULE PO PRN (11:15)
[2020-05-10] MEDS ORDERED: P-EPHED 60MG/TRIPROLIDI 2.5MG TABLET PO PRN (11:15)
[2020-05-10] MEDS ORDERED: guaiFENesin 200 MG/10 ML 10 ML UNIT-DOSE CUPS PO PRN (11:15)
[2020-05-10] MEDS ORDERED: MAG HYDROX/AL HYDROX/SIMETH 30 ML UNIT-DOSE CUP PO PRN (11:15)
[2020-05-10] MEDS ORDERED: MAGNESIUM CITRATE 300 ML BOTTLE PO PRN (11:15)
[2020-05-10] MEDS ORDERED: MAGNESIUM HYDROX 2400MG/30ML ORAL SUSPENSION 30 ML CUP PO PRN (11:15)
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
[2020-05-10] MEDS ORDERED: PNEUMOC 13-VAL CONJ-DIP CRM/PF 0.5 ML DISP.SYRIN IM ONE (12:11)
[2020-05-10] MEDS: NICOTINE 21 MG/24 HOURS TOPICAL PATCH TD SCH (13:42)
[2020-05-10 14:17] LABS: HEMATOCRIT 38.4 % (35.4-49); HEMOGLOBIN 12.7 GM/dL (11.7-16.9); MCH 29.1 pg (25.7-33.7); MEAN PLT VOLUME 10.2 fl (7.5-11.1); PLATELET COUNT 213 K/MM3 (134-434); RBC 4.36 M/mm3 (4.00-5.60); RDW 13.6 % (11.9-15.9); WHITE BLOOD COUNT 5.4 K/mm3 (4.0-10.0)
[2020-05-10] MEDS: hydrOXYzine PAMOATE 25 MG CAPSULE (FP) PO SCH ×3 (14:24→21:39)
[2020-05-10 14:32] LABS: BILIRUBIN,TOTAL 0.5 mg/dL (0.2-1); CALCIUM 9.5 mg/dL (8.5-10.1); POTASSIUM 4.5 mmol/L (3.5-5.1); TOT PROT 8.7 g/dl (6.4-8.2)
[2020-05-10 14:51] LABS: BLOOD UREA NITROGEN 16.4 mg/dL (7-18)
[2020-05-10 15:35] LABS: SICKLE CELL SCREEN NEGATIVE (NEGATIVE)
[2020-05-10] MEDS: MELATONIN 5 MG TABLETS PO SCH (21:39)
[2020-05-10] MEDS: THIAMINE HCL 100 MG TABLET (FP) PO SCH (21:40)
[2020-05-10] MEDS: NICOTINE POLACRILEX 2 MG GUM BUC PRN (21:40)
[2020-05-11] MEDS: hydrOXYzine PAMOATE 25 MG CAPSULE (FP) PO SCH ×5 (06:40→21:42)
[2020-05-11] MEDS ORDERED: BUPRENORPHINE HCL/NALOXONE 12 MG-3 MG SL FILM PACKET SL SCH (10:00)
[2020-05-11] MEDS: BUPRENORPHINE HCL/NALOXONE 12 MG-3 MG SL FILM PACKET SL SCH (10:02)
[2020-05-11] MEDS: NICOTINE POLACRILEX 2 MG GUM BUC PRN ×2 (10:03→15:11)
[2020-05-11] MEDS: PRENATAL VITAMINS W/ FOLIC ACID TABLET (FP) PO SCH (10:03)
[2020-05-11] MEDS: NICOTINE 21 MG/24 HOURS TOPICAL PATCH TD SCH (10:03)
[2020-05-11] MEDS ORDERED: PT OWN MED DRAWER 7, Y5N ONE (10:20)
[2020-05-11] MEDS ORDERED: PNEUMOCOCCAL 23 VACCINE 0.5 ML VIAL IM ONE (12:00)
[2020-05-11] MEDS: THIAMINE HCL 100 MG TABLET (FP) PO SCH (21:42)
[2020-05-11] MEDS: MELATONIN 5 MG TABLETS PO SCH (21:42)
[2020-05-12] MEDS: hydrOXYzine PAMOATE 25 MG CAPSULE (FP) PO SCH ×5 (06:29→21:45)
[2020-05-12] MEDS: NICOTINE POLACRILEX 2 MG GUM BUC PRN ×4 (11:01→20:44)
[2020-05-12] MEDS: NICOTINE 21 MG/24 HOURS TOPICAL PATCH TD SCH (11:01)
[2020-05-12] MEDS: PRENATAL VITAMINS W/ FOLIC ACID TABLET (FP) PO SCH (11:01)
[2020-05-12] MEDS: BUPRENORPHINE HCL/NALOXONE 12 MG-3 MG SL FILM PACKET SL SCH (11:02)
[2020-05-12] MEDS: IBUPROFEN 400 MG TABLET (FP) PO PRN (11:04)
[2020-05-12 11:11] LABS: URINE APPEARANCE Clear; URINE BILIRUBIN Negative (NEGATIVE); URINE COLOR Yellow; URINE GLUCOSE (UA) Negative (NEGATIVE); URINE KETONE Negative (NEGATIVE); URINE LEUK ESTERASE Negative (NEGATIVE); URINE NITRITE Negative (NEGATIVE); URINE PROTEIN Negative (NEGATIVE); URINE UROBILINOGEN 0.2 mg/dL (0.2-1.0)
[2020-05-12 14:56] LABS: EPI CELLS 3 /uL (0-25.1); HYALINE CASTS 1 /uL (0-3.1); URINE RBC 12 /uL (0-23.9); URINE WBC 7 /uL (0-25.8)
[2020-05-12 14:57] LABS: URINE BACTERIA 279 /uL (0-1359)
[2020-05-12] MEDS: THIAMINE HCL 100 MG TABLET (FP) PO SCH (21:45)
[2020-05-12] MEDS: MELATONIN 5 MG TABLETS PO SCH (21:45)
[2020-05-13] MEDS: IBUPROFEN 400 MG TABLET (FP) PO PRN (04:04)
[2020-05-13] MEDS: NICOTINE POLACRILEX 2 MG GUM BUC PRN ×6 (04:08→20:42)
[2020-05-13] MEDS: hydrOXYzine PAMOATE 25 MG CAPSULE (FP) PO SCH ×5 (06:14→21:56)
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
--- NOTE | 2020-05-13 10:42 | PN ---
[facility] Progress Note Note: Pt has two copies of lab results from [facility] in his Chart on the unit faxed from intake yesterday. Pt's Covid-19 PCR screen result not detected on 02/12/20 and 05/05/20. Also, Covid-19 Antibody test Non-reactive on 05/06/20. Vital Signs - 24 hr 05/12/20 05/12/20 05/13/20 14:36 20:04 06:50 Temperature 97.1 F L Pulse Rate 66 Respiratory 18 Rate Blood Pressure 148/94 O2 Sat by Pulse 96 97 97 Oximetry (%) 05/13/20 07:38 Temperature Pulse Rate 52 L Respiratory 18 Rate Blood Pressure 119/70 O2 Sat by Pulse Oximetry (%)
[2020-05-13] MEDS: NICOTINE 21 MG/24 HOURS TOPICAL PATCH TD SCH (11:31)
[2020-05-13] MEDS: BUPRENORPHINE HCL/NALOXONE 12 MG-3 MG SL FILM PACKET SL SCH (11:32)
[2020-05-13] MEDS: PRENATAL VITAMINS W/ FOLIC ACID TABLET (FP) PO SCH (11:32)
[2020-05-13] MEDS: MELATONIN 5 MG TABLETS PO SCH (21:55)
[2020-05-13] MEDS: THIAMINE HCL 100 MG TABLET (FP) PO SCH (21:56)
[2020-05-13] MEDS: QUEtiapine FUMARATE 100 MG TABLET (FP) PO SCH (21:56)
[2020-05-14] MEDS: hydrOXYzine PAMOATE 25 MG CAPSULE (FP) PO SCH ×5 (07:12→21:26)
[2020-05-14] MEDS: NICOTINE POLACRILEX 2 MG GUM BUC PRN ×5 (07:14→21:59)
[2020-05-14] MEDS: PRENATAL VITAMINS W/ FOLIC ACID TABLET (FP) PO SCH (11:07)
[2020-05-14] MEDS: BUPRENORPHINE HCL/NALOXONE 12 MG-3 MG SL FILM PACKET SL SCH (11:07)
[2020-05-14] MEDS: NICOTINE 21 MG/24 HOURS TOPICAL PATCH TD SCH (11:08)
[2020-05-14] MEDS: IBUPROFEN 400 MG TABLET (FP) PO PRN (11:09)
--- NOTE | 2020-05-14 11:42 | PN ---
[facility] Progress Note (SOAP) Subjective: pt c/o itchy rash on left index finger. Objective: 05/14/20 11:41 Vital Signs - 24 hr 05/13/20 05/13/20 05/14/20 13:35 21:18 07:43 Temperature 97.7 F Pulse Rate 55 L Respiratory 18 Rate Blood Pressure 126/86 O2 Sat by Pulse 95 96 96 Oximetry (%) Laboratory Tests 05/10/20 05/10/20 05/10/20 11:30 11:30 11:30 WBC 5.4 RBC 4.36 Hgb 12.7 Hct 38.4 MCV 88.0 MCH 29.1 MCHC 33.0 RDW 13.6 Plt Count 213 D MPV 10.2 Sickle Cell Screen Negative Sodium 140 Potassium 4.5 Chloride 103 Carbon Dioxide 29 Anion Gap 8 BUN 16.4 Creatinine 1.0 Est GFR (CKD-EPI)AfAm 99.15 Est GFR (CKD-EPI)NonAf 85.55 Random Glucose 111 H Calcium 9.5 Total Bilirubin 0.5 AST 29 ALT 45 Alkaline Phosphatase 53 Total Protein 8.7 H Albumin 4.0 Urine Color Urine Appearance Urine pH Ur Specific Williams Urine Protein Urine Glucose (UA) Urine Ketones Urine Blood Urine Nitrite Urine Bilirubin Urine Urobilinogen Ur Leukocyte Esterase Urine WBC (Auto) Urine RBC (Auto) Urine Casts (Auto) U Epithel Cells (Auto) Urine Bacteria (Auto) Syphilis Serology Non-reactive 05/12/20 08:10 WBC RBC Hgb Hct MCV MCH MCHC RDW Plt Count MPV Sickle Cell Screen Sodium Potassium Chloride Carbon Dioxide Anion Gap BUN Creatinine Est GFR (CKD-EPI)AfAm Est GFR (CKD-EPI)NonAf Random Glucose Calcium Total Bilirubin AST ALT Alkaline Phosphatase Total Protein Albumin Urine Color Yellow Urine Appearance Clear Urine pH 6.0 Ur Specific Williams 1.020 Urine Protein Negative Urine Glucose (UA) Negative Urine Ketones Negative Urine Blood Negative Urine Nitrite Negative Urine Bilirubin Negative Urine Urobilinogen 0.2 Ur Leukocyte Esterase Negative Urine WBC (Auto) 7 Urine RBC (Auto) 12 Urine Casts (Auto) 1 U Epithel Cells (Auto) 3 Urine Bacteria (Auto) 279 Syphilis Serology Hand:skin on dorsal left index with leathery patchy outer small bumps and inner moist open skin. Assessment: 05/14/20 11:41 [id number] dermatitis 08/14/20 13:30 Plan: Hydrocortisone ointment 1% apply to affected areas twice daily
[2020-05-14] MEDS ORDERED: HYDROCORTISONE 1% TOPICAL OINT 30 GM TUBE TP SCH (11:45)
[2020-05-14] MEDS: HYDROCORTISONE 1% TOPICAL OINT 30 GM TUBE TP SCH ×2 (14:21→21:25)
[2020-05-14] MEDS: MELATONIN 5 MG TABLETS PO SCH (21:25)
[2020-05-14] MEDS: THIAMINE HCL 100 MG TABLET (FP) PO SCH (21:25)
[2020-05-14] MEDS: QUEtiapine FUMARATE 100 MG TABLET (FP) PO SCH (21:25)
[2020-05-15] MEDS: hydrOXYzine PAMOATE 25 MG CAPSULE (FP) PO SCH ×5 (06:49→21:41)
[2020-05-15] MEDS: NICOTINE POLACRILEX 2 MG GUM BUC PRN ×3 (06:50→21:43)
[2020-05-15] MEDS: HYDROCORTISONE 1% TOPICAL OINT 30 GM TUBE TP SCH ×2 (10:57→21:50)
[2020-05-15] MEDS: NICOTINE 21 MG/24 HOURS TOPICAL PATCH TD SCH (10:57)
[2020-05-15] MEDS: PRENATAL VITAMINS W/ FOLIC ACID TABLET (FP) PO SCH (10:57)
[2020-05-15] MEDS: BUPRENORPHINE HCL/NALOXONE 12 MG-3 MG SL FILM PACKET SL SCH (10:58)
[2020-05-15] MEDS: QUEtiapine FUMARATE 100 MG TABLET (FP) PO SCH (21:41)
[2020-05-15] MEDS: MELATONIN 5 MG TABLETS PO SCH (21:41)
[2020-05-15] MEDS: THIAMINE HCL 100 MG TABLET (FP) PO SCH (21:41)
[2020-05-15] MEDS: IBUPROFEN 400 MG TABLET (FP) PO PRN (21:42)
[2020-05-16] MEDS: hydrOXYzine PAMOATE 25 MG CAPSULE (FP) PO SCH ×5 (06:52→21:41)
[2020-05-16] MEDS: ACETAMINOPHEN 325 MG TABLET (FP) PO PRN (06:54)
[2020-05-16] MEDS: NICOTINE POLACRILEX 2 MG GUM BUC PRN ×5 (06:55→21:42)
[2020-05-16] MEDS: PRENATAL VITAMINS W/ FOLIC ACID TABLET (FP) PO SCH (10:48)
[2020-05-16] MEDS: BUPRENORPHINE HCL/NALOXONE 12 MG-3 MG SL FILM PACKET SL SCH (10:48)
[2020-05-16] MEDS: HYDROCORTISONE 1% TOPICAL OINT 30 GM TUBE TP SCH ×2 (10:48→21:43)
[2020-05-16] MEDS: NICOTINE 21 MG/24 HOURS TOPICAL PATCH TD SCH (10:48)
[2020-05-16] MEDS: MELATONIN 5 MG TABLETS PO SCH (21:41)
[2020-05-16] MEDS: QUEtiapine FUMARATE 100 MG TABLET (FP) PO SCH (21:41)
[2020-05-16] MEDS: IBUPROFEN 400 MG TABLET (FP) PO PRN (21:41)
[2020-05-16] MEDS: THIAMINE HCL 100 MG TABLET (FP) PO SCH (21:41)
[2020-05-17] MEDS: NICOTINE POLACRILEX 2 MG GUM BUC PRN ×5 (04:05→22:09)
[2020-05-17] MEDS: hydrOXYzine PAMOATE 25 MG CAPSULE (FP) PO SCH ×5 (08:01→22:08)
[2020-05-17] MEDS: PRENATAL VITAMINS W/ FOLIC ACID TABLET (FP) PO SCH (09:45)
[2020-05-17] MEDS: NICOTINE 21 MG/24 HOURS TOPICAL PATCH TD SCH (09:46)
[2020-05-17] MEDS: HYDROCORTISONE 1% TOPICAL OINT 30 GM TUBE TP SCH ×2 (09:46→22:08)
[2020-05-17] MEDS: BUPRENORPHINE HCL/NALOXONE 12 MG-3 MG SL FILM PACKET SL SCH (10:52)
[2020-05-17] MEDS: QUEtiapine FUMARATE 100 MG TABLET (FP) PO SCH (22:08)
[2020-05-17] MEDS: MELATONIN 5 MG TABLETS PO SCH (22:08)
[2020-05-17] MEDS: THIAMINE HCL 100 MG TABLET (FP) PO SCH (22:08)
[2020-05-17] MEDS: ACETAMINOPHEN 325 MG TABLET (FP) PO PRN (22:10)
[2020-05-18] MEDS: NICOTINE POLACRILEX 2 MG GUM BUC PRN ×3 (07:05→21:20)
[2020-05-18] MEDS: hydrOXYzine PAMOATE 25 MG CAPSULE (FP) PO SCH ×5 (07:05→21:19)
[2020-05-18] MEDS: BUPRENORPHINE HCL/NALOXONE 12 MG-3 MG SL FILM PACKET SL SCH (11:22)
[2020-05-18] MEDS: PRENATAL VITAMINS W/ FOLIC ACID TABLET (FP) PO SCH (11:22)
[2020-05-18] MEDS: HYDROCORTISONE 1% TOPICAL OINT 30 GM TUBE TP SCH ×2 (11:22→21:59)
[2020-05-18] MEDS: ACETAMINOPHEN 325 MG TABLET (FP) PO PRN (11:23)
[2020-05-18] MEDS: NICOTINE 21 MG/24 HOURS TOPICAL PATCH TD SCH (11:24)
[2020-05-18] MEDS: MELATONIN 5 MG TABLETS PO SCH (21:18)
[2020-05-18] MEDS: THIAMINE HCL 100 MG TABLET (FP) PO SCH (21:19)
[2020-05-18] MEDS: QUEtiapine FUMARATE 100 MG TABLET (FP) PO SCH (21:19)
[2020-05-19] MEDS: ACETAMINOPHEN 325 MG TABLET (FP) PO PRN ×2 (06:57→11:21)
[2020-05-19] MEDS: NICOTINE POLACRILEX 2 MG GUM BUC PRN ×3 (06:57→22:08)
[2020-05-19] MEDS: hydrOXYzine PAMOATE 25 MG CAPSULE (FP) PO SCH ×5 (06:57→22:08)
[2020-05-19] MEDS: PRENATAL VITAMINS W/ FOLIC ACID TABLET (FP) PO SCH (11:18)
[2020-05-19] MEDS: BUPRENORPHINE HCL/NALOXONE 12 MG-3 MG SL FILM PACKET SL SCH (11:19)
[2020-05-19] MEDS: HYDROCORTISONE 1% TOPICAL OINT 30 GM TUBE TP SCH ×2 (11:20→22:11)
[2020-05-19] MEDS: NICOTINE 21 MG/24 HOURS TOPICAL PATCH TD SCH (11:20)
[2020-05-19] MEDS: QUEtiapine FUMARATE 100 MG TABLET (FP) PO SCH (22:08)
[2020-05-19] MEDS: THIAMINE HCL 100 MG TABLET (FP) PO SCH (22:08)
[2020-05-19] MEDS: IBUPROFEN 400 MG TABLET (FP) PO PRN (22:10)
[2020-05-19] MEDS: MELATONIN 5 MG TABLETS PO SCH (22:10)
[2020-05-20] MEDS: NICOTINE POLACRILEX 2 MG GUM BUC PRN ×3 (06:27→21:47)
[2020-05-20] MEDS: hydrOXYzine PAMOATE 25 MG CAPSULE (FP) PO SCH ×5 (06:27→21:46)
[2020-05-20] MEDS: NICOTINE 21 MG/24 HOURS TOPICAL PATCH TD SCH (11:08)
[2020-05-20] MEDS: HYDROCORTISONE 1% TOPICAL OINT 30 GM TUBE TP SCH ×2 (11:08→21:46)
[2020-05-20] MEDS: PRENATAL VITAMINS W/ FOLIC ACID TABLET (FP) PO SCH (11:08)
[2020-05-20] MEDS: BUPRENORPHINE HCL/NALOXONE 12 MG-3 MG SL FILM PACKET SL SCH (11:08)
[2020-05-20] MEDS: QUEtiapine FUMARATE 100 MG TABLET (FP) PO SCH (21:46)
[2020-05-20] MEDS: THIAMINE HCL 100 MG TABLET (FP) PO SCH (21:46)
[2020-05-20] MEDS: MELATONIN 5 MG TABLETS PO SCH (21:46)
[2020-05-21] MEDS: hydrOXYzine PAMOATE 25 MG CAPSULE (FP) PO SCH ×5 (06:15→21:09)
[2020-05-21] MEDS: NICOTINE POLACRILEX 2 MG GUM BUC PRN ×4 (06:15→20:20)
[2020-05-21] MEDS: PRENATAL VITAMINS W/ FOLIC ACID TABLET (FP) PO SCH (09:16)
[2020-05-21] MEDS: NICOTINE 21 MG/24 HOURS TOPICAL PATCH TD SCH (09:16)
[2020-05-21] MEDS: BUPRENORPHINE HCL/NALOXONE 12 MG-3 MG SL FILM PACKET SL SCH (09:16)
[2020-05-21] MEDS: HYDROCORTISONE 1% TOPICAL OINT 30 GM TUBE TP SCH ×2 (09:17→21:10)
[2020-05-21] MEDS: QUEtiapine FUMARATE 100 MG TABLET (FP) PO SCH (21:09)
[2020-05-21] MEDS: MELATONIN 5 MG TABLETS PO SCH (21:10)
[2020-05-21] MEDS: THIAMINE HCL 100 MG TABLET (FP) PO SCH (21:10)
[2020-05-21] MEDS: IBUPROFEN 400 MG TABLET (FP) PO PRN (21:12)
[2020-05-22] MEDS: hydrOXYzine PAMOATE 25 MG CAPSULE (FP) PO SCH ×5 (06:16→21:57)
[2020-05-22] MEDS: NICOTINE POLACRILEX 2 MG GUM BUC PRN ×4 (06:17→21:59)
[2020-05-22] MEDS: PRENATAL VITAMINS W/ FOLIC ACID TABLET (FP) PO SCH (09:22)
[2020-05-22] MEDS: HYDROCORTISONE 1% TOPICAL OINT 30 GM TUBE TP SCH ×2 (09:22→21:56)
[2020-05-22] MEDS: BUPRENORPHINE HCL/NALOXONE 12 MG-3 MG SL FILM PACKET SL SCH (09:22)
[2020-05-22] MEDS: NICOTINE 21 MG/24 HOURS TOPICAL PATCH TD SCH (09:23)
[2020-05-22] MEDS: IBUPROFEN 400 MG TABLET (FP) PO PRN (09:25)
[2020-05-22] MEDS: THIAMINE HCL 100 MG TABLET (FP) PO SCH (21:57)
[2020-05-22] MEDS: QUEtiapine FUMARATE 100 MG TABLET (FP) PO SCH (21:57)
[2020-05-22] MEDS: MELATONIN 5 MG TABLETS PO SCH (21:57)
[2020-05-23] MEDS: ACETAMINOPHEN 325 MG TABLET (FP) PO PRN ×2 (06:21→22:02)
[2020-05-23] MEDS: hydrOXYzine PAMOATE 25 MG CAPSULE (FP) PO SCH ×5 (06:21→22:01)
[2020-05-23] MEDS: NICOTINE POLACRILEX 2 MG GUM BUC PRN ×3 (06:22→22:03)
[2020-05-23 07:08] VITALS: PULSE 62; TEMP 97.3
[2020-05-23] MEDS: NICOTINE 21 MG/24 HOURS TOPICAL PATCH TD SCH (10:17)
[2020-05-23] MEDS: BUPRENORPHINE HCL/NALOXONE 12 MG-3 MG SL FILM PACKET SL SCH (10:17)
[2020-05-23] MEDS: HYDROCORTISONE 1% TOPICAL OINT 30 GM TUBE TP SCH ×2 (10:17→22:01)
[2020-05-23] MEDS: PRENATAL VITAMINS W/ FOLIC ACID TABLET (FP) PO SCH (10:17)
--- NOTE | 2020-05-23 13:05 | PN ---
S Progress Note Note: Patient is scheduled for discharge tomorrow. Script for 30 days supply of Seroquel 100 mg/hs will be electronically transmitted to [facility], [address],[place] [address]
[2020-05-23] MEDS: MELATONIN 5 MG TABLETS PO SCH (22:01)
[2020-05-23] MEDS: THIAMINE HCL 100 MG TABLET (FP) PO SCH (22:01)
[2020-05-23] MEDS: QUEtiapine FUMARATE 100 MG TABLET (FP) PO SCH (22:02)
[2020-05-24] MEDS: NICOTINE POLACRILEX 2 MG GUM BUC PRN (06:17)
[2020-05-24] MEDS: hydrOXYzine PAMOATE 25 MG CAPSULE (FP) PO SCH ×2 (06:17→09:59)
[2020-05-24 07:17] VITALS: BP 151/88
--- NOTE | 2020-05-24 09:03 | DS ---
[facility] Rehab Discharge Summary - [facility] Rehab Discharge Summary Admission Date: 05/10/20 Discharge Date: 05/24/20 - History Present History: Cocaine dependence, Opioid dependence Pertinent Past History: HTN(not on med) GERD(not on med) Hep C Obesity Use of Cane for Ambulation Depression - Discharge Physical Exam Vital Signs: Vital Signs Temperature 97.3 F L 05/24/20 06:10 Pulse Rate 62 05/24/20 06:10 Respiratory Rate 18 05/24/20 06:10 Blood Pressure 151/88 05/24/20 06:10 O2 Sat by Pulse Oximetry (%) 95 05/24/20 06:10 Alert o x 3 nad,no resp difficulty oob ambulating with steady gait/use of cane Active FROM all ext. Pertinent Admission Physical Exam Findings: Laboratory Tests 05/10/20 05/10/20 05/10/20 11:30 11:30 11:30 WBC 5.4 RBC 4.36 Hgb 12.7 Hct 38.4 MCV 88.0 MCH 29.1 MCHC 33.0 RDW 13.6 Plt Count 213 D MPV 10.2 Sickle Cell Screen Negative Sodium 140 Potassium 4.5 Chloride 103 Carbon Dioxide 29 Anion Gap 8 BUN 16.4 Creatinine 1.0 Est GFR (CKD-EPI)AfAm 99.15 Est GFR (CKD-EPI)NonAf 85.55 Random Glucose 111 H Calcium 9.5 Total Bilirubin 0.5 AST 29 ALT 45 Alkaline Phosphatase 53 Total Protein 8.7 H Albumin 4.0 Urine Color Urine Appearance Urine pH Ur Specific [place] Urine Protein Urine Glucose (UA) Urine Ketones Urine Blood Urine Nitrite Urine Bilirubin Urine Urobilinogen Ur Leukocyte Esterase Urine WBC (Auto) Urine RBC (Auto) Urine Casts (Auto) U Epithel Cells (Auto) Urine Bacteria (Auto) Syphilis Serology Non-reactive 05/12/20 08:10 WBC RBC Hgb Hct MCV MCH MCHC RDW Plt Count MPV Sickle Cell Screen Sodium Potassium Chloride Carbon Dioxide Anion Gap BUN Creatinine Est GFR (CKD-EPI)AfAm Est GFR (CKD-EPI)NonAf Random Glucose Calcium Total Bilirubin AST ALT Alkaline Phosphatase Total Protein Albumin Urine Color Yellow Urine Appearance Clear Urine pH 6.0 Ur Specific [place] 1.020 Urine Protein Negative Urine Glucose (UA) Negative Urine Ketones Negative Urine Blood Negative Urine Nitrite Negative Urine Bilirubin Negative Urine Urobilinogen 0.2 Ur Leukocyte Esterase Negative Urine WBC (Auto) 7 Urine RBC (Auto) 12 Urine Casts (Auto) 1 U Epithel Cells (Auto) 3 Urine Bacteria (Auto) 279 Syphilis Serology - Treatment Discharge Condition: Discharge condition good Hospital Course: Completed Rehab and referred to CD aftercare to [facility] OP - Medication Discharge Medications: Ambulatory Orders Quetiapine Fumarate [Seroquel -] 100 mg PO HS #30 tablet 05/23/20 Buprenorphine/Naloxone HCl [Suboxone 12 mg-3 mg Sl Film Packet] 12 mg PO DAILY #7 film MDD 1 05/24/20 - Medication-Assisted Treatment (MAT) Medication-Assisted Treatment (MAT): No Medication Prescribed: Suboxone MAT Follow-up Referral: [facility] Suboxone MAT program - Discharge Instructions Diet, activity, other medical instructions: Diet:Regular Activity:oob ad licha Other medical instructions:follow up with CD aftercare referral as scheduled. - Diagnosis (1) Cocaine dependence Status: Chronic Qualifiers: Substance use status: uncomplicated Qualified Code(s): F14.20 - Cocaine dependence, uncomplicated (2) Nicotine dependence Status: Chronic Qualifiers: Nicotine product type: cigarettes Substance use status: uncomplicated Qualified Code(s): F17.210 - Nicotine dependence, cigarettes, uncomplicated (3) Corneal abnormality Status: Chronic (4) GERD (gastroesophageal reflux disease) Status: Chronic Qualifiers: Esophagitis presence: esophagitis presence not specified Qualified Code(s): K21.9 - Gastro-esophageal reflux disease without esophagitis (5) HTN (hypertension) Status: Chronic Qualifiers: Hypertension type: essential hypertension Qualified Code(s): I10 - Essential (primary) hypertension (6) Lower back pain Status: Chronic Qualifiers: Chronicity: chronic Back pain laterality: unspecified Sciatica presence: unspecified whether sciatica present Qualified Code(s): M54.5 - Low back pain; G89.29 - Other chronic pain (7) Obesity (BMI 30.0-34.9) Status: Chronic (8) Hepatitis C Status: Resolved Qualifiers: Viral hepatitis chronicity: unspecified (9) Encounter for monitoring Suboxone maintenance therapy Status: Chronic (10) Use of cane as ambulatory aid Status: Chronic - Follow-up Referral Minutes to complete discharge: 20 - AMA Did Patient Leave Against Medical Advice: No Additional Comments: Courtesy Rx for Suboxone 12 mg sl daily #7 electronically sent to pt's home pharmacy at [facility] to cotton picker after discharge. Pt to follow up with [facility] Suboxone program for continued management.
[2020-05-24] MEDS: PRENATAL VITAMINS W/ FOLIC ACID TABLET (FP) PO SCH (09:58)
[2020-05-24] MEDS: BUPRENORPHINE HCL/NALOXONE 12 MG-3 MG SL FILM PACKET SL SCH (09:58)
[2020-05-24] MEDS: NICOTINE 21 MG/24 HOURS TOPICAL PATCH TD SCH (09:59)
[2020-05-24] MEDS: HYDROCORTISONE 1% TOPICAL OINT 30 GM TUBE TP SCH (09:59)
== END 2020-05-24 11:27 | disposition home or self-care (01) | DRG 772 ==
LOC: YASAS 10:07 → Y3E 12:07 → Y5N 05-11 14:25
PROVIDERS: ADMIT Allergy & Immunology; ATTEND Allergy & Immunology
PROC: HZ42ZZZ Group Counseling for Substance Abuse Treatment, Cognitive-Behavioral (ICD-10-PCS; principal; 2020-05-10)
DX: F11.20 Opioid dependence, uncomplicated (principal); F14.20 Cocaine dependence, uncomplicated; F17.210 Nicotine dependence, cigarettes, uncomplicated; F25.9 Schizoaffective disorder, unspecified; F43.10 Post-traumatic stress disorder, unspecified; F32.9 Major depressive disorder, single episode, unspecified; I10 Essential (primary) hypertension; H54.62 Unqualified visual loss, left eye, normal vision right eye; H18.9 Unspecified disorder of cornea; K21.9 Gastro-esophageal reflux disease without esophagitis; M54.5 Low back pain; L20.89 Other atopic dermatitis; E66.9 Obesity, unspecified; Z68.33 Body mass index [BMI] 33.0-33.9, adult; Z51.81 Encounter for therapeutic drug level monitoring; Z79.899 Other long term (current) drug therapy; Z99.89 Dependence on other enabling machines and devices
CPT/HCPCS: 36415; 80053; 81003; 85027; 85660; 86780; 90732; G0009

== ENCOUNTER 2020-08-06 13:23 | Inpatient (IN) | payer OTHER ==
[2020-08-06 14:59] VITALS: BMI 37.1
[2020-08-06] MEDS ORDERED: MAG HYDROX/AL HYDROX/SIMETH 30 ML UNIT-DOSE CUP PO PRN (15:32)
[2020-08-06] MEDS ORDERED: MAGNESIUM HYDROX 2400MG/30ML ORAL SUSPENSION 30 ML CUP PO PRN (15:32)
[2020-08-06] MEDS ORDERED: guaiFENesin 200 MG/10 ML 10 ML UNIT-DOSE CUPS PO PRN (15:32)
[2020-08-06] MEDS ORDERED: LOPERAMIDE HCL 2 MG CAPSULE PO PRN (15:32)
[2020-08-06] MEDS ORDERED: P-EPHED 60MG/TRIPROLIDI 2.5MG TABLET PO PRN (15:32)
[2020-08-06] MEDS ORDERED: MAGNESIUM CITRATE 300 ML BOTTLE PO PRN (15:32)
[2020-08-06] MEDS ORDERED: TUBERCULIN PPD 5 TU/0.1ML VIAL ID ONE (17:10)
[2020-08-06] MEDS: hydrOXYzine PAMOATE 25 MG CAPSULE (FP) PO SCH ×2 (17:17→22:06)
[2020-08-06] MEDS: ACETAMINOPHEN 325 MG TABLET (FP) PO PRN (17:17)
[2020-08-06] MEDS ORDERED: BUPRENORPHINE/NALOXONE 2 MG/0.5 MG FILM PACKET SL ONE (20:24)
[2020-08-06] MEDS: THIAMINE HCL 100 MG TABLET (FP) PO SCH (22:05)
[2020-08-06] MEDS: MELATONIN 5 MG TABLETS PO SCH (22:05)
[2020-08-07] MEDS: ACETAMINOPHEN 325 MG TABLET (FP) PO PRN ×3 (02:03→19:16)
[2020-08-07] MEDS: NICOTINE POLACRILEX 2 MG GUM BC PRN ×5 (02:06→19:17)
[2020-08-07] MEDS ORDERED: BUPRENORPHINE/NALOXONE 2 MG/0.5 MG FILM PACKET SL SCH (06:00)
[2020-08-07] MEDS: BUPRENORPHINE/NALOXONE 2 MG/0.5 MG FILM PACKET SL SCH (06:32)
[2020-08-07] MEDS: hydrOXYzine PAMOATE 25 MG CAPSULE (FP) PO SCH ×5 (06:33→22:50)
[2020-08-07] MEDS: PRENATAL VITAMINS W/ FOLIC ACID TABLET (FP) PO SCH (09:43)
[2020-08-07] MEDS: NICOTINE 14 MG/24 HOURS TOPICAL PATCH TD SCH (09:43)
[2020-08-07 10:48] LABS: POTASSIUM 4.3 mmol/L (3.5-5.1)
[2020-08-07 10:51] LABS: CALCIUM 9.3 mg/dL (8.5-10.1)
[2020-08-07 10:52] LABS: ALBUMIN 3.9 g/dl (3.4-5.0); BLOOD UREA NITROGEN 24.9 mg/dL (7-18)
[2020-08-07 10:55] LABS: CREATININE 1.1 mg/dL (0.55-1.3)
[2020-08-07 10:57] LABS: BILIRUBIN,TOTAL 0.8 mg/dL (0.2-1); TOT PROT 7.8 g/dl (6.4-8.2)
[2020-08-07 11:11] LABS: SICKLE CELL SCREEN NEGATIVE (NEGATIVE)
[2020-08-07 11:13] LABS: HEMATOCRIT 41.8 % (35.4-49); MCH 29.6 pg (25.7-33.7); MCHC 33.5 g/dl (32.0-35.9); MEAN CELL VOLUME 88.2 fl (80-96); MEAN PLT VOLUME 9.8 fl (7.5-11.1); PLATELET COUNT 181 K/MM3 (134-434); RBC 4.74 M/mm3 (4.00-5.60); RDW 13.9 % (11.9-15.9); WHITE BLOOD COUNT 7.2 K/mm3 (4.0-10.0)
[2020-08-07] MEDS: THIAMINE HCL 100 MG TABLET (FP) PO SCH (23:25)
[2020-08-07] MEDS: MELATONIN 5 MG TABLETS PO SCH (23:35)
[2020-08-08] MEDS: hydrOXYzine PAMOATE 25 MG CAPSULE (FP) PO SCH ×5 (06:24→21:27)
[2020-08-08] MEDS: BUPRENORPHINE/NALOXONE 2 MG/0.5 MG FILM PACKET SL SCH (06:24)
[2020-08-08] MEDS: ACETAMINOPHEN 325 MG TABLET (FP) PO PRN ×2 (06:24→21:27)
[2020-08-08] MEDS: NICOTINE POLACRILEX 2 MG GUM BC PRN ×3 (06:25→12:19)
[2020-08-08] MEDS: NICOTINE 14 MG/24 HOURS TOPICAL PATCH TD SCH (10:02)
[2020-08-08] MEDS: PRENATAL VITAMINS W/ FOLIC ACID TABLET (FP) PO SCH (10:02)
[2020-08-08] MEDS: MELATONIN 5 MG TABLETS PO SCH (21:27)
[2020-08-08] MEDS: THIAMINE HCL 100 MG TABLET (FP) PO SCH (21:27)
[2020-08-09] MEDS: hydrOXYzine PAMOATE 25 MG CAPSULE (FP) PO SCH ×5 (06:53→21:38)
[2020-08-09] MEDS: BUPRENORPHINE/NALOXONE 2 MG/0.5 MG FILM PACKET SL SCH (06:53)
[2020-08-09] MEDS: NICOTINE 14 MG/24 HOURS TOPICAL PATCH TD SCH (10:01)
[2020-08-09] MEDS: PRENATAL VITAMINS W/ FOLIC ACID TABLET (FP) PO SCH (10:01)
[2020-08-09] MEDS: NICOTINE POLACRILEX 2 MG GUM BC PRN ×2 (14:54→17:51)
[2020-08-09] MEDS: IBUPROFEN 400 MG TABLET (FP) PO PRN (17:42)
[2020-08-09] MEDS: THIAMINE HCL 100 MG TABLET (FP) PO SCH (21:38)
[2020-08-09] MEDS: MELATONIN 5 MG TABLETS PO SCH (21:38)
[2020-08-10] MEDS: BUPRENORPHINE/NALOXONE 2 MG/0.5 MG FILM PACKET SL SCH (06:27)
[2020-08-10] MEDS: ACETAMINOPHEN 325 MG TABLET (FP) PO PRN ×2 (06:27→18:13)
[2020-08-10] MEDS: hydrOXYzine PAMOATE 25 MG CAPSULE (FP) PO SCH ×5 (06:27→21:49)
[2020-08-10] MEDS: PRENATAL VITAMINS W/ FOLIC ACID TABLET (FP) PO SCH (09:38)
[2020-08-10] MEDS: NICOTINE POLACRILEX 2 MG GUM BC PRN ×4 (09:39→21:50)
[2020-08-10] MEDS: NICOTINE 14 MG/24 HOURS TOPICAL PATCH TD SCH (09:40)
[2020-08-10] MEDS: METHOCARBAMOL 500 MG TABLET PO PRN (13:45)
[2020-08-10 14:58] LABS: PH,URINE 5.5 (5.0-8.0); URINE APPEARANCE CLEAR; URINE BILIRUBIN NEGATIVE (NEGATIVE); URINE COLOR YELLOW; URINE GLUCOSE (UA) NEGATIVE (NEGATIVE); URINE KETONE NEGATIVE (NEGATIVE); URINE LEUK ESTERASE NEGATIVE (NEGATIVE); URINE NITRITE NEGATIVE (NEGATIVE); URINE PROTEIN NEGATIVE (NEGATIVE); URINE UROBILINOGEN 0.2 mg/dL (0.2-1.0)
[2020-08-10] MEDS: MELATONIN 5 MG TABLETS PO SCH (21:49)
[2020-08-10] MEDS: THIAMINE HCL 100 MG TABLET (FP) PO SCH (21:49)
[2020-08-11] MEDS: hydrOXYzine PAMOATE 25 MG CAPSULE (FP) PO SCH ×5 (06:18→21:30)
[2020-08-11] MEDS: BUPRENORPHINE/NALOXONE 2 MG/0.5 MG FILM PACKET SL SCH (06:19)
[2020-08-11] MEDS: ACETAMINOPHEN 325 MG TABLET (FP) PO PRN ×3 (06:19→21:30)
[2020-08-11] MEDS: NICOTINE POLACRILEX 2 MG GUM BC PRN ×3 (06:20→21:31)
[2020-08-11] MEDS: NICOTINE 14 MG/24 HOURS TOPICAL PATCH TD SCH (09:43)
[2020-08-11] MEDS: PRENATAL VITAMINS W/ FOLIC ACID TABLET (FP) PO SCH (09:43)
[2020-08-11] MEDS: THIAMINE HCL 100 MG TABLET (FP) PO SCH (21:30)
[2020-08-11] MEDS: MELATONIN 5 MG TABLETS PO SCH (21:30)
[2020-08-11] MEDS: METHOCARBAMOL 500 MG TABLET PO PRN (21:30)
[2020-08-12] MEDS: hydrOXYzine PAMOATE 25 MG CAPSULE (FP) PO SCH ×5 (06:16→21:29)
[2020-08-12] MEDS: BUPRENORPHINE/NALOXONE 2 MG/0.5 MG FILM PACKET SL SCH (06:16)
[2020-08-12] MEDS: ACETAMINOPHEN 325 MG TABLET (FP) PO PRN ×2 (06:16→21:29)
[2020-08-12] MEDS: NICOTINE 14 MG/24 HOURS TOPICAL PATCH TD SCH (09:52)
[2020-08-12] MEDS: PRENATAL VITAMINS W/ FOLIC ACID TABLET (FP) PO SCH (09:52)
[2020-08-12] MEDS: NICOTINE POLACRILEX 2 MG GUM BC PRN ×2 (16:09→21:30)
[2020-08-12] MEDS: METHOCARBAMOL 500 MG TABLET PO PRN (21:29)
[2020-08-12] MEDS: MELATONIN 5 MG TABLETS PO SCH (21:29)
[2020-08-12] MEDS: THIAMINE HCL 100 MG TABLET (FP) PO SCH (21:29)
[2020-08-13] MEDS: ACETAMINOPHEN 325 MG TABLET (FP) PO PRN ×3 (06:10→21:29)
[2020-08-13] MEDS: BUPRENORPHINE/NALOXONE 2 MG/0.5 MG FILM PACKET SL SCH (06:11)
[2020-08-13] MEDS: hydrOXYzine PAMOATE 25 MG CAPSULE (FP) PO SCH ×5 (06:11→21:29)
[2020-08-13] MEDS: PRENATAL VITAMINS W/ FOLIC ACID TABLET (FP) PO SCH (09:07)
[2020-08-13] MEDS: NICOTINE POLACRILEX 2 MG GUM BC PRN (09:07)
[2020-08-13] MEDS: NICOTINE 14 MG/24 HOURS TOPICAL PATCH TD SCH (09:07)
[2020-08-13] MEDS: THIAMINE HCL 100 MG TABLET (FP) PO SCH (21:29)
[2020-08-13] MEDS: MELATONIN 5 MG TABLETS PO SCH (21:29)
[2020-08-13] MEDS: METHOCARBAMOL 500 MG TABLET PO PRN (21:29)
[2020-08-14] MEDS: BUPRENORPHINE/NALOXONE 2 MG/0.5 MG FILM PACKET SL SCH (06:14)
[2020-08-14] MEDS: hydrOXYzine PAMOATE 25 MG CAPSULE (FP) PO SCH ×5 (06:14→21:48)
[2020-08-14] MEDS: IBUPROFEN 400 MG TABLET (FP) PO PRN (06:30)
[2020-08-14] MEDS: METHOCARBAMOL 500 MG TABLET PO PRN ×2 (06:31→21:48)
[2020-08-14] MEDS: PRENATAL VITAMINS W/ FOLIC ACID TABLET (FP) PO SCH (09:59)
[2020-08-14] MEDS: NICOTINE 14 MG/24 HOURS TOPICAL PATCH TD SCH (09:59)
[2020-08-14] MEDS: NICOTINE POLACRILEX 2 MG GUM BC PRN (10:00)
[2020-08-14] MEDS: THIAMINE HCL 100 MG TABLET (FP) PO SCH (21:48)
[2020-08-14] MEDS: MELATONIN 5 MG TABLETS PO SCH (21:48)
[2020-08-15] MEDS: ACETAMINOPHEN 325 MG TABLET (FP) PO PRN ×3 (06:45→21:57)
[2020-08-15] MEDS: hydrOXYzine PAMOATE 25 MG CAPSULE (FP) PO SCH ×5 (06:45→21:58)
[2020-08-15] MEDS: METHOCARBAMOL 500 MG TABLET PO PRN ×2 (06:46→21:58)
[2020-08-15] MEDS: BUPRENORPHINE/NALOXONE 2 MG/0.5 MG FILM PACKET SL SCH (06:46)
[2020-08-15] MEDS: PRENATAL VITAMINS W/ FOLIC ACID TABLET (FP) PO SCH (09:46)
[2020-08-15] MEDS: NICOTINE POLACRILEX 2 MG GUM BC PRN (09:47)
[2020-08-15] MEDS: NICOTINE 14 MG/24 HOURS TOPICAL PATCH TD SCH (09:47)
[2020-08-15 12:29] LABS: BASO % 0.6 % (0-2.0); EOS % 2.7 % (0-4.5); HEMATOCRIT 38.5 % (35.4-49); HEMOGLOBIN 13.1 GM/dL (11.7-16.9); LYMPH % 12.1 % (8-40); MCH 29.7 pg (25.7-33.7); MCHC 33.9 g/dl (32.0-35.9); MEAN CELL VOLUME 87.7 fl (80-96); MEAN PLT VOLUME 10.6 fl (7.5-11.1); MONO % 15.7 % (3.8-10.2); NEUT % 68.9 % (42.8-82.8); PLATELET COUNT 110 K/MM3 (134-434); RBC 4.39 M/mm3 (4.00-5.60); RDW 13.5 % (11.9-15.9); WHITE BLOOD COUNT 4.4 K/mm3 (4.0-10.0)
[2020-08-15 12:33] LABS: EPI CELLS 2 /uL (0-25.1); HYALINE CASTS 2 /uL (0-3.1); URINE APPEARANCE TURBID; URINE BILIRUBIN 1+ (NEGATIVE); URINE COLOR ORANGE; URINE GLUCOSE (UA) NEGATIVE (NEGATIVE); URINE KETONE NEGATIVE (NEGATIVE); URINE LEUK ESTERASE NEGATIVE (NEGATIVE); URINE NITRITE POSITIVE (NEGATIVE); URINE PROTEIN TRACE (NEGATIVE); URINE RBC 6 /uL (0-23.9); URINE WBC 6 /uL (0-25.8)
[2020-08-15 12:34] LABS: ALBUMIN 3.5 g/dl (3.4-5.0); BLOOD UREA NITROGEN 18.8 mg/dL (7-18); CALCIUM 8.4 mg/dL (8.5-10.1)
[2020-08-15 12:37] LABS: CREATININE 1.2 mg/dL (0.55-1.3)
[2020-08-15 12:38] LABS: TOT PROT 7.2 g/dl (6.4-8.2)
[2020-08-15] MEDS: NITROFURANTOIN MACROCRYSTAL 50 MG CAPSULE (FP) PO SCH ×2 (13:35→20:07)
[2020-08-15 14:37] LABS: ANISOCYTOSIS 0; MACROCYTOSIS 0; PLATELET ESTIMATE DECREASED
[2020-08-15] MEDS: MELATONIN 5 MG TABLETS PO SCH (21:56)
[2020-08-15] MEDS: THIAMINE HCL 100 MG TABLET (FP) PO SCH (21:57)
[2020-08-16] MEDS: NITROFURANTOIN MACROCRYSTAL 50 MG CAPSULE (FP) PO SCH ×4 (01:57→18:00)
[2020-08-16] MEDS: hydrOXYzine PAMOATE 25 MG CAPSULE (FP) PO SCH ×5 (06:45→21:44)
[2020-08-16] MEDS: ACETAMINOPHEN 325 MG TABLET (FP) PO PRN (06:45)
[2020-08-16] MEDS: BUPRENORPHINE/NALOXONE 2 MG/0.5 MG FILM PACKET SL SCH (06:46)
[2020-08-16] MEDS: PRENATAL VITAMINS W/ FOLIC ACID TABLET (FP) PO SCH (10:07)
[2020-08-16] MEDS: NICOTINE 14 MG/24 HOURS TOPICAL PATCH TD SCH (10:08)
[2020-08-16] MEDS: METHOCARBAMOL 500 MG TABLET PO PRN ×2 (10:09→21:44)
[2020-08-16] MEDS: IBUPROFEN 400 MG TABLET (FP) PO PRN ×2 (10:10→21:44)
[2020-08-16] MEDS: NICOTINE POLACRILEX 2 MG GUM BC PRN (10:11)
[2020-08-16] MEDS: MELATONIN 5 MG TABLETS PO SCH (21:44)
[2020-08-16] MEDS: THIAMINE HCL 100 MG TABLET (FP) PO SCH (21:44)
[2020-08-17] MEDS: NITROFURANTOIN MACROCRYSTAL 50 MG CAPSULE (FP) PO SCH ×5 (00:15→23:30)
[2020-08-17] MEDS: ACETAMINOPHEN 325 MG TABLET (FP) PO PRN (06:20)
[2020-08-17] MEDS: hydrOXYzine PAMOATE 25 MG CAPSULE (FP) PO SCH ×5 (06:20→21:24)
[2020-08-17] MEDS: BUPRENORPHINE/NALOXONE 2 MG/0.5 MG FILM PACKET SL SCH (06:21)
[2020-08-17] MEDS: IBUPROFEN 400 MG TABLET (FP) PO PRN ×2 (09:40→21:24)
[2020-08-17] MEDS: METHOCARBAMOL 500 MG TABLET PO PRN (09:40)
[2020-08-17] MEDS: PRENATAL VITAMINS W/ FOLIC ACID TABLET (FP) PO SCH (09:40)
[2020-08-17] MEDS: NICOTINE 14 MG/24 HOURS TOPICAL PATCH TD SCH (09:40)
[2020-08-17] MEDS: NICOTINE POLACRILEX 2 MG GUM BC PRN ×2 (09:42→21:26)
[2020-08-17] MEDS: MELATONIN 5 MG TABLETS PO SCH (21:24)
[2020-08-17] MEDS: THIAMINE HCL 100 MG TABLET (FP) PO SCH (21:24)
[2020-08-18] MEDS: BUPRENORPHINE/NALOXONE 2 MG/0.5 MG FILM PACKET SL SCH (06:14)
[2020-08-18] MEDS: hydrOXYzine PAMOATE 25 MG CAPSULE (FP) PO SCH ×5 (06:14→21:25)
[2020-08-18] MEDS: ACETAMINOPHEN 325 MG TABLET (FP) PO PRN (06:14)
[2020-08-18] MEDS: NITROFURANTOIN MACROCRYSTAL 50 MG CAPSULE (FP) PO SCH ×3 (06:16→17:29)
[2020-08-18] MEDS: NICOTINE 14 MG/24 HOURS TOPICAL PATCH TD SCH (09:43)
[2020-08-18] MEDS: PRENATAL VITAMINS W/ FOLIC ACID TABLET (FP) PO SCH (09:43)
[2020-08-18] MEDS: METHOCARBAMOL 500 MG TABLET PO PRN ×2 (09:44→21:25)
[2020-08-18] MEDS: IBUPROFEN 400 MG TABLET (FP) PO PRN (09:45)
[2020-08-18] MEDS: NICOTINE POLACRILEX 2 MG GUM BC PRN (09:47)
[2020-08-18] MEDS: MELATONIN 5 MG TABLETS PO SCH (21:25)
[2020-08-18] MEDS: THIAMINE HCL 100 MG TABLET (FP) PO SCH (21:25)
[2020-08-19] MEDS: IBUPROFEN 400 MG TABLET (FP) PO PRN (06:21)
[2020-08-19] MEDS: BUPRENORPHINE/NALOXONE 2 MG/0.5 MG FILM PACKET SL SCH (06:21)
[2020-08-19] MEDS: hydrOXYzine PAMOATE 25 MG CAPSULE (FP) PO SCH ×2 (06:21→09:37)
[2020-08-19] MEDS: METHOCARBAMOL 500 MG TABLET PO PRN ×2 (06:22→22:06)
[2020-08-19] MEDS: PRENATAL VITAMINS W/ FOLIC ACID TABLET (FP) PO SCH (09:36)
[2020-08-19] MEDS: NICOTINE 14 MG/24 HOURS TOPICAL PATCH TD SCH (09:36)
[2020-08-19] MEDS ORDERED: NITROFURANTOIN MACROCRYSTAL 50 MG CAPSULE (FP) PO SCH (14:00)
[2020-08-19] MEDS: NITROFURANTOIN MACROCRYSTAL 50 MG CAPSULE (FP) PO SCH (17:35)
[2020-08-19] MEDS: hydrOXYzine PAMOATE 25 MG CAPSULE (FP) PO PRN (17:35)
[2020-08-19] MEDS: NICOTINE POLACRILEX 2 MG GUM BC PRN (17:36)
[2020-08-19] MEDS: MELATONIN 5 MG TABLETS PO SCH (22:06)
[2020-08-19] MEDS: THIAMINE HCL 100 MG TABLET (FP) PO SCH (22:06)
[2020-08-20] MEDS: NITROFURANTOIN MACROCRYSTAL 50 MG CAPSULE (FP) PO SCH ×4 (00:12→18:09)
[2020-08-20] MEDS: BUPRENORPHINE/NALOXONE 2 MG/0.5 MG FILM PACKET SL SCH (06:30)
[2020-08-20] MEDS: IBUPROFEN 400 MG TABLET (FP) PO PRN (06:30)
[2020-08-20] MEDS: METHOCARBAMOL 500 MG TABLET PO PRN ×2 (06:30→22:23)
[2020-08-20] MEDS: NICOTINE 14 MG/24 HOURS TOPICAL PATCH TD SCH (09:38)
[2020-08-20] MEDS: NICOTINE POLACRILEX 2 MG GUM BC PRN ×2 (09:38→22:24)
[2020-08-20] MEDS: PRENATAL VITAMINS W/ FOLIC ACID TABLET (FP) PO SCH (09:38)
[2020-08-20] MEDS: ACETAMINOPHEN 325 MG TABLET (FP) PO PRN (18:11)
[2020-08-20 19:57] LABS: PH,URINE 5.5 (5.0-8.0); URINE APPEARANCE TURBID; URINE BILIRUBIN NEGATIVE (NEGATIVE); URINE COLOR YELLOW; URINE GLUCOSE (UA) NEGATIVE (NEGATIVE); URINE KETONE NEGATIVE (NEGATIVE); URINE LEUK ESTERASE NEGATIVE (NEGATIVE); URINE NITRITE NEGATIVE (NEGATIVE); URINE PROTEIN NEGATIVE (NEGATIVE)
[2020-08-20] MEDS: THIAMINE HCL 100 MG TABLET (FP) PO SCH (22:21)
[2020-08-20] MEDS: MELATONIN 5 MG TABLETS PO SCH (22:21)
[2020-08-21] MEDS: NITROFURANTOIN MACROCRYSTAL 50 MG CAPSULE (FP) PO SCH ×5 (00:24→23:15)
[2020-08-21] MEDS: BUPRENORPHINE/NALOXONE 2 MG/0.5 MG FILM PACKET SL SCH (06:09)
[2020-08-21] MEDS: ACETAMINOPHEN 325 MG TABLET (FP) PO PRN (06:10)
[2020-08-21] MEDS: hydrOXYzine PAMOATE 25 MG CAPSULE (FP) PO PRN ×3 (06:11→21:13)
[2020-08-21 09:39] LABS: POTASSIUM 4.3 mmol/L (3.5-5.1)
[2020-08-21] MEDS: PRENATAL VITAMINS W/ FOLIC ACID TABLET (FP) PO SCH (09:40)
[2020-08-21] MEDS: NICOTINE 14 MG/24 HOURS TOPICAL PATCH TD SCH (09:41)
[2020-08-21 09:42] LABS: BASO % 0.5 % (0-2.0); HEMATOCRIT 38.4 % (35.4-49); HEMOGLOBIN 12.7 GM/dL (11.7-16.9); LYMPH % 58.4 % (8-40); MCH 29.1 pg (25.7-33.7); MCHC 33.2 g/dl (32.0-35.9); MEAN CELL VOLUME 87.6 fl (80-96); MEAN PLT VOLUME 11.6 fl (7.5-11.1); MONO % 9.4 % (3.8-10.2); NEUT % 28.7 % (42.8-82.8); PLATELET COUNT 126 K/MM3 (134-434); RBC 4.38 M/mm3 (4.00-5.60); RDW 14.1 % (11.9-15.9); WHITE BLOOD COUNT 5.7 K/mm3 (4.0-10.0)
[2020-08-21 09:48] LABS: ALBUMIN 3.5 g/dl (3.4-5.0); BLOOD UREA NITROGEN 17.2 mg/dL (7-18); CALCIUM 8.7 mg/dL (8.5-10.1); INR 1.14 (0.83-1.09)
[2020-08-21 09:51] LABS: CREATININE 0.9 mg/dL (0.55-1.3)
[2020-08-21 09:54] LABS: BILIRUBIN,TOTAL 0.8 mg/dL (0.2-1); TOT PROT 6.9 g/dl (6.4-8.2)
[2020-08-21] MEDS: NICOTINE POLACRILEX 2 MG GUM BC PRN (17:52)
[2020-08-21] MEDS: METHOCARBAMOL 500 MG TABLET PO PRN (17:54)
[2020-08-21] MEDS: MELATONIN 5 MG TABLETS PO SCH (21:12)
[2020-08-21] MEDS: THIAMINE HCL 100 MG TABLET (FP) PO SCH (21:12)
[2020-08-22] MEDS: NITROFURANTOIN MACROCRYSTAL 50 MG CAPSULE (FP) PO SCH ×4 (06:20→23:05)
[2020-08-22] MEDS: hydrOXYzine PAMOATE 25 MG CAPSULE (FP) PO PRN ×2 (06:20→09:50)
[2020-08-22] MEDS: BUPRENORPHINE/NALOXONE 2 MG/0.5 MG FILM PACKET SL SCH (06:20)
[2020-08-22] MEDS: ACETAMINOPHEN 325 MG TABLET (FP) PO PRN (06:20)
[2020-08-22] MEDS: NICOTINE POLACRILEX 2 MG GUM BC PRN ×2 (09:50→21:42)
[2020-08-22] MEDS: PRENATAL VITAMINS W/ FOLIC ACID TABLET (FP) PO SCH (09:50)
[2020-08-22] MEDS: NICOTINE 14 MG/24 HOURS TOPICAL PATCH TD SCH (09:50)
[2020-08-22] MEDS: THIAMINE HCL 100 MG TABLET (FP) PO SCH (21:42)
[2020-08-22] MEDS: MELATONIN 5 MG TABLETS PO SCH (21:42)
[2020-08-23] MEDS: METHOCARBAMOL 500 MG TABLET PO PRN ×2 (06:42→21:17)
[2020-08-23] MEDS: IBUPROFEN 400 MG TABLET (FP) PO PRN ×2 (06:43→21:17)
[2020-08-23] MEDS: BUPRENORPHINE/NALOXONE 2 MG/0.5 MG FILM PACKET SL SCH (06:43)
[2020-08-23] MEDS: NICOTINE POLACRILEX 2 MG GUM BC PRN ×2 (10:02→21:19)
[2020-08-23] MEDS: NICOTINE 14 MG/24 HOURS TOPICAL PATCH TD SCH (10:02)
[2020-08-23] MEDS: PRENATAL VITAMINS W/ FOLIC ACID TABLET (FP) PO SCH (10:02)
[2020-08-23] MEDS: hydrOXYzine PAMOATE 25 MG CAPSULE (FP) PO PRN (21:17)
[2020-08-23] MEDS: THIAMINE HCL 100 MG TABLET (FP) PO SCH (21:17)
[2020-08-23] MEDS: MELATONIN 5 MG TABLETS PO SCH (21:17)
[2020-08-24] MEDS: ACETAMINOPHEN 325 MG TABLET (FP) PO PRN ×2 (06:16→21:43)
[2020-08-24] MEDS: BUPRENORPHINE/NALOXONE 2 MG/0.5 MG FILM PACKET SL SCH (06:16)
[2020-08-24] MEDS: hydrOXYzine PAMOATE 25 MG CAPSULE (FP) PO PRN ×4 (06:17→21:42)
[2020-08-24] MEDS: PRENATAL VITAMINS W/ FOLIC ACID TABLET (FP) PO SCH (09:35)
[2020-08-24] MEDS: NICOTINE POLACRILEX 2 MG GUM BC PRN ×2 (09:36→21:44)
[2020-08-24] MEDS: NICOTINE 14 MG/24 HOURS TOPICAL PATCH TD SCH (09:37)
[2020-08-24] MEDS: METHOCARBAMOL 500 MG TABLET PO PRN (21:42)
[2020-08-24] MEDS: THIAMINE HCL 100 MG TABLET (FP) PO SCH (21:42)
[2020-08-24] MEDS: MELATONIN 5 MG TABLETS PO SCH (21:42)
[2020-08-25] MEDS: ACETAMINOPHEN 325 MG TABLET (FP) PO PRN (06:31)
[2020-08-25] MEDS: BUPRENORPHINE/NALOXONE 2 MG/0.5 MG FILM PACKET SL SCH (06:31)
[2020-08-25] MEDS: hydrOXYzine PAMOATE 25 MG CAPSULE (FP) PO PRN ×3 (06:31→21:20)
[2020-08-25] MEDS: PRENATAL VITAMINS W/ FOLIC ACID TABLET (FP) PO SCH (09:51)
[2020-08-25] MEDS: NICOTINE 14 MG/24 HOURS TOPICAL PATCH TD SCH (09:52)
[2020-08-25] MEDS: NICOTINE POLACRILEX 2 MG GUM BC PRN ×2 (09:52→21:21)
[2020-08-25] MEDS: MELATONIN 5 MG TABLETS PO SCH (21:20)
[2020-08-25] MEDS: METHOCARBAMOL 500 MG TABLET PO PRN (21:20)
[2020-08-25] MEDS: THIAMINE HCL 100 MG TABLET (FP) PO SCH (21:20)
[2020-08-25] MEDS: IBUPROFEN 400 MG TABLET (FP) PO PRN (21:20)
[2020-08-26] MEDS: BUPRENORPHINE/NALOXONE 2 MG/0.5 MG FILM PACKET SL SCH (06:37)
[2020-08-26] MEDS: IBUPROFEN 400 MG TABLET (FP) PO PRN (06:37)
[2020-08-26] MEDS: METHOCARBAMOL 500 MG TABLET PO PRN ×2 (06:37→22:18)
[2020-08-26] MEDS: PRENATAL VITAMINS W/ FOLIC ACID TABLET (FP) PO SCH (09:40)
[2020-08-26] MEDS: hydrOXYzine PAMOATE 25 MG CAPSULE (FP) PO PRN (09:40)
[2020-08-26] MEDS: NICOTINE 14 MG/24 HOURS TOPICAL PATCH TD SCH (09:41)
[2020-08-26] MEDS: NICOTINE POLACRILEX 2 MG GUM BC PRN ×2 (09:41→22:19)
[2020-08-26] MEDS: THIAMINE HCL 100 MG TABLET (FP) PO SCH (23:17)
[2020-08-26] MEDS: MELATONIN 5 MG TABLETS PO SCH (23:17)
[2020-08-27] MEDS: BUPRENORPHINE/NALOXONE 2 MG/0.5 MG FILM PACKET SL SCH (06:21)
[2020-08-27] MEDS: hydrOXYzine PAMOATE 25 MG CAPSULE (FP) PO PRN ×3 (06:21→21:35)
[2020-08-27] MEDS: ACETAMINOPHEN 325 MG TABLET (FP) PO PRN ×2 (06:21→21:34)
[2020-08-27] MEDS: NICOTINE POLACRILEX 2 MG GUM BC PRN ×2 (06:21→10:08)
[2020-08-27] MEDS: PRENATAL VITAMINS W/ FOLIC ACID TABLET (FP) PO SCH (10:07)
[2020-08-27] MEDS: NICOTINE 14 MG/24 HOURS TOPICAL PATCH TD SCH (10:08)
[2020-08-27] MEDS: MELATONIN 5 MG TABLETS PO SCH (21:33)
[2020-08-27] MEDS: THIAMINE HCL 100 MG TABLET (FP) PO SCH (21:33)
[2020-08-27] MEDS: METHOCARBAMOL 500 MG TABLET PO PRN (21:35)
[2020-08-28] MEDS: METHOCARBAMOL 500 MG TABLET PO PRN ×2 (06:27→21:22)
[2020-08-28] MEDS: IBUPROFEN 400 MG TABLET (FP) PO PRN (06:27)
[2020-08-28] MEDS: BUPRENORPHINE/NALOXONE 2 MG/0.5 MG FILM PACKET SL SCH (06:28)
[2020-08-28] MEDS: PRENATAL VITAMINS W/ FOLIC ACID TABLET (FP) PO SCH (09:51)
[2020-08-28] MEDS: NICOTINE 14 MG/24 HOURS TOPICAL PATCH TD SCH (09:51)
[2020-08-28] MEDS: NICOTINE POLACRILEX 2 MG GUM BC PRN ×2 (12:17→21:23)
[2020-08-28] MEDS: THIAMINE HCL 100 MG TABLET (FP) PO SCH (21:21)
[2020-08-28] MEDS: MELATONIN 5 MG TABLETS PO SCH (21:21)
[2020-08-29] MEDS: METHOCARBAMOL 500 MG TABLET PO PRN ×2 (06:02→21:32)
[2020-08-29] MEDS: IBUPROFEN 400 MG TABLET (FP) PO PRN ×2 (06:02→21:32)
[2020-08-29] MEDS: NICOTINE POLACRILEX 2 MG GUM BC PRN ×3 (06:03→21:32)
[2020-08-29] MEDS: BUPRENORPHINE/NALOXONE 2 MG/0.5 MG FILM PACKET SL SCH (06:03)
[2020-08-29] MEDS: PRENATAL VITAMINS W/ FOLIC ACID TABLET (FP) PO SCH (09:46)
[2020-08-29] MEDS: NICOTINE 14 MG/24 HOURS TOPICAL PATCH TD SCH (09:46)
[2020-08-29] MEDS: THIAMINE HCL 100 MG TABLET (FP) PO SCH (21:32)
[2020-08-29] MEDS: MELATONIN 5 MG TABLETS PO SCH (21:32)
[2020-08-29] MEDS: hydrOXYzine PAMOATE 25 MG CAPSULE (FP) PO PRN (21:32)
[2020-08-30] MEDS: BUPRENORPHINE/NALOXONE 2 MG/0.5 MG FILM PACKET SL SCH (06:23)
[2020-08-30] MEDS: ACETAMINOPHEN 325 MG TABLET (FP) PO PRN (06:23)
[2020-08-30] MEDS: hydrOXYzine PAMOATE 25 MG CAPSULE (FP) PO PRN (06:24)
[2020-08-30] MEDS: NICOTINE POLACRILEX 2 MG GUM BC PRN ×2 (06:25→09:17)
[2020-08-30 06:48] VITALS: BP 135/81; PULSE 52; TEMP 97.5
[2020-08-30] MEDS: PRENATAL VITAMINS W/ FOLIC ACID TABLET (FP) PO SCH (09:16)
[2020-08-30] MEDS: NICOTINE 14 MG/24 HOURS TOPICAL PATCH TD SCH (09:16)
== END 2020-08-30 10:25 | disposition home or self-care (01) | DRG 772 ==
LOC: YASAS 13:23 → Y5N 15:51
PROVIDERS: ADMIT Allergy & Immunology; ATTEND Allergy & Immunology
PROC: HZ42ZZZ Group Counseling for Substance Abuse Treatment, Cognitive-Behavioral (ICD-10-PCS; principal; 2020-08-06)
DX: F11.20 Opioid dependence, uncomplicated (principal); F14.20 Cocaine dependence, uncomplicated; F17.210 Nicotine dependence, cigarettes, uncomplicated; F19.24 Other psychoactive substance dependence with psychoactive substance-induced mood disorder; F25.0 Schizoaffective disorder, bipolar type; F43.10 Post-traumatic stress disorder, unspecified; G47.00 Insomnia, unspecified; I10 Essential (primary) hypertension; K21.9 Gastro-esophageal reflux disease without esophagitis; N39.0 Urinary tract infection, site not specified; M54.5 Low back pain; G89.29 Other chronic pain; R76.11 Nonspecific reaction to tuberculin skin test without active tuberculosis; Z59.0 Homelessness
CPT/HCPCS: 36415; 71046-TC-FY; 80053; 81003; 82962; 83036; 85025; 85027; 85610; 85660; 86780

== ENCOUNTER 2021-01-20 12:55 | Inpatient (IN) | payer OTHER ==
[2021-01-20 14:47] VITALS: BMI 35.8
[2021-01-20] MEDS ORDERED: MAGNESIUM CITRATE 300 ML BOTTLE PO PRN (15:30)
[2021-01-20] MEDS ORDERED: MENTHOL/PHENOL 1 EACH UD MM PRN (15:30)
[2021-01-20] MEDS ORDERED: NICOTINE POLACRILEX 2 MG GUM BUC PRN (15:30)
[2021-01-20] MEDS ORDERED: NALOXONE (NARCAN) HCL 4 MG/0.1 ML SPRAY NS PRN (15:30)
[2021-01-20] MEDS ORDERED: METHOCARBAMOL 500 MG TABLET PO PRN (15:30)
[2021-01-20] MEDS ORDERED: IBUPROFEN 400 MG TABLET (FP) PO PRN (15:30)
[2021-01-20] MEDS ORDERED: MAGNESIUM HYDROX 2400MG/30ML ORAL SUSPENSION 30 ML CUP PO PRN (15:30)
[2021-01-20] MEDS ORDERED: BUPRENORPHINE/NALOXONE 2 MG/0.5 MG FILM PACKET SL ONE (15:30)
[2021-01-20] MEDS ORDERED: MAG HYDROX/AL HYDROX/SIMETH 30 ML UNIT-DOSE CUP PO PRN (15:30)
[2021-01-20] MEDS ORDERED: ACETAMINOPHEN 325 MG TABLET (FP) PO PRN ×2 (15:30)
[2021-01-20] MEDS ORDERED: BISMUTH SUBSALICYLATE 524 MG/30 ML UD PO PRN (15:30)
[2021-01-20] MEDS ORDERED: cloNIDine HCL 0.1 MG TABLET PO PRN (15:30)
[2021-01-20] MEDS ORDERED: ONDANSETRON *ODT* 4 MG TABLET SL PRN (15:30)
[2021-01-20] MEDS: hydrOXYzine PAMOATE 25 MG CAPSULE (FP) PO SCH ×2 (17:10→22:09)
[2021-01-20] MEDS: PRENATAL VITAMINS W/ FOLIC ACID TABLET (FP) PO SCH (17:14)
[2021-01-20] MEDS ORDERED: BUPRENORPHINE/NALOXONE 4 MG/1 MG FILM PACKET SL PRN (21:32)
[2021-01-20] MEDS: THIAMINE HCL 100 MG TABLET (FP) PO SCH (22:09)
[2021-01-20] MEDS: MELATONIN 5 MG TABLETS PO SCH (22:10)
[2021-01-21] MEDS: hydrOXYzine PAMOATE 25 MG CAPSULE (FP) PO SCH ×5 (06:12→23:02)
[2021-01-21] MEDS ORDERED: BUPRENORPHINE/NALOXONE 12 MG-3 MG SL FILM PACKET SL ONE (09:00)
[2021-01-21] MEDS: PRENATAL VITAMINS W/ FOLIC ACID TABLET (FP) PO SCH (10:10)
[2021-01-21 10:12] LABS: HEMATOCRIT 43.7 % (35.4-49); HEMOGLOBIN 14.7 GM/dL (11.7-16.9); MCH 30.1 pg (25.7-33.7); MCHC 33.5 g/dl (32.0-35.9); MEAN CELL VOLUME 89.8 fl (80-96); MEAN PLT VOLUME 11.7 fl (7.5-11.1); PLATELET COUNT 156 K/MM3 (134-434); RBC 4.87 M/mm3 (4.00-5.60); RDW 13.9 % (11.9-15.9); WHITE BLOOD COUNT 13.4 K/mm3 (4.0-10.0)
[2021-01-21 10:28] LABS: BILIRUBIN,TOTAL 0.7 mg/dL (0.2-1)
[2021-01-21 10:33] LABS: ALBUMIN 4.1 g/dl (3.4-5.0)
[2021-01-21 10:34] LABS: CALCIUM 9.6 mg/dL (8.5-10.1)
[2021-01-21 10:35] LABS: BLOOD UREA NITROGEN 26.4 mg/dL (7-18)
[2021-01-21 10:36] LABS: CREATININE 1.1 mg/dL (0.55-1.3)
[2021-01-21 10:37] LABS: TOT PROT 7.6 g/dl (6.4-8.2)
[2021-01-21] MEDS ORDERED: BUPRENORPHINE/NALOXONE 4 MG/1 MG FILM PACKET SL PRN (15:00)
[2021-01-21] MEDS: QUEtiapine FUMARATE 50 MG TABLET PO SCH (23:02)
[2021-01-21] MEDS: MELATONIN 5 MG TABLETS PO SCH (23:02)
[2021-01-21] MEDS: THIAMINE HCL 100 MG TABLET (FP) PO SCH (23:02)
[2021-01-22] MEDS: hydrOXYzine PAMOATE 25 MG CAPSULE (FP) PO SCH ×5 (06:34→22:13)
[2021-01-22] MEDS ORDERED: BUPRENORPHINE/NALOXONE 12 MG-3 MG SL FILM PACKET SL ONE (09:00)
[2021-01-22] MEDS: PRENATAL VITAMINS W/ FOLIC ACID TABLET (FP) PO SCH (10:08)
[2021-01-22 11:09] LABS: BASO % 0.4 % (0-2.0); EOS % 0.4 % (0-4.5); HEMATOCRIT 38.4 % (35.4-49); HEMOGLOBIN 13.1 GM/dL (11.7-16.9); LYMPH % 23.2 % (8-40); MCH 30.6 pg (25.7-33.7); MCHC 34.1 g/dl (32.0-35.9); MEAN CELL VOLUME 89.7 fl (80-96); MEAN PLT VOLUME 11.1 fl (7.5-11.1); MONO % 13.4 % (3.8-10.2); NEUT % 62.6 % (42.8-82.8); PLATELET COUNT 114 K/MM3 (134-434); RBC 4.28 M/mm3 (4.00-5.60); RDW 13.5 % (11.9-15.9); WHITE BLOOD COUNT 11.3 K/mm3 (4.0-10.0)
[2021-01-22] MEDS: MELATONIN 5 MG TABLETS PO SCH (22:12)
[2021-01-22] MEDS: QUEtiapine FUMARATE 50 MG TABLET PO SCH (22:13)
[2021-01-22] MEDS: THIAMINE HCL 100 MG TABLET (FP) PO SCH (22:13)
[2021-01-23] MEDS: hydrOXYzine PAMOATE 25 MG CAPSULE (FP) PO SCH ×5 (06:47→22:08)
[2021-01-23] MEDS ORDERED: BUPRENORPHINE/NALOXONE 12 MG-3 MG SL FILM (DETOX) SL ONE (09:00)
[2021-01-23] MEDS: PRENATAL VITAMINS W/ FOLIC ACID TABLET (FP) PO SCH (10:14)
[2021-01-23 14:07] LABS: SARS-CoV-2 NAA Not Detected (Not Detected)
[2021-01-23] MEDS ORDERED: BUPRENORPHINE/NALOXONE 2 MG/0.5 MG FILM (DETOX) SL ONE (21:00)
[2021-01-23] MEDS: QUEtiapine FUMARATE 50 MG TABLET PO SCH (22:08)
[2021-01-23] MEDS: THIAMINE HCL 100 MG TABLET (FP) PO SCH (22:08)
[2021-01-23] MEDS: MELATONIN 5 MG TABLETS PO SCH (22:08)
[2021-01-24] MEDS: hydrOXYzine PAMOATE 25 MG CAPSULE (FP) PO SCH ×2 (05:23→10:28)
[2021-01-24] MEDS ORDERED: BUPRENORPHINE/NALOXONE 4 MG/1 MG FILM (DETOX) SL ONE (06:00)
[2021-01-24] MEDS: PRENATAL VITAMINS W/ FOLIC ACID TABLET (FP) PO SCH (10:28)
[2021-01-24 10:58] VITALS: BP 132/72; PULSE 91; TEMP 98.6
== END 2021-01-24 11:57 | disposition other institution (70) | DRG 773 ==
LOC: YASAS 12:55 → Y6N 15:57
PROVIDERS: ADMIT Allergy & Immunology; ATTEND Allergy & Immunology
PROC: HZ2ZZZZ Detoxification Services for Substance Abuse Treatment (ICD-10-PCS; principal; 2021-01-20)
DX: F11.23 Opioid dependence with withdrawal (principal); F14.20 Cocaine dependence, uncomplicated; F17.210 Nicotine dependence, cigarettes, uncomplicated; F19.24 Other psychoactive substance dependence with psychoactive substance-induced mood disorder; F19.282 Other psychoactive substance dependence with psychoactive substance-induced sleep disorder; F25.9 Schizoaffective disorder, unspecified; F43.10 Post-traumatic stress disorder, unspecified; D72.829 Elevated white blood cell count, unspecified; I10 Essential (primary) hypertension; K21.9 Gastro-esophageal reflux disease without esophagitis; B18.2 Chronic viral hepatitis C; H54.62 Unqualified visual loss, left eye, normal vision right eye; E66.9 Obesity, unspecified; Z68.35 Body mass index [BMI] 35.0-35.9, adult; Z59.0 Homelessness; Z99.89 Dependence on other enabling machines and devices; Z56.0 Unemployment, unspecified; Z87.828 Personal history of other (healed) physical injury and trauma
CPT/HCPCS: 36415; 80053; 84520; 85025; 85027; 86780; C9803; U0003; U0005

== ENCOUNTER 2021-01-24 12:03 | Inpatient (IN) | payer OTHER ==
[2021-01-24] MEDS ORDERED: NALOXONE (NARCAN) HCL 4 MG/0.1 ML SPRAY NS PRN (14:13)
[2021-01-24] MEDS ORDERED: MAG HYDROX/AL HYDROX/SIMETH 30 ML UNIT-DOSE CUP PO PRN (14:13)
[2021-01-24] MEDS ORDERED: MAGNESIUM CITRATE 300 ML BOTTLE PO PRN (14:13)
[2021-01-24] MEDS ORDERED: P-EPHED 60MG/TRIPROLIDI 2.5MG TABLET PO PRN (14:13)
[2021-01-24] MEDS ORDERED: MAGNESIUM HYDROX 2400MG/30ML ORAL SUSPENSION 30 ML CUP PO PRN (14:13)
[2021-01-24] MEDS ORDERED: guaiFENesin 200 MG/10 ML 10 ML UNIT-DOSE CUPS PO PRN (14:13)
[2021-01-24] MEDS ORDERED: MENTHOL/PHENOL 1 EACH UD MM PRN (14:13)
[2021-01-24] MEDS ORDERED: ACETAMINOPHEN 325 MG TABLET (FP) PO PRN (14:13)
[2021-01-24] MEDS ORDERED: LOPERAMIDE HCL 2 MG CAPSULE PO PRN (14:13)
[2021-01-24] MEDS: MELATONIN 5 MG TABLETS PO SCH (21:20)
[2021-01-24] MEDS: THIAMINE HCL 100 MG TABLET (FP) PO SCH (21:20)
[2021-01-24] MEDS: QUEtiapine FUMARATE 50 MG TABLET PO SCH (21:21)
[2021-01-25] MEDS ORDERED: NICOTINE 7 MG/24 HOURS TOPICAL PATCH TD SCH (10:00)
[2021-01-25] MEDS: PRENATAL VITAMINS W/ FOLIC ACID TABLET (FP) PO SCH (10:13)
[2021-01-25] MEDS: QUEtiapine FUMARATE 50 MG TABLET PO SCH (21:05)
[2021-01-25] MEDS: THIAMINE HCL 100 MG TABLET (FP) PO SCH (21:05)
[2021-01-25] MEDS: MELATONIN 5 MG TABLETS PO SCH (21:06)
[2021-01-26] MEDS: PRENATAL VITAMINS W/ FOLIC ACID TABLET (FP) PO SCH (10:21)
[2021-01-26] MEDS: MELATONIN 5 MG TABLETS PO SCH (21:27)
[2021-01-26] MEDS: QUEtiapine FUMARATE 50 MG TABLET PO SCH (21:27)
[2021-01-26] MEDS: THIAMINE HCL 100 MG TABLET (FP) PO SCH (21:27)
[2021-01-27] MEDS: PRENATAL VITAMINS W/ FOLIC ACID TABLET (FP) PO SCH (10:15)
[2021-01-27] MEDS: MELATONIN 5 MG TABLETS PO SCH (21:53)
[2021-01-27] MEDS: QUEtiapine FUMARATE 50 MG TABLET PO SCH (21:53)
[2021-01-27] MEDS: BACITRACIN 0.9 GM PACKET TP SCH (21:53)
[2021-01-27] MEDS: THIAMINE HCL 100 MG TABLET (FP) PO SCH (21:53)
[2021-01-28] MEDS: PRENATAL VITAMINS W/ FOLIC ACID TABLET (FP) PO SCH (09:51)
[2021-01-28] MEDS: BACITRACIN 0.9 GM PACKET TP SCH ×2 (09:52→23:29)
[2021-01-28] MEDS: THIAMINE HCL 100 MG TABLET (FP) PO SCH (23:29)
[2021-01-28] MEDS: MELATONIN 5 MG TABLETS PO SCH (23:29)
[2021-01-28] MEDS: QUEtiapine FUMARATE 50 MG TABLET PO SCH (23:29)
[2021-01-29] MEDS: BACITRACIN 0.9 GM PACKET TP SCH ×2 (09:37→22:40)
[2021-01-29] MEDS: PRENATAL VITAMINS W/ FOLIC ACID TABLET (FP) PO SCH (09:37)
[2021-01-29] MEDS: QUEtiapine FUMARATE 50 MG TABLET PO SCH (22:41)
[2021-01-29] MEDS: MELATONIN 5 MG TABLETS PO SCH (22:41)
[2021-01-29] MEDS: THIAMINE HCL 100 MG TABLET (FP) PO SCH (22:42)
[2021-01-30] MEDS: BACITRACIN 0.9 GM PACKET TP SCH ×2 (09:12→22:55)
[2021-01-30] MEDS: PRENATAL VITAMINS W/ FOLIC ACID TABLET (FP) PO SCH (09:12)
[2021-01-30] MEDS: MELATONIN 5 MG TABLETS PO SCH (22:55)
[2021-01-30] MEDS: THIAMINE HCL 100 MG TABLET (FP) PO SCH (22:55)
[2021-01-30] MEDS: QUEtiapine FUMARATE 50 MG TABLET PO SCH (22:55)
[2021-01-31] MEDS ORDERED: cloNIDine HCL 0.1 MG TABLET PO ONE (08:15)
[2021-01-31] MEDS: BACITRACIN 0.9 GM PACKET TP SCH ×2 (09:55→21:05)
[2021-01-31] MEDS: amLODIPine BESYLATE 5 MG TABLET (FP) PO SCH (09:55)
[2021-01-31] MEDS: PRENATAL VITAMINS W/ FOLIC ACID TABLET (FP) PO SCH (09:55)
[2021-01-31 10:21] LABS: HEMATOCRIT 40.7 % (35.4-49); HEMOGLOBIN 13.7 GM/dL (11.7-16.9); MCH 29.8 pg (25.7-33.7); MCHC 33.7 g/dl (32.0-35.9); MEAN CELL VOLUME 88.4 fl (80-96); MEAN PLT VOLUME 9.6 fl (7.5-11.1); PLATELET COUNT 217 K/MM3 (134-434); RBC 4.61 M/mm3 (4.00-5.60); RDW 13.4 % (11.9-15.9); WHITE BLOOD COUNT 6.8 K/mm3 (4.0-10.0)
[2021-01-31 10:37] LABS: BLOOD UREA NITROGEN 17.2 mg/dL (7-18)
[2021-01-31 10:38] LABS: BILIRUBIN,TOTAL 0.3 mg/dL (0.2-1)
[2021-01-31 10:41] LABS: CALCIUM 8.7 mg/dL (8.5-10.1)
[2021-01-31 10:45] LABS: ALBUMIN 3.2 g/dl (3.4-5.0)
[2021-01-31] MEDS: MELATONIN 5 MG TABLETS PO SCH (21:05)
[2021-01-31] MEDS: THIAMINE HCL 100 MG TABLET (FP) PO SCH (21:05)
[2021-01-31] MEDS: QUEtiapine FUMARATE 50 MG TABLET PO SCH (21:05)
[2021-02-01] MEDS: BACITRACIN 0.9 GM PACKET TP SCH ×2 (10:12→21:34)
[2021-02-01] MEDS: PRENATAL VITAMINS W/ FOLIC ACID TABLET (FP) PO SCH (10:12)
[2021-02-01] MEDS: amLODIPine BESYLATE 5 MG TABLET (FP) PO SCH (10:12)
[2021-02-01] MEDS: THIAMINE HCL 100 MG TABLET (FP) PO SCH (21:33)
[2021-02-01] MEDS: MELATONIN 5 MG TABLETS PO SCH (21:33)
[2021-02-01] MEDS: QUEtiapine FUMARATE 50 MG TABLET PO SCH (21:33)
[2021-02-02] MEDS: PRENATAL VITAMINS W/ FOLIC ACID TABLET (FP) PO SCH (10:35)
[2021-02-02] MEDS: amLODIPine BESYLATE 5 MG TABLET (FP) PO SCH (10:35)
[2021-02-02] MEDS: BACITRACIN 0.9 GM PACKET TP SCH ×2 (10:35→21:07)
[2021-02-02] MEDS: MELATONIN 5 MG TABLETS PO SCH (21:06)
[2021-02-02] MEDS: THIAMINE HCL 100 MG TABLET (FP) PO SCH (21:06)
[2021-02-02] MEDS: QUEtiapine FUMARATE 50 MG TABLET PO SCH (21:06)
[2021-02-03] MEDS: PRENATAL VITAMINS W/ FOLIC ACID TABLET (FP) PO SCH (09:40)
[2021-02-03] MEDS: amLODIPine BESYLATE 5 MG TABLET (FP) PO SCH (09:40)
[2021-02-03] MEDS: BACITRACIN 0.9 GM PACKET TP SCH ×2 (09:41→21:43)
[2021-02-03] MEDS: QUEtiapine FUMARATE 50 MG TABLET PO SCH (21:43)
[2021-02-03] MEDS: THIAMINE HCL 100 MG TABLET (FP) PO SCH (21:43)
[2021-02-03] MEDS: MELATONIN 5 MG TABLETS PO SCH (21:43)
[2021-02-04] MEDS: BACITRACIN 0.9 GM PACKET TP SCH ×2 (10:32→22:55)
[2021-02-04] MEDS: PRENATAL VITAMINS W/ FOLIC ACID TABLET (FP) PO SCH (10:33)
[2021-02-04] MEDS: amLODIPine BESYLATE 5 MG TABLET (FP) PO SCH (10:33)
[2021-02-04] MEDS: THIAMINE HCL 100 MG TABLET (FP) PO SCH (22:50)
[2021-02-04] MEDS: MELATONIN 5 MG TABLETS PO SCH (22:55)
[2021-02-04] MEDS: QUEtiapine FUMARATE 50 MG TABLET PO SCH (22:55)
[2021-02-05] MEDS: PRENATAL VITAMINS W/ FOLIC ACID TABLET (FP) PO SCH (10:30)
[2021-02-05] MEDS: amLODIPine BESYLATE 5 MG TABLET (FP) PO SCH (10:30)
[2021-02-05] MEDS: BACITRACIN 0.9 GM PACKET TP SCH ×2 (10:30→22:02)
[2021-02-05] MEDS: THIAMINE HCL 100 MG TABLET (FP) PO SCH (21:07)
[2021-02-05] MEDS: QUEtiapine FUMARATE 50 MG TABLET PO SCH (21:08)
[2021-02-05] MEDS: MELATONIN 5 MG TABLETS PO SCH (21:08)
[2021-02-06] MEDS: PRENATAL VITAMINS W/ FOLIC ACID TABLET (FP) PO SCH (10:27)
[2021-02-06] MEDS: BACITRACIN 0.9 GM PACKET TP SCH ×2 (10:27→21:48)
[2021-02-06] MEDS: amLODIPine BESYLATE 5 MG TABLET (FP) PO SCH (10:27)
[2021-02-06] MEDS: MELATONIN 5 MG TABLETS PO SCH (21:48)
[2021-02-06] MEDS: QUEtiapine FUMARATE 50 MG TABLET PO SCH (21:48)
[2021-02-06] MEDS: THIAMINE HCL 100 MG TABLET (FP) PO SCH (21:48)
[2021-02-07] MEDS: BACITRACIN 0.9 GM PACKET TP SCH ×2 (10:36→21:07)
[2021-02-07] MEDS: amLODIPine BESYLATE 5 MG TABLET (FP) PO SCH (10:36)
[2021-02-07] MEDS: PRENATAL VITAMINS W/ FOLIC ACID TABLET (FP) PO SCH (10:36)
[2021-02-07] MEDS: MELATONIN 5 MG TABLETS PO SCH (21:06)
[2021-02-07] MEDS: THIAMINE HCL 100 MG TABLET (FP) PO SCH (21:06)
[2021-02-07] MEDS: QUEtiapine FUMARATE 50 MG TABLET PO SCH (21:07)
[2021-02-08] MEDS: PRENATAL VITAMINS W/ FOLIC ACID TABLET (FP) PO SCH (10:38)
[2021-02-08] MEDS: BACITRACIN 0.9 GM PACKET TP SCH ×2 (10:38→21:30)
[2021-02-08] MEDS: amLODIPine BESYLATE 5 MG TABLET (FP) PO SCH (10:38)
[2021-02-08] MEDS: MELATONIN 5 MG TABLETS PO SCH (21:29)
[2021-02-08] MEDS: QUEtiapine FUMARATE 50 MG TABLET PO SCH (21:29)
[2021-02-08] MEDS: THIAMINE HCL 100 MG TABLET (FP) PO SCH (21:29)
[2021-02-09] MEDS: amLODIPine BESYLATE 5 MG TABLET (FP) PO SCH (10:43)
[2021-02-09] MEDS: PRENATAL VITAMINS W/ FOLIC ACID TABLET (FP) PO SCH (10:43)
[2021-02-09] MEDS: BACITRACIN 0.9 GM PACKET TP SCH ×2 (10:44→21:02)
[2021-02-09] MEDS: THIAMINE HCL 100 MG TABLET (FP) PO SCH (21:02)
[2021-02-09] MEDS: MELATONIN 5 MG TABLETS PO SCH (21:02)
[2021-02-09] MEDS: QUEtiapine FUMARATE 50 MG TABLET PO SCH (21:02)
[2021-02-10] MEDS: amLODIPine BESYLATE 5 MG TABLET (FP) PO SCH (10:30)
[2021-02-10] MEDS: BACITRACIN 0.9 GM PACKET TP SCH ×2 (10:30→22:04)
[2021-02-10] MEDS: PRENATAL VITAMINS W/ FOLIC ACID TABLET (FP) PO SCH (10:30)
[2021-02-10] MEDS: BUPRENORPHINE/NALOXONE 2 MG/0.5 MG FILM PACKET SL SCH (10:31)
[2021-02-10] MEDS: THIAMINE HCL 100 MG TABLET (FP) PO SCH (22:04)
[2021-02-10] MEDS: QUEtiapine FUMARATE 50 MG TABLET PO SCH (22:04)
[2021-02-10] MEDS: MELATONIN 5 MG TABLETS PO SCH (22:04)
[2021-02-11] MEDS: BACITRACIN 0.9 GM PACKET TP SCH ×2 (10:21→21:05)
[2021-02-11] MEDS: PRENATAL VITAMINS W/ FOLIC ACID TABLET (FP) PO SCH (10:21)
[2021-02-11] MEDS: amLODIPine BESYLATE 5 MG TABLET (FP) PO SCH (10:21)
[2021-02-11] MEDS ORDERED: BUPRENORPHINE/NALOXONE 2 MG/0.5 MG FILM PACKET SL ONE (10:35)
[2021-02-11] MEDS ORDERED: DICLOFENAC SODIUM 25 MG TABLET.DR PO ONE (10:45)
[2021-02-11] MEDS ORDERED: BUPRENORPHINE/NALOXONE 8 MG/2 MG FILM PACKET SL ONE (10:45)
[2021-02-11] MEDS: BUPRENORPHINE/NALOXONE 2 MG/0.5 MG FILM PACKET SL SCH ×3 (11:34→21:04)
[2021-02-11] MEDS ORDERED: BUPRENORPHINE/NALOXONE 2 MG/0.5 MG FILM PACKET SL SCH (14:00)
[2021-02-11] MEDS: THIAMINE HCL 100 MG TABLET (FP) PO SCH (21:04)
[2021-02-11] MEDS: MELATONIN 5 MG TABLETS PO SCH (21:04)
[2021-02-11] MEDS: QUEtiapine FUMARATE 50 MG TABLET PO SCH (21:04)
[2021-02-12] MEDS: BUPRENORPHINE/NALOXONE 2 MG/0.5 MG FILM PACKET SL SCH ×3 (06:52→21:34)
[2021-02-12] MEDS: amLODIPine BESYLATE 5 MG TABLET (FP) PO SCH (09:33)
[2021-02-12] MEDS: BACITRACIN 0.9 GM PACKET TP SCH ×2 (09:33→21:35)
[2021-02-12] MEDS: PRENATAL VITAMINS W/ FOLIC ACID TABLET (FP) PO SCH (09:33)
[2021-02-12] MEDS: TOBRAMYCIN 0.3% OPHTH SOLN 5 ML BOTTLE OU SCH ×2 (13:10→21:35)
[2021-02-12] MEDS: MELATONIN 5 MG TABLETS PO SCH (21:35)
[2021-02-12] MEDS: QUEtiapine FUMARATE 50 MG TABLET PO SCH (21:35)
[2021-02-12] MEDS: THIAMINE HCL 100 MG TABLET (FP) PO SCH (21:35)
[2021-02-13] MEDS: BUPRENORPHINE/NALOXONE 2 MG/0.5 MG FILM PACKET SL SCH ×3 (07:05→21:07)
[2021-02-13] MEDS: TOBRAMYCIN 0.3% OPHTH SOLN 5 ML BOTTLE OU SCH ×3 (07:07→21:08)
[2021-02-13] MEDS: amLODIPine BESYLATE 5 MG TABLET (FP) PO SCH (09:50)
[2021-02-13] MEDS: BACITRACIN 0.9 GM PACKET TP SCH ×2 (09:50→21:08)
[2021-02-13] MEDS: PRENATAL VITAMINS W/ FOLIC ACID TABLET (FP) PO SCH (09:50)
[2021-02-13] MEDS: THIAMINE HCL 100 MG TABLET (FP) PO SCH (21:06)
[2021-02-13] MEDS: MELATONIN 5 MG TABLETS PO SCH (21:06)
[2021-02-13] MEDS: QUEtiapine FUMARATE 50 MG TABLET PO SCH (21:07)
[2021-02-14] MEDS: TOBRAMYCIN 0.3% OPHTH SOLN 5 ML BOTTLE OU SCH ×3 (06:40→22:06)
[2021-02-14] MEDS: BUPRENORPHINE/NALOXONE 2 MG/0.5 MG FILM PACKET SL SCH ×3 (06:40→22:08)
[2021-02-14] MEDS ORDERED: MASKS NR ONE (07:40)
[2021-02-14] MEDS: BACITRACIN 0.9 GM PACKET TP SCH ×2 (10:07→22:06)
[2021-02-14] MEDS: PRENATAL VITAMINS W/ FOLIC ACID TABLET (FP) PO SCH (10:07)
[2021-02-14] MEDS: NICOTINE POLACRILEX 2 MG GUM BUC PRN (10:08)
[2021-02-14] MEDS: amLODIPine BESYLATE 5 MG TABLET (FP) PO SCH (12:20)
[2021-02-14] MEDS: MELATONIN 5 MG TABLETS PO SCH (22:06)
[2021-02-14] MEDS: QUEtiapine FUMARATE 50 MG TABLET PO SCH (22:06)
[2021-02-14] MEDS: THIAMINE HCL 100 MG TABLET (FP) PO SCH (22:06)
[2021-02-15] MEDS: BUPRENORPHINE/NALOXONE 2 MG/0.5 MG FILM PACKET SL SCH ×3 (06:33→21:10)
[2021-02-15] MEDS: TOBRAMYCIN 0.3% OPHTH SOLN 5 ML BOTTLE OU SCH ×3 (06:34→21:12)
[2021-02-15] MEDS: amLODIPine BESYLATE 5 MG TABLET (FP) PO SCH (10:41)
[2021-02-15] MEDS: PRENATAL VITAMINS W/ FOLIC ACID TABLET (FP) PO SCH (10:41)
[2021-02-15] MEDS: BACITRACIN 0.9 GM PACKET TP SCH ×2 (10:41→21:12)
[2021-02-15] MEDS: NICOTINE POLACRILEX 2 MG GUM BUC PRN (14:37)
[2021-02-15] MEDS: MELATONIN 5 MG TABLETS PO SCH (21:11)
[2021-02-15] MEDS: QUEtiapine FUMARATE 50 MG TABLET PO SCH (21:11)
[2021-02-15] MEDS: THIAMINE HCL 100 MG TABLET (FP) PO SCH (21:11)
[2021-02-16] MEDS: BUPRENORPHINE/NALOXONE 2 MG/0.5 MG FILM PACKET SL SCH ×3 (06:55→21:45)
[2021-02-16] MEDS: TOBRAMYCIN 0.3% OPHTH SOLN 5 ML BOTTLE OU SCH ×3 (06:55→21:44)
[2021-02-16] MEDS: PRENATAL VITAMINS W/ FOLIC ACID TABLET (FP) PO SCH (11:34)
[2021-02-16] MEDS: BACITRACIN 0.9 GM PACKET TP SCH ×2 (11:34→21:44)
[2021-02-16] MEDS: amLODIPine BESYLATE 5 MG TABLET (FP) PO SCH (11:34)
[2021-02-16] MEDS: NICOTINE POLACRILEX 2 MG GUM BUC PRN (14:14)
[2021-02-16] MEDS: MELATONIN 5 MG TABLETS PO SCH (21:44)
[2021-02-16] MEDS: THIAMINE HCL 100 MG TABLET (FP) PO SCH (21:44)
[2021-02-16] MEDS: QUEtiapine FUMARATE 50 MG TABLET PO SCH (21:44)
[2021-02-16] MEDS: IBUPROFEN 400 MG TABLET (FP) PO PRN (21:45)
[2021-02-17] MEDS ORDERED: BUPRENORPHINE/NALOXONE 2 MG/0.5 MG FILM PACKET SL SCH (06:00)
[2021-02-17] MEDS: TOBRAMYCIN 0.3% OPHTH SOLN 5 ML BOTTLE OU SCH ×3 (06:02→21:15)
[2021-02-17] MEDS: BUPRENORPHINE/NALOXONE 2 MG/0.5 MG FILM PACKET SL SCH ×3 (06:02→21:14)
[2021-02-17] MEDS: PRENATAL VITAMINS W/ FOLIC ACID TABLET (FP) PO SCH (10:17)
[2021-02-17] MEDS: BACITRACIN 0.9 GM PACKET TP SCH ×2 (10:17→21:14)
[2021-02-17] MEDS: amLODIPine BESYLATE 5 MG TABLET (FP) PO SCH (10:17)
[2021-02-17] MEDS: hydrOXYzine PAMOATE 25 MG CAPSULE (FP) PO PRN (10:18)
[2021-02-17] MEDS: QUEtiapine FUMARATE 50 MG TABLET PO SCH (21:14)
[2021-02-17] MEDS: THIAMINE HCL 100 MG TABLET (FP) PO SCH (21:14)
[2021-02-17] MEDS: MELATONIN 5 MG TABLETS PO SCH (21:14)
[2021-02-17] MEDS: IBUPROFEN 400 MG TABLET (FP) PO PRN (21:15)
[2021-02-18] MEDS: TOBRAMYCIN 0.3% OPHTH SOLN 5 ML BOTTLE OU SCH ×3 (06:29→21:57)
[2021-02-18] MEDS: BUPRENORPHINE/NALOXONE 2 MG/0.5 MG FILM PACKET SL SCH ×3 (06:29→21:59)
[2021-02-18] MEDS: PRENATAL VITAMINS W/ FOLIC ACID TABLET (FP) PO SCH (10:25)
[2021-02-18] MEDS: amLODIPine BESYLATE 5 MG TABLET (FP) PO SCH (10:26)
[2021-02-18] MEDS: BACITRACIN 0.9 GM PACKET TP SCH ×2 (10:26→22:00)
[2021-02-18] MEDS: NICOTINE POLACRILEX 2 MG GUM BUC PRN ×2 (10:28→22:01)
[2021-02-18] MEDS: HYDROCHLOROTHIAZIDE 12.5 MG CAPSULE (FP) PO SCH (11:51)
[2021-02-18] MEDS: CEPHALEXIN MONOHYDRATE 500 MG CAPSULE (UD) PO SCH ×2 (11:51→21:58)
[2021-02-18] MEDS: MELATONIN 5 MG TABLETS PO SCH (21:57)
[2021-02-18] MEDS: THIAMINE HCL 100 MG TABLET (FP) PO SCH (21:57)
[2021-02-18] MEDS: QUEtiapine FUMARATE 50 MG TABLET PO SCH (21:58)
[2021-02-19] MEDS: BUPRENORPHINE/NALOXONE 2 MG/0.5 MG FILM PACKET SL SCH ×3 (06:46→21:17)
[2021-02-19] MEDS: TOBRAMYCIN 0.3% OPHTH SOLN 5 ML BOTTLE OU SCH ×3 (06:46→21:17)
[2021-02-19] MEDS: IBUPROFEN 400 MG TABLET (FP) PO PRN ×2 (06:48→15:41)
[2021-02-19] MEDS: NICOTINE POLACRILEX 2 MG GUM BUC PRN ×2 (09:53→15:42)
[2021-02-19] MEDS: HYDROCHLOROTHIAZIDE 12.5 MG CAPSULE (FP) PO SCH (09:53)
[2021-02-19] MEDS: amLODIPine BESYLATE 5 MG TABLET (FP) PO SCH (09:53)
[2021-02-19] MEDS: CEPHALEXIN MONOHYDRATE 500 MG CAPSULE (UD) PO SCH ×2 (09:53→21:14)
[2021-02-19] MEDS: BACITRACIN 0.9 GM PACKET TP SCH ×2 (09:53→21:17)
[2021-02-19] MEDS: PRENATAL VITAMINS W/ FOLIC ACID TABLET (FP) PO SCH (09:53)
[2021-02-19] MEDS: hydrOXYzine PAMOATE 25 MG CAPSULE (FP) PO PRN (15:40)
[2021-02-19] MEDS: THIAMINE HCL 100 MG TABLET (FP) PO SCH (21:14)
[2021-02-19] MEDS: MELATONIN 5 MG TABLETS PO SCH (21:14)
[2021-02-19] MEDS: QUEtiapine FUMARATE 50 MG TABLET PO SCH (21:14)
[2021-02-20] MEDS: BUPRENORPHINE/NALOXONE 2 MG/0.5 MG FILM PACKET SL SCH ×3 (06:24→21:57)
[2021-02-20] MEDS: TOBRAMYCIN 0.3% OPHTH SOLN 5 ML BOTTLE OU SCH ×3 (06:25→21:58)
[2021-02-20] MEDS: IBUPROFEN 400 MG TABLET (FP) PO PRN (06:27)
[2021-02-20] MEDS: NICOTINE POLACRILEX 2 MG GUM BUC PRN ×2 (06:28→10:37)
[2021-02-20 07:09] VITALS: TEMP 97.7
[2021-02-20] MEDS: PRENATAL VITAMINS W/ FOLIC ACID TABLET (FP) PO SCH (10:35)
[2021-02-20] MEDS: BACITRACIN 0.9 GM PACKET TP SCH ×2 (10:35→21:56)
[2021-02-20] MEDS: HYDROCHLOROTHIAZIDE 12.5 MG CAPSULE (FP) PO SCH (10:35)
[2021-02-20] MEDS: hydrOXYzine PAMOATE 25 MG CAPSULE (FP) PO PRN (10:35)
[2021-02-20] MEDS: amLODIPine BESYLATE 5 MG TABLET (FP) PO SCH (10:35)
[2021-02-20] MEDS: CEPHALEXIN MONOHYDRATE 500 MG CAPSULE (UD) PO SCH ×2 (10:35→21:56)
[2021-02-20] MEDS: MELATONIN 5 MG TABLETS PO SCH (21:56)
[2021-02-20] MEDS: THIAMINE HCL 100 MG TABLET (FP) PO SCH (21:56)
[2021-02-20] MEDS: QUEtiapine FUMARATE 50 MG TABLET PO SCH (21:56)
[2021-02-21] MEDS: BUPRENORPHINE/NALOXONE 2 MG/0.5 MG FILM PACKET SL SCH (06:39)
[2021-02-21 06:41] VITALS: BP 124/76; PULSE 80
[2021-02-21] MEDS: TOBRAMYCIN 0.3% OPHTH SOLN 5 ML BOTTLE OU SCH (06:41)
[2021-02-21] MEDS: PRENATAL VITAMINS W/ FOLIC ACID TABLET (FP) PO SCH (09:02)
[2021-02-21] MEDS: CEPHALEXIN MONOHYDRATE 500 MG CAPSULE (UD) PO SCH (09:02)
[2021-02-21] MEDS: BACITRACIN 0.9 GM PACKET TP SCH (09:02)
[2021-02-21] MEDS: HYDROCHLOROTHIAZIDE 12.5 MG CAPSULE (FP) PO SCH (09:08)
[2021-02-21] MEDS: amLODIPine BESYLATE 5 MG TABLET (FP) PO SCH (09:08)
[2021-02-21] MEDS: IBUPROFEN 400 MG TABLET (FP) PO PRN (09:09)
[2021-02-21] MEDS: NICOTINE POLACRILEX 2 MG GUM BUC PRN (09:10)
== END 2021-02-21 09:44 | disposition home or self-care (01) | DRG 772 ==
LOC: YASAS 12:03 → Y3W 12:04
PROVIDERS: ADMIT Allergy & Immunology; ATTEND Allergy & Immunology
PROC: HZ42ZZZ Group Counseling for Substance Abuse Treatment, Cognitive-Behavioral (ICD-10-PCS; principal; 2021-01-24)
DX: F11.20 Opioid dependence, uncomplicated (principal); F10.20 Alcohol dependence, uncomplicated; F14.20 Cocaine dependence, uncomplicated; F12.20 Cannabis dependence, uncomplicated; F17.210 Nicotine dependence, cigarettes, uncomplicated; L85.3 Xerosis cutis; H10.9 Unspecified conjunctivitis; R60.0 Localized edema; R07.89 Other chest pain; Z59.0 Homelessness
CPT/HCPCS: 36415; 80053; 82550; 82962; 84484; 85027; 93005; 93010; C9803; J0735; U0003; U0005

== ENCOUNTER 2023-03-31 09:20 | Inpatient (IN) | payer OTHER ==
[2023-03-31 10:09] VITALS: BMI 34.8
[2023-03-31] MEDS ORDERED: BENZONATATE 200 MG CAPSULE PO PRN (11:00)
[2023-03-31] MEDS ORDERED: POLYETHYLENE GLYCOL (HEALTHYLAX) 3350 17 GM PACKET PO PRN (11:00)
[2023-03-31] MEDS ORDERED: ACETAMINOPHEN 325 MG TABLET (FP) PO PRN (11:00)
[2023-03-31] MEDS ORDERED: IBUPROFEN 400 MG TABLET (FP) PO PRN (11:00)
[2023-03-31] MEDS ORDERED: ONDANSETRON *ODT* 4 MG TABLET SL PRN (11:00)
[2023-03-31] MEDS ORDERED: MAGNESIUM HYDROX 2400MG/30ML ORAL SUSPENSION 30 ML CUP PO PRN (11:00)
[2023-03-31] MEDS ORDERED: NALOXONE HCL 0.4 MG/ML VIAL IM PRN (11:00)
[2023-03-31] MEDS ORDERED: methaDONE HCL 10 MG TABLET (FOR DETOX USE ONLY) PO ONE (11:00)
[2023-03-31] MEDS ORDERED: BISMUTH SUBSALICYLATE 524 MG/30 ML PO PRN (11:00)
[2023-03-31] MEDS ORDERED: DICYCLOMINE HCL 10 MG CAPSULE PO PRN (11:00)
[2023-03-31] MEDS ORDERED: guaiFENesin 600 MG TABLET.ER (FP) PO PRN (11:00)
[2023-03-31] MEDS ORDERED: NALOXONE HCL (KLOXXADO) 8 MG SPRAY NS PRN (11:00)
[2023-03-31] MEDS ORDERED: MAG HYDROX/AL HYDROX/SIMETH 30 ML UNIT-DOSE CUP PO PRN (11:00)
[2023-03-31] MEDS ORDERED: BENZOCAINE/MENTHOL (CHLORASEPTIC ) LOZENGE MM PRN (11:00)
[2023-03-31] MEDS ORDERED: cloNIDine HCL 0.1 MG TABLET PO PRN (11:00)
[2023-03-31] MEDS ORDERED: IBUPROFEN 600 MG TABLET (FP) PO PRN (11:00)
[2023-03-31] MEDS ORDERED: LOPERAMIDE HCL 2 MG CAPSULE PO PRN (11:00)
[2023-03-31] MEDS ORDERED: methaDONE HCL 10 MG TABLET (FOR DETOX USE ONLY) ONE (11:24)
[2023-03-31] MEDS: hydrOXYzine PAMOATE 25 MG CAPSULE (FP) PO PRN (22:20)
[2023-03-31] MEDS: MELATONIN 5 MG TABLETS PO SCH (22:20)
[2023-03-31] MEDS: METHOCARBAMOL 500 MG TABLET PO PRN (22:20)
[2023-03-31] MEDS: THIAMINE HCL 100 MG TABLET (FP) PO SCH (22:21)
[2023-04-01] MEDS: PRENATAL VITAMINS W/ FOLIC ACID TABLET (FP) PO SCH (10:39)
[2023-04-01] MEDS: METHOCARBAMOL 500 MG TABLET PO PRN ×2 (10:39→22:44)
[2023-04-01 11:55] LABS: HEMATOCRIT 43.1 % (35.4-49); HEMOGLOBIN 14.3 GM/dL (11.7-16.9); MCH 30.1 pg (25.7-33.7); MCHC 33.1 g/dl (32.0-35.9); MEAN CELL VOLUME 90.8 fl (80-96); MEAN PLT VOLUME 10.9 fl (7.5-11.1); PLATELET COUNT 167 10^3/uL (134-434); RBC 4.75 M/mm3 (4.00-5.60); RDW 13.9 % (11.9-15.9); WHITE BLOOD COUNT 7.2 K/mm3 (4.0-10.0)
[2023-04-01 12:13] LABS: POTASSIUM 4.1 mmol/L (3.5-5.1)
[2023-04-01 12:21] LABS: ALBUMIN 3.7 g/dl (3.4-5.0); BLOOD UREA NITROGEN 25.4 mg/dL (7-18)
[2023-04-01 12:24] LABS: CREATININE 0.8 mg/dL (0.55-1.3)
[2023-04-01 12:26] LABS: BILIRUBIN,TOTAL 0.7 mg/dL (0.2-1); TOT PROT 7.1 g/dl (6.4-8.2)
[2023-04-01] MEDS: THIAMINE HCL 100 MG TABLET (FP) PO SCH (22:43)
[2023-04-01] MEDS: MELATONIN 5 MG TABLETS PO SCH (22:43)
[2023-04-02] MEDS ORDERED: methaDONE HCL 10 MG TABLET (FOR DETOX USE ONLY) PO ONE (10:00)
[2023-04-02] MEDS: PRENATAL VITAMINS W/ FOLIC ACID TABLET (FP) PO SCH (10:08)
[2023-04-02] MEDS: hydrOXYzine PAMOATE 25 MG CAPSULE (FP) PO PRN ×2 (10:08→22:27)
[2023-04-02] MEDS: METHOCARBAMOL 500 MG TABLET PO PRN ×2 (10:08→22:27)
[2023-04-02] MEDS: THIAMINE HCL 100 MG TABLET (FP) PO SCH (22:26)
[2023-04-02] MEDS: MELATONIN 5 MG TABLETS PO SCH (22:26)
[2023-04-03] MEDS: PRENATAL VITAMINS W/ FOLIC ACID TABLET (FP) PO SCH (10:24)
[2023-04-03] MEDS: METHOCARBAMOL 500 MG TABLET PO PRN (22:14)
[2023-04-03] MEDS: THIAMINE HCL 100 MG TABLET (FP) PO SCH (22:14)
[2023-04-03] MEDS: MELATONIN 5 MG TABLETS PO SCH (22:14)
[2023-04-03] MEDS: NICOTINE POLACRILEX 2 MG GUM BUC PRN (22:14)
[2023-04-03] MEDS: hydrOXYzine PAMOATE 25 MG CAPSULE (FP) PO PRN (22:14)
[2023-04-04] MEDS ORDERED: methaDONE HCL 10 MG TABLET (FOR DETOX USE ONLY) PO ONE (10:00)
[2023-04-04] MEDS: PRENATAL VITAMINS W/ FOLIC ACID TABLET (FP) PO SCH (10:32)
[2023-04-04] MEDS: NICOTINE POLACRILEX 2 MG GUM BUC PRN ×2 (10:34→20:01)
[2023-04-04] MEDS: MELATONIN 5 MG TABLETS PO SCH (22:10)
[2023-04-04] MEDS: THIAMINE HCL 100 MG TABLET (FP) PO SCH (22:10)
[2023-04-04] MEDS: METHOCARBAMOL 500 MG TABLET PO PRN (22:11)
[2023-04-04] MEDS: hydrOXYzine PAMOATE 25 MG CAPSULE (FP) PO PRN (22:11)
[2023-04-05 09:12] VITALS: PULSE 65
[2023-04-05] MEDS: PRENATAL VITAMINS W/ FOLIC ACID TABLET (FP) PO SCH (10:18)
[2023-04-05] MEDS: NICOTINE POLACRILEX 2 MG GUM BUC PRN (10:20)
[2023-04-05 12:59] VITALS: BP 122/84; RESP 20; TEMP 98.2
== END 2023-04-05 13:07 | disposition home or self-care (01) | DRG 773 ==
LOC: YASAS 09:20 → Y3N 10:38
PROVIDERS: ADMIT Allergy & Immunology; ATTEND Surgery
PROC: HZ2ZZZZ Detoxification Services for Substance Abuse Treatment (ICD-10-PCS; principal; 2023-03-31)
DX: F11.23 Opioid dependence with withdrawal (principal); F14.20 Cocaine dependence, uncomplicated; F17.210 Nicotine dependence, cigarettes, uncomplicated; F43.10 Post-traumatic stress disorder, unspecified; F31.9 Bipolar disorder, unspecified; F25.9 Schizoaffective disorder, unspecified; I10 Essential (primary) hypertension; K21.9 Gastro-esophageal reflux disease without esophagitis; M54.59 Other low back pain; G89.29 Other chronic pain; H54.40 Blindness, one eye, unspecified eye; E22.9 Hyperfunction of pituitary gland, unspecified; Z68.34 Body mass index [BMI] 34.0-34.9, adult; Z56.0 Unemployment, unspecified; Z59.00 Homelessness unspecified
CPT/HCPCS: 36415; 80053; 85027; 86780; 87635

== ENCOUNTER 2023-05-18 11:33 | Inpatient (IN) | payer OTHER ==
[2023-05-18 11:53] VITALS: BMI 33.9
[2023-05-18] MEDS ORDERED: NALOXONE HCL (KLOXXADO) 8 MG SPRAY NS PRN (15:40)
[2023-05-18] MEDS ORDERED: POLYETHYLENE GLYCOL (HEALTHYLAX) 3350 17 GM PACKET PO PRN (15:40)
[2023-05-18] MEDS ORDERED: COLLOIDAL OATMEAL 1 BAR EACH TP PRN (15:40)
[2023-05-18] MEDS ORDERED: guaiFENesin 600 MG TABLET.ER (FP) PO PRN (15:40)
[2023-05-18] MEDS ORDERED: MAG HYDROX/AL HYDROX/SIMETH 30 ML UNIT-DOSE CUP PO PRN (15:40)
[2023-05-18] MEDS ORDERED: IBUPROFEN 600 MG TABLET (FP) PO PRN (15:40)
[2023-05-18] MEDS ORDERED: LOPERAMIDE HCL 2 MG CAPSULE PO PRN (15:40)
[2023-05-18] MEDS ORDERED: ACETAMINOPHEN 325 MG TABLET (FP) PO PRN (15:40)
[2023-05-18] MEDS ORDERED: BENZOCAINE/MENTHOL (CHLORASEPTIC ) LOZENGE MM PRN (15:40)
[2023-05-18] MEDS ORDERED: NALOXONE HCL 0.4 MG/ML VIAL IM PRN (15:40)
[2023-05-18] MEDS ORDERED: MAGNESIUM HYDROX 2400MG/30ML ORAL SUSPENSION 30 ML CUP PO PRN (15:40)
[2023-05-18] MEDS ORDERED: BENZONATATE 200 MG CAPSULE PO PRN (15:40)
[2023-05-18] MEDS ORDERED: AMMONIUM LACTATE 12% LOTION 225 GM BOTTLE TP PRN (15:40)
[2023-05-18] MEDS ORDERED: IBUPROFEN 400 MG TABLET (FP) PO PRN (15:40)
[2023-05-18] MEDS ORDERED: P-EPHED 60MG/TRIPROLIDI 2.5MG TABLET PO PRN (15:40)
[2023-05-18] MEDS ORDERED: TUBERCULIN PPD 5 TU/0.1ML VIAL ID ONE (18:38)
[2023-05-18] MEDS: NICOTINE POLACRILEX 2 MG GUM BUC PRN (21:10)
[2023-05-18] MEDS: THIAMINE HCL 100 MG TABLET (FP) PO SCH (21:10)
[2023-05-18] MEDS: MELATONIN 5 MG TABLETS PO SCH (21:10)
[2023-05-19] MEDS: NICOTINE POLACRILEX 2 MG GUM BUC PRN (07:10)
[2023-05-19] MEDS: PRENATAL VITAMINS W/ FOLIC ACID TABLET (FP) PO SCH (09:40)
[2023-05-19 11:44] LABS: EPI CELLS 4 /uL (0-25.1); HYALINE CASTS 1 /uL (0-3.1); PH,URINE 5.5 (5.0-8.0); URINE APPEARANCE CLEAR; URINE BACTERIA 5 /uL (0-1359); URINE BILIRUBIN NEGATIVE (NEGATIVE); URINE COLOR YELLOW; URINE GLUCOSE (UA) NEGATIVE (NEGATIVE); URINE KETONE NEGATIVE (NEGATIVE); URINE LEUK ESTERASE NEGATIVE (NEGATIVE); URINE NITRITE NEGATIVE (NEGATIVE); URINE PROTEIN NEGATIVE (NEGATIVE); URINE RBC 8 /uL (0-23.9); URINE UROBILINOGEN 0.2 mg/dL (0.2-1.0); URINE WBC 5 /uL (0-25.8)
[2023-05-19] MEDS: MELATONIN 5 MG TABLETS PO SCH (21:49)
[2023-05-19] MEDS: THIAMINE HCL 100 MG TABLET (FP) PO SCH (21:49)
[2023-05-20] MEDS: hydrOXYzine PAMOATE 25 MG CAPSULE (FP) PO PRN (06:45)
[2023-05-20] MEDS: PRENATAL VITAMINS W/ FOLIC ACID TABLET (FP) PO SCH (10:44)
[2023-05-20 16:10] LABS: POTASSIUM 3.8 mmol/L (3.5-5.1)
[2023-05-20 16:12] LABS: HEMATOCRIT 42.5 % (35.4-49); HEMOGLOBIN 14.8 GM/dL (11.7-16.9); MCH 30.5 pg (25.7-33.7); MCHC 34.8 g/dl (32.0-35.9); MEAN CELL VOLUME 87.8 fl (80-96); MEAN PLT VOLUME 11.1 fl (7.5-11.1); PLATELET COUNT 140 10^3/uL (134-434); RBC 4.85 M/mm3 (4.00-5.60); RDW 13.4 % (11.9-15.9)
[2023-05-20 16:17] LABS: ALBUMIN 3.8 g/dl (3.4-5.0); BLOOD UREA NITROGEN 14.6 mg/dL (7-18)
[2023-05-20 16:20] LABS: CREATININE 1.1 mg/dL (0.55-1.3)
[2023-05-20 16:21] LABS: BILIRUBIN,TOTAL 0.4 mg/dL (0.2-1); TOT PROT 6.9 g/dl (6.4-8.2)
[2023-05-20] MEDS: MELATONIN 5 MG TABLETS PO SCH (22:06)
[2023-05-20] MEDS: THIAMINE HCL 100 MG TABLET (FP) PO SCH (22:06)
[2023-05-21] MEDS: NICOTINE POLACRILEX 2 MG GUM BUC PRN ×3 (10:12→18:41)
[2023-05-21] MEDS: PRENATAL VITAMINS W/ FOLIC ACID TABLET (FP) PO SCH (10:12)
[2023-05-21] MEDS ORDERED: BUPRENORPHINE/NALOXONE 4 MG/1 MG FILM PACKET SL SCH (10:30)
[2023-05-21] MEDS ORDERED: amLODIPine BESYLATE 10 MG TABLET (FP) PO SCH (10:30)
[2023-05-21] MEDS: BUPRENORPHINE/NALOXONE 2 MG/0.5 MG FILM PACKET SL SCH ×2 (12:13→21:18)
[2023-05-21] MEDS: amLODIPine BESYLATE 5 MG TABLET (FP) PO SCH (12:14)
[2023-05-21] MEDS: MELATONIN 5 MG TABLETS PO SCH (21:16)
[2023-05-21] MEDS: THIAMINE HCL 100 MG TABLET (FP) PO SCH (21:17)
[2023-05-22] MEDS: PRENATAL VITAMINS W/ FOLIC ACID TABLET (FP) PO SCH (09:34)
[2023-05-22] MEDS: amLODIPine BESYLATE 5 MG TABLET (FP) PO SCH (09:34)
[2023-05-22] MEDS: BUPRENORPHINE/NALOXONE 2 MG/0.5 MG FILM PACKET SL SCH ×2 (09:35→21:15)
[2023-05-22] MEDS: NICOTINE POLACRILEX 2 MG GUM BUC PRN ×2 (10:24→21:15)
[2023-05-22] MEDS: THIAMINE HCL 100 MG TABLET (FP) PO SCH (21:14)
[2023-05-22] MEDS: SUVOREXANT 10 MG TABLET PO PRN (21:15)
[2023-05-23] MEDS: NICOTINE POLACRILEX 2 MG GUM BUC PRN ×3 (00:02→13:33)
[2023-05-23] MEDS: amLODIPine BESYLATE 5 MG TABLET (FP) PO SCH (10:03)
[2023-05-23] MEDS: BUPRENORPHINE/NALOXONE 2 MG/0.5 MG FILM PACKET SL SCH ×2 (10:03→21:13)
[2023-05-23] MEDS: PRENATAL VITAMINS W/ FOLIC ACID TABLET (FP) PO SCH (10:03)
[2023-05-23] MEDS: THIAMINE HCL 100 MG TABLET (FP) PO SCH (21:12)
[2023-05-23] MEDS: SUVOREXANT 10 MG TABLET PO PRN (21:13)
[2023-05-24] MEDS: amLODIPine BESYLATE 5 MG TABLET (FP) PO SCH (10:01)
[2023-05-24] MEDS: PRENATAL VITAMINS W/ FOLIC ACID TABLET (FP) PO SCH (10:01)
[2023-05-24] MEDS: BUPRENORPHINE/NALOXONE 2 MG/0.5 MG FILM PACKET SL SCH ×2 (10:01→21:04)
[2023-05-24] MEDS: NICOTINE POLACRILEX 2 MG GUM BUC PRN ×3 (14:03→21:04)
[2023-05-24] MEDS: THIAMINE HCL 100 MG TABLET (FP) PO SCH (21:04)
[2023-05-24] MEDS: SUVOREXANT 10 MG TABLET PO PRN (21:04)
[2023-05-25] MEDS: NICOTINE POLACRILEX 2 MG GUM BUC PRN ×3 (08:36→21:31)
[2023-05-25] MEDS: amLODIPine BESYLATE 5 MG TABLET (FP) PO SCH (10:04)
[2023-05-25] MEDS: PRENATAL VITAMINS W/ FOLIC ACID TABLET (FP) PO SCH (10:04)
[2023-05-25] MEDS: BUPRENORPHINE/NALOXONE 2 MG/0.5 MG FILM PACKET SL SCH ×2 (10:04→21:26)
[2023-05-25] MEDS: SUVOREXANT 10 MG TABLET PO PRN (21:26)
[2023-05-25] MEDS: THIAMINE HCL 100 MG TABLET (FP) PO SCH (21:26)
[2023-05-26] MEDS: NICOTINE POLACRILEX 2 MG GUM BUC PRN ×2 (08:38→19:29)
[2023-05-26] MEDS: PRENATAL VITAMINS W/ FOLIC ACID TABLET (FP) PO SCH (09:19)
[2023-05-26] MEDS: BUPRENORPHINE/NALOXONE 2 MG/0.5 MG FILM PACKET SL SCH ×2 (09:20→21:48)
[2023-05-26] MEDS: amLODIPine BESYLATE 5 MG TABLET (FP) PO SCH (09:20)
[2023-05-26] MEDS: THIAMINE HCL 100 MG TABLET (FP) PO SCH (21:46)
[2023-05-26] MEDS: SUVOREXANT 10 MG TABLET PO PRN (21:47)
[2023-05-27] MEDS: PRENATAL VITAMINS W/ FOLIC ACID TABLET (FP) PO SCH (09:54)
[2023-05-27] MEDS: BUPRENORPHINE/NALOXONE 2 MG/0.5 MG FILM PACKET SL SCH ×2 (09:54→21:38)
[2023-05-27] MEDS: amLODIPine BESYLATE 5 MG TABLET (FP) PO SCH (09:55)
[2023-05-27] MEDS: NICOTINE POLACRILEX 2 MG GUM BUC PRN ×2 (10:00→21:42)
[2023-05-27] MEDS: THIAMINE HCL 100 MG TABLET (FP) PO SCH (21:38)
[2023-05-27] MEDS: SUVOREXANT 10 MG TABLET PO PRN (21:38)
[2023-05-28] MEDS: PRENATAL VITAMINS W/ FOLIC ACID TABLET (FP) PO SCH (09:54)
[2023-05-28] MEDS: BUPRENORPHINE/NALOXONE 2 MG/0.5 MG FILM PACKET SL SCH ×2 (09:54→21:10)
[2023-05-28] MEDS: amLODIPine BESYLATE 5 MG TABLET (FP) PO SCH (09:54)
[2023-05-28] MEDS: NICOTINE POLACRILEX 2 MG GUM BUC PRN (09:55)
[2023-05-28] MEDS: SUVOREXANT 10 MG TABLET PO PRN (21:09)
[2023-05-28] MEDS: THIAMINE HCL 100 MG TABLET (FP) PO SCH (21:10)
[2023-05-29] MEDS: PRENATAL VITAMINS W/ FOLIC ACID TABLET (FP) PO SCH (09:34)
[2023-05-29] MEDS: BUPRENORPHINE/NALOXONE 2 MG/0.5 MG FILM PACKET SL SCH ×2 (09:34→21:17)
[2023-05-29] MEDS: amLODIPine BESYLATE 5 MG TABLET (FP) PO SCH (09:34)
[2023-05-29] MEDS: NICOTINE POLACRILEX 2 MG GUM BUC PRN ×3 (09:51→21:21)
[2023-05-29] MEDS: SUVOREXANT 10 MG TABLET PO PRN (21:16)
[2023-05-29] MEDS: THIAMINE HCL 100 MG TABLET (FP) PO SCH (21:17)
[2023-05-29] MEDS ORDERED: SUVOREXANT 10 MG TABLET PO PRN (22:00)
[2023-05-30] MEDS: amLODIPine BESYLATE 5 MG TABLET (FP) PO SCH (09:29)
[2023-05-30] MEDS: PRENATAL VITAMINS W/ FOLIC ACID TABLET (FP) PO SCH (09:29)
[2023-05-30] MEDS: BUPRENORPHINE/NALOXONE 2 MG/0.5 MG FILM PACKET SL SCH ×2 (09:29→21:08)
[2023-05-30] MEDS: NICOTINE POLACRILEX 2 MG GUM BUC PRN ×2 (09:40→21:10)
[2023-05-30] MEDS: SUVOREXANT 10 MG TABLET PO PRN (21:07)
[2023-05-30] MEDS: THIAMINE HCL 100 MG TABLET (FP) PO SCH (21:08)
[2023-05-31] MEDS: NICOTINE POLACRILEX 2 MG GUM BUC PRN ×2 (06:19→21:29)
[2023-05-31] MEDS: amLODIPine BESYLATE 5 MG TABLET (FP) PO SCH (09:29)
[2023-05-31] MEDS: BUPRENORPHINE/NALOXONE 2 MG/0.5 MG FILM PACKET SL SCH ×2 (09:29→21:27)
[2023-05-31] MEDS: PRENATAL VITAMINS W/ FOLIC ACID TABLET (FP) PO SCH (09:29)
[2023-05-31] MEDS: THIAMINE HCL 100 MG TABLET (FP) PO SCH (21:28)
[2023-05-31] MEDS: SUVOREXANT 10 MG TABLET PO PRN (21:28)
[2023-06-01] MEDS: BUPRENORPHINE/NALOXONE 2 MG/0.5 MG FILM PACKET SL SCH ×2 (09:22→21:07)
[2023-06-01] MEDS: PRENATAL VITAMINS W/ FOLIC ACID TABLET (FP) PO SCH (09:22)
[2023-06-01] MEDS: amLODIPine BESYLATE 5 MG TABLET (FP) PO SCH (09:22)
[2023-06-01] MEDS: NICOTINE POLACRILEX 2 MG GUM BUC PRN (09:32)
[2023-06-01] MEDS: SUVOREXANT 10 MG TABLET PO PRN (21:06)
[2023-06-01] MEDS: THIAMINE HCL 100 MG TABLET (FP) PO SCH (21:06)
[2023-06-01] MEDS ORDERED: SUVOREXANT 10 MG TABLET PO PRN (22:00)
[2023-06-02] MEDS: PRENATAL VITAMINS W/ FOLIC ACID TABLET (FP) PO SCH (09:12)
[2023-06-02] MEDS: BUPRENORPHINE/NALOXONE 2 MG/0.5 MG FILM PACKET SL SCH ×2 (09:12→21:20)
[2023-06-02] MEDS: amLODIPine BESYLATE 5 MG TABLET (FP) PO SCH (09:12)
[2023-06-02] MEDS: SUVOREXANT 10 MG TABLET PO PRN (21:19)
[2023-06-02] MEDS: THIAMINE HCL 100 MG TABLET (FP) PO SCH (21:20)
[2023-06-03] MEDS: hydrOXYzine PAMOATE 25 MG CAPSULE (FP) PO PRN (06:44)
[2023-06-03] MEDS: PRENATAL VITAMINS W/ FOLIC ACID TABLET (FP) PO SCH (09:27)
[2023-06-03] MEDS: amLODIPine BESYLATE 5 MG TABLET (FP) PO SCH (09:27)
[2023-06-03] MEDS: BUPRENORPHINE/NALOXONE 2 MG/0.5 MG FILM PACKET SL SCH ×2 (09:27→21:07)
[2023-06-03] MEDS: NICOTINE POLACRILEX 2 MG GUM BUC PRN ×2 (09:34→12:44)
[2023-06-03] MEDS: THIAMINE HCL 100 MG TABLET (FP) PO SCH (21:07)
[2023-06-04] MEDS: PRENATAL VITAMINS W/ FOLIC ACID TABLET (FP) PO SCH (09:54)
[2023-06-04] MEDS: BACITRACIN 0.9 GM PACKET TP SCH ×2 (09:57→21:01)
[2023-06-04] MEDS: amLODIPine BESYLATE 10 MG TABLET (FP) PO SCH (09:58)
[2023-06-04] MEDS: NICOTINE POLACRILEX 2 MG GUM BUC PRN ×2 (10:01→17:16)
[2023-06-04] MEDS: BUPRENORPHINE/NALOXONE 8 MG/2 MG FILM PACKET SL SCH ×2 (11:00→17:15)
[2023-06-04] MEDS: SUVOREXANT 10 MG TABLET PO PRN (21:01)
[2023-06-04] MEDS: THIAMINE HCL 100 MG TABLET (FP) PO SCH (21:01)
[2023-06-05] MEDS: BUPRENORPHINE/NALOXONE 8 MG/2 MG FILM PACKET SL SCH ×3 (06:23→18:28)
[2023-06-05] MEDS: NICOTINE POLACRILEX 2 MG GUM BUC PRN ×2 (06:24→16:15)
[2023-06-05] MEDS: PRENATAL VITAMINS W/ FOLIC ACID TABLET (FP) PO SCH (10:12)
[2023-06-05] MEDS: BACITRACIN 0.9 GM PACKET TP SCH ×2 (10:12→21:42)
[2023-06-05] MEDS: amLODIPine BESYLATE 10 MG TABLET (FP) PO SCH (10:12)
[2023-06-05] MEDS: THIAMINE HCL 100 MG TABLET (FP) PO SCH (21:41)
[2023-06-05] MEDS: SUVOREXANT 10 MG TABLET PO PRN (21:41)
[2023-06-06] MEDS: BUPRENORPHINE/NALOXONE 8 MG/2 MG FILM PACKET SL SCH ×3 (06:09→18:55)
[2023-06-06] MEDS: PRENATAL VITAMINS W/ FOLIC ACID TABLET (FP) PO SCH (10:10)
[2023-06-06] MEDS: amLODIPine BESYLATE 10 MG TABLET (FP) PO SCH (10:10)
[2023-06-06] MEDS: BACITRACIN 0.9 GM PACKET TP SCH ×2 (10:10→21:15)
[2023-06-06] MEDS: NICOTINE POLACRILEX 2 MG GUM BUC PRN ×3 (10:11→21:15)
[2023-06-06] MEDS: QUEtiapine FUMARATE 50 MG TABLET PO SCH (21:14)
[2023-06-06] MEDS: THIAMINE HCL 100 MG TABLET (FP) PO SCH (21:14)
[2023-06-07] MEDS: BUPRENORPHINE/NALOXONE 8 MG/2 MG FILM PACKET SL SCH ×3 (06:49→18:20)
[2023-06-07] MEDS: PRENATAL VITAMINS W/ FOLIC ACID TABLET (FP) PO SCH (10:18)
[2023-06-07] MEDS: BACITRACIN 0.9 GM PACKET TP SCH ×2 (10:18→21:17)
[2023-06-07] MEDS: amLODIPine BESYLATE 10 MG TABLET (FP) PO SCH (10:18)
[2023-06-07] MEDS: NICOTINE POLACRILEX 2 MG GUM BUC PRN ×2 (12:57→18:24)
[2023-06-07] MEDS: THIAMINE HCL 100 MG TABLET (FP) PO SCH (21:17)
[2023-06-07] MEDS: QUEtiapine FUMARATE 50 MG TABLET PO SCH (21:17)
[2023-06-08] MEDS: BUPRENORPHINE/NALOXONE 8 MG/2 MG FILM PACKET SL SCH ×3 (06:18→18:25)
[2023-06-08] MEDS: BACITRACIN 0.9 GM PACKET TP SCH ×2 (10:04→21:23)
[2023-06-08] MEDS: PRENATAL VITAMINS W/ FOLIC ACID TABLET (FP) PO SCH (10:04)
[2023-06-08] MEDS: amLODIPine BESYLATE 10 MG TABLET (FP) PO SCH (10:04)
[2023-06-08] MEDS: NICOTINE POLACRILEX 2 MG GUM BUC PRN ×2 (10:05→18:28)
[2023-06-08] MEDS: QUEtiapine FUMARATE 50 MG TABLET PO SCH (21:22)
[2023-06-08] MEDS: THIAMINE HCL 100 MG TABLET (FP) PO SCH (21:22)
[2023-06-09] MEDS: BUPRENORPHINE/NALOXONE 8 MG/2 MG FILM PACKET SL SCH ×3 (06:08→18:59)
[2023-06-09] MEDS: NICOTINE POLACRILEX 2 MG GUM BUC PRN ×3 (06:08→12:08)
[2023-06-09] MEDS: PRENATAL VITAMINS W/ FOLIC ACID TABLET (FP) PO SCH (10:10)
[2023-06-09] MEDS: amLODIPine BESYLATE 10 MG TABLET (FP) PO SCH (10:11)
[2023-06-09] MEDS: BACITRACIN 0.9 GM PACKET TP SCH ×2 (10:11→21:20)
[2023-06-09] MEDS: QUEtiapine FUMARATE 50 MG TABLET PO SCH (21:20)
[2023-06-09] MEDS: THIAMINE HCL 100 MG TABLET (FP) PO SCH (21:20)
[2023-06-10] MEDS: BUPRENORPHINE/NALOXONE 8 MG/2 MG FILM PACKET SL SCH ×3 (06:07→18:16)
[2023-06-10] MEDS: BACITRACIN 0.9 GM PACKET TP SCH ×2 (09:58→21:34)
[2023-06-10] MEDS: PRENATAL VITAMINS W/ FOLIC ACID TABLET (FP) PO SCH (09:58)
[2023-06-10] MEDS: amLODIPine BESYLATE 10 MG TABLET (FP) PO SCH (09:58)
[2023-06-10] MEDS: NICOTINE POLACRILEX 2 MG GUM BUC PRN (18:18)
[2023-06-10] MEDS: QUEtiapine FUMARATE 50 MG TABLET PO SCH (21:34)
[2023-06-10] MEDS: THIAMINE HCL 100 MG TABLET (FP) PO SCH (21:34)
[2023-06-11] MEDS: BUPRENORPHINE/NALOXONE 8 MG/2 MG FILM PACKET SL SCH ×3 (06:37→18:25)
[2023-06-11 09:06] VITALS: RESP 17
[2023-06-11] MEDS: PRENATAL VITAMINS W/ FOLIC ACID TABLET (FP) PO SCH (09:18)
[2023-06-11] MEDS: BACITRACIN 0.9 GM PACKET TP SCH ×2 (09:18→21:09)
[2023-06-11] MEDS: amLODIPine BESYLATE 10 MG TABLET (FP) PO SCH (09:18)
[2023-06-11] MEDS: NICOTINE POLACRILEX 2 MG GUM BUC PRN (18:25)
[2023-06-11] MEDS: THIAMINE HCL 100 MG TABLET (FP) PO SCH (21:08)
[2023-06-11] MEDS: QUEtiapine FUMARATE 50 MG TABLET PO SCH (21:08)
[2023-06-12] MEDS: BUPRENORPHINE/NALOXONE 8 MG/2 MG FILM PACKET SL SCH (06:08)
[2023-06-12 07:32] VITALS: BP 147/88; PULSE 84; TEMP 97.8
== END 2023-06-12 09:51 | disposition home or self-care (01) | DRG 772 ==
LOC: YASAS 11:33 → Y3W 18:02
PROVIDERS: ADMIT Allergy & Immunology; ATTEND Psychiatry & Neurology Pain Medicine
PROC: HZ42ZZZ Group Counseling for Substance Abuse Treatment, Cognitive-Behavioral (ICD-10-PCS; principal; 2023-05-18)
DX: F11.20 Opioid dependence, uncomplicated (principal); F14.20 Cocaine dependence, uncomplicated; F10.20 Alcohol dependence, uncomplicated; F12.20 Cannabis dependence, uncomplicated; F17.210 Nicotine dependence, cigarettes, uncomplicated; F19.282 Other psychoactive substance dependence with psychoactive substance-induced sleep disorder; F31.9 Bipolar disorder, unspecified; F25.9 Schizoaffective disorder, unspecified; G47.00 Insomnia, unspecified; H54.62 Unqualified visual loss, left eye, normal vision right eye; I10 Essential (primary) hypertension; R73.9 Hyperglycemia, unspecified; E66.9 Obesity, unspecified; Z68.33 Body mass index [BMI] 33.0-33.9, adult; Z86.19 Personal history of other infectious and parasitic diseases; Z86.59 Personal history of other mental and behavioral disorders; S05.8X2S Other injuries of left eye and orbit, sequela; Y93.71 Activity, boxing; Y92.9 Unspecified place or not applicable
CPT/HCPCS: 36415; 80053; 81003; 82962; 85027; 86780; 87635; 87811